=== PATIENT | male | born 1970 | race Caucasian/White ===

== ENCOUNTER 2017-07-22 17:13 | Emergency (ER) | payer MEDICAID ==
--- NOTE | 2017-07-22 17:55 | ER ---
Nurse's Notes [facility] Name: Austin Mtz Age: 47 yrs Sex: Male : 1970 Arrival Date: 07/22/2017 Time: 17:17 Bed Waiting Private MD: Diagnosis: ED Course: 07/22 17:17 Patient arrived in ED. sb2 17:30 Patient's name was called from ER lobby. No response. hb 17:38 Patient's name was called from ER lobby. No response. hb Administered Medications: No medications were administered Outcome: 17:55 Patient left the ED. hb Signatures: Katrin Bragg RN RN hb Francia Dai sb2
== END 2017-07-22 17:55 | disposition left against medical advice (07) ==
LOC: ER 17:13
DX: Z53.21 Procedure and treatment not carried out due to patient leaving prior to being seen by health care provider (principal)

== ENCOUNTER 2017-07-22 23:29 | Inpatient (IN) | payer MEDICAID ==
[2017-07-23] MEDS ORDERED: NA CHLORIDE 0.9% 2,000 ML ONE (00:39)
[2017-07-23] MEDS ORDERED: ACETAMINOPHEN 500 MG TAB ONE (00:39)
[2017-07-23 01:05] LABS: Absolute Lymphocytes (CBC) 0.6 K/uL (0.7-4.9); Absolute Monocytes 0.7 K/uL (0.1-1.3); Absolute Neutrophil 18.9 K/uL (1.8-8.0); Basophils % 0.2 % (0-1.3); Eosinophils % 0.1 % (0-4.4); Hematocrit 39.7 % (39.6-49.0); Lymphocytes % 2.9 % (15.3-44.8); MCH 29.3 pg (27.0-35.0); MCV 86.9 fL (80-100); MPV 8.8 fL (7.6-11.3); Monocytes % 3.7 % (3.3-12.3); RBC Red Blood Cell Count 4.57 M/uL (4.33-5.43)
[2017-07-23 01:37] LABS: BUN Blood Urea Nitrogen 12 mg/dL (6-20); Bicarbonate 26 mEq/L (21-31); Glucose Level 145 mg/dL (65-120); Sodium Level 138 mEq/L (135-145)
--- NOTE | 2017-07-23 01:49 | EDPHYS ---
Physician Documentation [facility] Name: Austin Mtz Age: 47 yrs Sex: Male : 1970 Arrival Date: 07/22/2017 Time: 23:29 Bed 19 Private MD: ED Physician Rian Johnson HPI: 07/23 00:01 This 47 yrs old Male presents to ER via Ambulatory with complaints of Leg pkl Pain. 00:01 The patient presents with pain, that is acute, swelling, erythema. The complaints pkl affect the medial aspect of right thigh. Onset: The symptoms/episode began/occurred yesterday. Associated signs and symptoms: Pertinent positives: fever, nausea, chills. The patient has experienced similar episodes in the past, several times. Historical: - Allergies: 07/22 23:54 Codeine; ak1 23:54 Haloperidol; ak1 - Home Meds: 23:54 None [Active]; ak1 - PMHx: 23:54 bells palsy; Bipolar disorder; Schizo-affective disorder; ak1 - PSHx: 23:54 Ear Tubes; ak1 - Immunization history:: Adult Immunizations unknown. - Social history:: Smoking status: Patient uses tobacco products, smokes one pack cigarettes per day. Patient uses street drugs, marijuana. - Ebola Screening: : No symptoms or risks identified at this time. ROS: 07/23 00:03 Eyes: Negative for injury, pain, redness, and discharge, ENT: Negative for injury, pkl pain, and discharge, Neck: Negative for injury, pain, and swelling, Cardiovascular: Negative for chest pain, palpitations, and edema, Respiratory: Negative for shortness of breath, cough, wheezing, and pleuritic chest pain, Abdomen/GI: Negative for abdominal pain, nausea, vomiting, diarrhea, and constipation, Back: Negative for injury and pain, : Negative for injury, bleeding, discharge, and swelling, Neuro: Negative for headache, weakness, numbness, tingling, and seizure. MS/extremity: Positive for erythema, pain, swelling, of the medial aspect of right thigh. Exam: 00:03 Head/Face: Normocephalic, atraumatic. Eyes: Pupils equal round and reactive to light, pkl extra-ocular motions intact. Lids and lashes normal. Conjunctiva and sclera are non-icteric and not injected. Cornea within normal limits. Periorbital areas with no swelling, redness, or edema. ENT: Nares patent. No nasal discharge, no septal abnormalities noted. Tympanic membranes are normal and external auditory canals are clear. Oropharynx with no redness, swelling, or masses, exudates, or evidence of obstruction, uvula midline. Mucous membranes moist. Neck: Trachea midline, no thyromegaly or masses palpated, and no cervical lymphadenopathy. Supple, full range of motion without nuchal rigidity, or vertebral point tenderness. No Meningismus. Chest/axilla: Normal chest wall appearance and motion. Nontender with no deformity. No lesions are appreciated. Cardiovascular: Regular rate and rhythm with a normal S1 and S2. No gallops, murmurs, or rubs. Normal PMI, no JVD. No pulse deficits. Respiratory: Lungs have equal breath sounds bilaterally, clear to auscultation and percussion. No rales, rhonchi or wheezes noted. No increased work of breathing, no retractions or nasal flaring. Abdomen/GI: Soft, non-tender, with normal bowel sounds. No distension or tympany. No guarding or rebound. No evidence of tenderness throughout. Back: No spinal tenderness. No costovertebral tenderness. Full range of motion. Neuro: Awake and alert, GCS 15, oriented to person, place, time, and situation. Cranial nerves II-XII grossly intact. Motor strength 5/5 in all extremities. Sensory grossly intact. Cerebellar exam normal. Normal gait. 00:03 Musculoskeletal/extremity: Extremities: grossly normal except: noted in the medial aspect of right thigh: erythema, pain, swelling. Vital Signs: 07/22 23:51 BP 132 / 82; Pulse 79; Resp 18; Temp 101.2(TE); Pulse Ox 98% on R/A; Weight 102.06 kg ak1 (R); Height 5 ft. 8 in. (172.72 cm) (R); Pain 09/20; 07/23 02:30 BP 129 / 75; Pulse 69; Resp 14; Temp 99.1; Pulse Ox 97% ; bp 07/22 23:51 Body Mass Index 34.21 (102.06 kg, 172.72 cm) ak1 MDM: 07/22 23:51 Patient medically screened. pkl 07/23 01:47 Data reviewed: vital signs, nurses notes, lab test result(s). pkl 07/23 00:01 Order name: CBC with Diff; Complete Time: 03:58 pkl 07/23 00:01 Order name: Chem 7; Complete Time: 01:44 pkl 07/23 00:01 Order name: Blood Culture Adult (2) pkl 06 00:01 Order name: Sed Rate; Complete Time: 03:58 pkl 07/23 00:01 Order name: D-Dimer; Complete Time: 01:24 pkl 07/23 00:03 Order name: UDS pkl 07/23 00:01 Order name: XRAY CXR (1 view) pkl 06 02:53 Order name: Manual Differential; Complete Time: 03:58 EDMS Administered Medications: 00:40 Drug: NS 0.9% 1000 ml Route: IV; Rate: 1000 ml; Site: right forearm; bp 02:57 Follow up: IV Status: Completed infusion; IV Intake: 1000ml bp 00:40 Drug: Tylenol 1000 mg Route: PO; bp 00:41 Follow up: Response: No adverse reaction bp 02:57 Follow up: Response: No adverse reaction; Temperature is decreased bp 00:41 Drug: NS 0.9% 1000 ml Route: IV; Rate: 125 ml/hr; Site: right forearm; bp 02:57 Follow up: IV Status: Infusion continued upon admission bp Disposition: 07/23/17 01:49 Hospitalization ordered by Amara Geiger for Inpatient Admission. Preliminary diagnosis is Fever. Cellulitis right leg. - Bed requested for Telemetry/MedSurg (Inpatient). - Status is Inpatient Admission. bp - Condition is Stable. - Problem is new. - Symptoms are unchanged. UTI on Admission? No Signatures: Dispatcher [employer] EDMS Laurie Garibay RN RN mw Rian Johnson MD MD pkl Muriel Mijares RN RN ak1 Jay Greenberg RN RN bp Corrections: (The following items were deleted from the chart) 01:53 01:49 Hospitalization Ordered by Amara Geiger MD for Inpatient Admission. Preliminary mw diagnosis is Fever. Cellulitis right leg. Bed requested for Telemetry/MedSurg (Inpatient). Status is Inpatient Admission. Condition is Stable. Problem is new. Symptoms are unchanged. UTI on Admission? No. pkl 02:57 01:53 07/23/2017 01:49 Hospitalization Ordered by Amara Geiger MD for Inpatient bp Admission. Preliminary diagnosis is Fever. Cellulitis right leg. Bed requested for Telemetry/MedSurg (Inpatient). Status is Inpatient Admission. Condition is Stable. Problem is new. Symptoms are unchanged. UTI on Admission? No. mw
--- NOTE | 2017-07-23 01:49 | ER ---
Nurse's Notes [facility] Name: Austin Mtz Age: 47 yrs Sex: Male : 1970 Arrival Date: 07/22/2017 Time: 23:29 Bed 19 Private MD: Diagnosis: Fever. Cellulitis right leg Presentation: 07/22 23:52 Presenting complaint: Patient states: right inner thigh pain X2 days. pt was asleep in ak1 the lobby and once woken up and told he needed to leave by registration pt chose to check in to be seen. pt was placed as eloped by day shift earlier today. Transition of care: patient was not received from another setting of care. Onset of symptoms was July 22, 2017. Risk Assessment: Do you want to hurt yourself or someone else? Patient reports no desire to harm self or others. Initial Sepsis Screen: Does the patient meet any 2 criteria? Temp <36.0*C (96.8*F)) or > 38.3*C (100.4*F). No. Patient's initial sepsis screen is negative. Does the patient have a suspected source of infection? No. Patient's initial sepsis screen is negative. Care prior to arrival: None. 23:52 Method Of Arrival: Ambulatory ak1 23:52 Acuity: FREDIS 3 bp Triage Assessment: 23:54 General: Appears in no apparent distress. Behavior is calm, cooperative. Pain: ak1 Complains of pain in medial aspect of right thigh. EENT: No signs and/or symptoms were reported regarding the EENT system. Neuro: No deficits noted. Cardiovascular: No deficits noted. Respiratory: No deficits noted. GI: No signs and/or symptoms were reported involving the gastrointestinal system. : No signs and/or symptoms were reported regarding the genitourinary system. Musculoskeletal: No signs and/or symptoms reported regarding the musculoskeletal system. Historical: - Allergies: 23:54 Codeine; ak1 23:54 Haloperidol; ak1 - Home Meds: 23:54 None [Active]; ak1 - PMHx: 23:54 bells palsy; Bipolar disorder; Schizo-affective disorder; ak1 - PSHx: 23:54 Ear Tubes; ak1 - Immunization history:: Adult Immunizations unknown. - Social history:: Smoking status: Patient uses tobacco products, smokes one pack cigarettes per day. Patient uses street drugs, marijuana. - Ebola Screening: : No symptoms or risks identified at this time. Screenin:57 Abuse screen: Denies threats or abuse. Denies injuries from another. Nutritional ak1 screening: No deficits noted. Tuberculosis screening: No symptoms or risk factors identified. Fall Risk None identified. Assessment: 07/23 00:08 General: Appears in no apparent distress. comfortable, Behavior is calm, cooperative, bp appropriate for age. Pain: Complains of pain in medial aspect of right thigh. Neuro: Level of Consciousness is awake, alert, obeys commands, Oriented to person, place, time, situation, Appropriate for age. Cardiovascular: No deficits noted. Respiratory: Airway is patent Respiratory effort is even, unlabored, Respiratory pattern is regular, symmetrical. GI: No signs and/or symptoms were reported involving the gastrointestinal system. : No signs and/or symptoms were reported regarding the genitourinary system. EENT: No deficits noted. Derm: ERYTHEMA R MEDIAL THIGH. Musculoskeletal: Circulation, motion, and sensation intact. Range of motion: intact in all extremities. 02:24 Reassessment: ADMIT MD AT B/S FOR EVAL. bp Vital Signs: 07/22 23:51 BP 132 / 82; Pulse 79; Resp 18; Temp 101.2(TE); Pulse Ox 98% on R/A; Weight 102.06 kg ak1 (R); Height 5 ft. 8 in. (172.72 cm) (R); Pain 8/10; 07/23 02:30 BP 129 / 75; Pulse 69; Resp 14; Temp 99.1; Pulse Ox 97% ; bp 07/22 23:51 Body Mass Index 34.21 (102.06 kg, 172.72 cm) ak1 ED Course: 07/22 23:29 Patient arrived in ED. es 23:51 Jay Greenberg, [place] is Primary Nurse. bp 23:51 Rian Johnson MD is Attending Physician. pkl 23:53 Triage completed. ak1 23:54 Arm band placed on Patient placed in an exam room, on a stretcher, Patient notified of ak1 wait time. 07/23 00:15 X-ray completed. Portable x-ray completed in exam room. Patient tolerated procedure kw well. 00:15 XRAY CXR (1 view) In Process Unspecified. EDMS 00:34 Patient has correct armband on for positive identification. Placed in gown. Bed in low bp position. Call light in reach. Side rails up X2. 00:34 Inserted saline lock: 20 gauge in right forearm, using aseptic technique. bp 01:26 Notified ED physician of a critical lab result(s). D-Dimer 785, WBC 20.3. ak1 01:48 Amara Geiger MD is Hospitalizing Provider. pkl 02:48 No provider procedures requiring assistance completed. Patient admitted, IV remains in bp place. Administered Medications: 00:40 Drug: NS 0.9% 1000 ml Route: IV; Rate: 1000 ml; Site: right forearm; bp 02:57 Follow up: IV Status: Completed infusion; IV Intake: 1000ml bp 00:40 Drug: Tylenol 1000 mg Route: PO; bp 00:41 Follow up: Response: No adverse reaction bp 02:57 Follow up: Response: No adverse reaction; Temperature is decreased bp 00:41 Drug: NS 0.9% 1000 ml Route: IV; Rate: 125 ml/hr; Site: right forearm; bp 02:57 Follow up: IV Status: Infusion continued upon admission bp Intake: 02:57 IV: 1000ml; Total: 1000ml. bp Outcome: 01:49 Decision to Hospitalize by Provider. pkl 02:48 Admitted to Med/surg accompanied by tech, via wheelchair, room 409, with chart. bp 02:48 Condition: stable 02:48 Instructed on the need for admit. 02:57 Patient left the ED. bp Signatures: Dispatcher [employer] Rian Jones MD MD pkKaycee Guzman Kimberlee kw Krenek, Amber RN RN ak1 Jay Greenberg, [place] RN bp Corrections: (The following items were deleted from the chart) 02:51 06/11 23:52 Acuity: FREDIS 5 ak1 bp
--- NOTE | 2017-07-23 02:38 | P.HP ---
Certification for Inpatient Patient admitted to: Inpatient With expected LOS: >2 Midnights Practitioner: I am a practitioner with admitting privileges, knowledge of patient current condition, hospital course, and medical plan of care. Services: Services provided to patient in accordance with Admission requirements found in Title 42 Section 412.3 of the Code of Federal Regulations Patient History Date of Service: 07/23/17 Reason for admission: cellulits History of Present Illness: Mr Mtz is a 47 years old male with history of schizo-affective disorder, who came to ED complaining of right leg pain. His symptoms started gradually about 2 days ago. He noticed swelling, and redness area in his inner para of his tight. Today the patient felt chills, and fatigue. At presentation, the patient was febrile, 101.2 F, Lab work remarkable for leukocytosis 20.3K, elevated D-dimer 785. He denied any nause, vomiting or diarrhea. Allergies haloperidol [From Haldol] Allergy (Verified 08/21/16 09:49) Unknown haloperidol lactate [From Haldol] Allergy (Verified 08/21/16 09:49) Unknown Codeine Allergy (Uncoded 03/04/15 11:06) Unknown Home Medications: NK [No Home Meds] 08/21/16 - Past Medical/Surgical History -: shizo-affective disorder -: ear tubes - Family History Family History: Reviewed- Non-Contributory - Social History Smoking Status: Current every day smoker Counseled patient to stop smoking for: less than 10 minutes Smoking therapy provided: Yes Patient receptive to therapy: Yes Alcohol use: Yes CD- Drugs: No Place of Residence: Home Review of Systems 10-point ROS is otherwise unremarkable Physical Examination - Physical Exam General: Alert, In no apparent distress HEENT: Atraumatic, PERRLA, Mucous membr. moist/pink, EOMI, Sclerae nonicteric Neck: Supple, 2+ carotid pulse no bruit, No LAD, Without JVD or thyroid abnormality Respiratory: Clear to auscultation bilaterally, Normal air movement Cardiovascular: Regular rate/rhythm, Normal S1 S2 Gastrointestinal: Normal bowel sounds, No tenderness Musculoskeletal: Swelling (right leg 2+), Erythema Integumentary: No rashes, Tenderness/swelling, Erythema (inner aspect of right tight.) Neurological: Normal speech, Normal strength at 5/5 x4 extr, Normal tone, Normal affect Lymphatics: No axilla or inguinal lymphadenopathy - Studies Laboratory Data (last 24 hrs) 07/23/17 00:45: Sodium 138, Potassium 4.0, BUN 12, Creatinine 0.85, Glucose 145 H 07/23/17 00:45: WBC 20.3 H*, Hgb 13.4 L, Hct 39.7, Plt Count 195 Assessment and Plan - Problems (Diagnosis) (1) Cellulitis Current Visit: Yes Status: Acute Qualifiers: Site of cellulitis: extremity Site of cellulitis of extremity: lower extremity Laterality: right Qualified Code(s): L03.115 - Cellulitis of right lower limb (2) Tobacco abuse Current Visit: Yes Status: Acute (3) Schizo affective schizophrenia Current Visit: Yes Status: Acute - Plan Mr Mtz will be admitted to the hospital due to right leg cellulitis. Right leg is significnatly more swollen than left, D-Dimer is elevated. Will start empiric anticoagulation, order venous doppler to R/O DVT. Will order IV Vancomycin and Zosyn. Blood cultures in process. - Advance Directives Does patient have a Living Will: No Does patient have a Durable POA for Healthcare: No - Code Status/Comfort Care Code Status Assessed: Yes Code Status: Full Code
[2017-07-23 02:52] LABS: Platelet Estimate ADEQ
[2017-07-23 02:53] LABS: Blood Morphology Comment NOT SEEN (NOT SEEN)
[2017-07-23] MEDS ORDERED: ONDANSETRON 4 MG/2 ML VIAL IV PRN (03:37)
[2017-07-23] MEDS ORDERED: ACETAMINOPHEN 500 MG TAB PO PRN (03:37)
[2017-07-23] MEDS: VANCOMYCIN 2 GM in NA CHLORIDE 0.9% 500 ML IVPB SCH ×2 (04:00→15:55)
[2017-07-23] MEDS ORDERED: VANCOMYCIN 1 GM/VIAL ONE (04:17)
[2017-07-23] MEDS ORDERED: NA CHLORIDE 0.9% 500 ML ONE (04:18)
[2017-07-23] MEDS: NA CHLORIDE 0.9% 1,000 ML IV SCH ×2 (04:31→13:37)
[2017-07-23] MEDS ORDERED: HYDROCODONE/APAP 7.5/325 MG TAB PO PRN (06:30)
[2017-07-23] MEDS ORDERED: TRAMADOL HCL 50 MG TAB PO PRN (06:30)
--- NOTE | 2017-07-23 08:00 | RAD REPORT ---
EXAM DESCRIPTION: Lucian Single View07/23/2017 12:16 am CLINICAL HISTORY: Fever COMPARISON: January 2017 FINDINGS: The lungs appear clear of acute infiltrate. The heart is normal size IMPRESSION: No acute abnormalities displayed
[2017-07-23 08:25] VITALS: BMI 38.3
[2017-07-23 08:40] LABS: Barbiturates NEGATIVE (NEGATIVE); Benzodiazepines NEGATIVE (NEGATIVE); Cocaine NEGATIVE (NEGATIVE); METHAMPHETAM NEGATIVE (NEGATIVE); Opiates NEGATIVE (NEGATIVE); Phencyclidine NEGATIVE (NEGATIVE); THC Cannibis POSITIVE (NEGATIVE)
[2017-07-23] MEDS ORDERED: ENOXAPARIN 100 MG/ML SYR SQ SCH (09:00)
[2017-07-23] MEDS: NICOTINE 21 MG/PAT TD SCH (09:00)
[2017-07-23] MEDS ORDERED: ENOXAPARIN 40 MG/0.4 ML SQ SCH (09:00)
[2017-07-23] MEDS: PIPER/TAZO/NS 3.375gm 3.375 GM/100 ML BAG IVPB SCH ×2 (09:39→20:09)
--- NOTE | 2017-07-23 09:51 | RAD REPORT ---
EXAM DESCRIPTION: MARYExtreyovani [facility]07/23/2017 8:41 am CLINICAL HISTORY: Right leg pain and swelling. COMPARISON: None. FINDINGS: Right common femoral, superficial femoral, popliteal and right posterior tibial veins are compressible and demonstrate augmentation. Doppler demonstrates good flow. Edema is present within the medial thigh. An abscess is not visualized. IMPRESSION: No evidence of deep venous thrombosis involving the right lower extremity.
[2017-07-23 10:39] LABS: Urine Appearance CLEAR; Urine Color YELLOW; Urine Specific Gravity 1.025 (1.005-1.030)
[2017-07-23 10:40] LABS: Urine Bilirubin NEGATIVE (NEG); Urine Blood 2+ (NEG); Urine Glucose NEGATIVE (NEG); Urine Microscopic Reflex ORDER UMIC; Urine Protein NEGATIVE (NEG); Urine Urobilinogen 0.2 mg/dL (0.2-1.0)
[2017-07-23 10:41] LABS: Urine Bacteria <20 /HPF (NONE SEEN); Urine RBC <5 /HPF (NONE SEEN)
[2017-07-23 10:42] LABS: Urine Culture Reflex Order NOT NEEDED; Urine Mucus SLIGHT /HPF (NONE SEEN)
--- NOTE | 2017-07-23 13:58 | P.PN ---
Subjective Date of Service: 07/23/17 Primary Care Provider: Unknown a Chief Complaint: cellulits Subjective: Doing well (Patient doing well this time. Pain to the right lower extremity improved.) Physical Examination - Vital Signs Temperature: 98.1 F Blood Pressure: 112/59 Pulse: 77 Respirations: 18 Pulse Ox (%): 95 - Physical Exam General: Alert, In no apparent distress, Oriented x3, Cooperative HEENT: Atraumatic, Mucous membr. moist/pink Neck: Supple, No Thyromegaly Respiratory: Clear to auscultation bilaterally, Normal air movement Cardiovascular: Normal pulses, Regular rate/rhythm Gastrointestinal: Normal bowel sounds, Soft and benign, Non-distended, No tenderness, No masses, No rebound, No guarding Musculoskeletal: No contractures Integumentary: Other (Erythematous area noted to the right thigh. Some induration noted. Pain noted with palpation. Mild swelling noted. Area marked.) Neurological: Normal speech, Normal strength at 5/5 x4 extr, Normal tone, Normal affect Lymphatics: No axilla or inguinal lymphadenopathy - Studies Laboratory Data (last 24 hrs) 07/23/17 00:45: Sodium 138, Potassium 4.0, BUN 12, Creatinine 0.85, Glucose 145 H 07/23/17 00:45: WBC 20.3 H*, Hgb 13.4 L, Hct 39.7, Plt Count 195 Medications List Reviewed: Yes Assessment & Plan - Problems (Diagnosis) (1) Cellulitis Onset Date: 07/23/17 Current Visit: Yes Status: Acute Plan: Cellulitis to the thigh region. Will continue with Zosyn and vancomycin. Blood cultures obtained. Pro calcitonin elevated. Venous Doppler of the lower extremity shows no DVT. Will continue with DVT prophylaxis. Will consult surgery for evaluation. Qualifiers: Site of cellulitis: extremity Site of cellulitis of extremity: lower extremity Laterality: right Qualified Code(s): L03.115 - Cellulitis of right lower limb (2) Tobacco abuse Onset Date: 07/23/17 Current Visit: Yes Status: Chronic Plan: Will provide nicotine patch as needed. Will address tobacco cessation. (3) Schizo affective schizophrenia Onset Date: 07/23/17 Current Visit: Yes Status: Chronic Plan: Will need to obtain and continue his home medication. (4) Tetrahydrocannabinol (THC) use disorder, mild, abuse Current Visit: Yes Status: Acute Plan: Will address THC cessation. Discharge Plan: Home Plan to discharge in: 48 Hours - Code Status/Comfort Care Code Status Assessed: Yes Time Spent Managing Pts Care (In Minutes): 55
[2017-07-24] MEDS: NA CHLORIDE 0.9% 1,000 ML IV SCH ×2 (00:15→10:55)
--- NOTE | 2017-07-24 01:30 | CON ---
Date of Consultation: 07/23/2017 Reason For Service: Right thigh cellulitis, possible abscess. Indications: This is the case of a 47-year-old who comes to us with right leg cellulitis and indurat ion for about 2 days. The patient was admitted to the hospital by the hospitalist, and a surgical co nsult was obtained. Initially, was consulted by Dr. Brown and he is out of town, so he asked me to cover the patient. The patient did agree. He does not remember any trauma. He is not sure if he h ad a spider bite or not. He denies any dysuria, hematuria, hematochezia, or melena. He denies any r ecent travel out of the country. Denies any family member sick at home. Review of Systems: Constitutional: Denies any chills, although he claimed a non-quantified fever. Respiratory: Denies any shortness of breath. Denies any discharge. Gastrointestinal: Denies any abdominal pain, nausea, vomiting, diarrhea, constipation, melena, or he matochezia. Genitourinary: Denies any dysuria or hematuria. Physical Examination: Integumentary: In the right thigh region, the patient has an area of about 20 x 20 cm area of cellul itis. There is an area of about 5 x 5 cm with induration. There is no fluctuance seen yet. No crep itus. Dorsalis pedis pulses bilaterally are present. Neurologic: Cranial nerves 2 through 12 are grossly within normal limits. Laboratory Data: Blood work shows WBC count of 20.3 with hemoglobin of 13.4, platelets of 195. Bica rb is 26. Chloride is 108. Glucose 145. Urine nitrites are negative. Venous Doppler shows no evid ence of deep vein thrombosis. Assessment: This is a 47-year-old patient with cellulitis of the right leg. This patient might not have abscess right now, but I believe it will mature into an abscess, and we explained to him the nee d for incision and drainage if this becomes an abscess. He wants to see if he can be without surgery if possible. So, the next few hours, we will be observing him. In the next few hours we noted this developed a , then he will allow me to do incision and drainage. So, in this case, I expl ained to him in advance the benefits, alternatives, and risks which include, but are not limited to i nfection, bleeding, damage to adjacent structures, anesthesia complication, nonhealing wound, MD, and even . He also understands this may not relieve his symptoms. He might need more than one kel gical range, and he may require wound care. He is going to be n.p.o. after midnight until we check o nce again on him before he can get any diet. He understands the plan and did agree. DEVENDRA/CAMRYN Voice ID: [id number] Report ID: [id number]
[2017-07-24] MEDS: VANCOMYCIN 2 GM in NA CHLORIDE 0.9% 500 ML IVPB SCH ×2 (04:04→16:10)
[2017-07-24 04:45] LABS: Absolute Lymphocytes (CBC) 1.4 K/uL (0.7-4.9); Absolute Monocytes 0.7 K/uL (0.1-1.3); Absolute Neutrophil 8.9 K/uL (1.8-8.0); Basophils % 0.2 % (0-1.3); Eosinophils % 1.1 % (0-4.4); Hematocrit 36.6 % (39.6-49.0); Lymphocytes % 12.3 % (15.3-44.8); MCH 29.2 pg (27.0-35.0); MCV 86.3 fL (80-100); MPV 9.1 fL (7.6-11.3); Monocytes % 6.5 % (3.3-12.3); RBC Red Blood Cell Count 4.24 M/uL (4.33-5.43)
[2017-07-24 04:59] LABS: BUN Blood Urea Nitrogen 7 mg/dL (6-20); Bicarbonate 26 mEq/L (21-31); Glucose Level 105 mg/dL (65-120); Magnesium 1.9 mg/dL (1.8-2.5); Potassium 3.4 mEq/L (3.6-5.0); Sodium Level 141 mEq/L (135-145)
[2017-07-24] MEDS ORDERED: KCL 20 MEQ/100 mL IVPB 20 MEQ/100 ML BAG IV SCH (06:00)
--- NOTE | 2017-07-24 07:46 | EKG ---
Test Date: 2017-07-23 Test Time: 21:32:51 Nanotechnology Engineering Technologist: RACQUEL MEASUREMENT RESULTS: Intervals: Rate: 63 MD: 160 QRSD: 120 QT: 418 QTc: 427 [place]: P: 56 MD: 160 QRS: -9 T: 47 INTERPRETIVE STATEMENTS: Normal sinus rhythm Normal ECG Compared to ECG 01/26/2017 04:17:22 Sinus bradycardia no longer present Electronically Signed On 07-24-17 07:46:00 CDT by Genaro Mena
[2017-07-24] MEDS: PIPER/TAZO/NS 3.375gm 3.375 GM/100 ML BAG IVPB SCH (08:00)
[2017-07-24] MEDS: KCL 20 MEQ/100 mL IVPB 20 MEQ/100 ML BAG IV SCH ×2 (08:00→10:55)
[2017-07-24] MEDS: NICOTINE 21 MG/PAT TD SCH (08:03)
[2017-07-24] MEDS ORDERED: ENOXAPARIN 40 MG/0.4 ML SQ SCH (09:00)
--- NOTE | 2017-07-24 09:27 | EKG ---
Test Date: 2017-07-24 Test Time: 08:30:57 Full Stack Web Developer: NELLY MEASUREMENT RESULTS: Intervals: Rate: 44 DC: 164 QRSD: 116 QT: 460 QTc: 393 [place]: P: 41 DC: 164 QRS: -1 T: 23 INTERPRETIVE STATEMENTS: Marked sinus bradycardia Abnormal ECG Compared to ECG 07/23/2017 21:32:51 Sinus rhythm no longer present Electronically Signed On 07-24-17 09:26:53 CDT by Genaro Mena
--- NOTE | 2017-07-24 10:43 | P.PN ---
Subjective Date of Service: 07/24/17 Primary Care Provider: Sarah nguyen Chief Complaint: cellulits Subjective: No new changes, Other (NPO post MN) Review of Systems General: Fever Eyes: Unremarkable ENT: Unremarkable Respiratory: Unremarkable Gastrointestinal: Unremarkable Genitourinary: Unremarkable Musculoskeletal: Unremarkable Integumentary: As per HPI Neurological: Unremarkable Lymphatics: Unremarkable Physical Examination - Vital Signs Temperature: 97.3 F Blood Pressure: 98/44 Pulse: 59 Respirations: 18 Pulse Ox (%): 97 - Physical Exam General: Alert, In no apparent distress, Oriented x3 HEENT: Atraumatic, Normocephalic Neck: Supple, 2+ carotid pulse no bruit Respiratory: Clear to auscultation bilaterally, Normal air movement Cardiovascular: No edema, Normal pulses Capillary refill: <2 Seconds Gastrointestinal: Normal bowel sounds Musculoskeletal: No clubbing Integumentary: Erythema (right inner thigh, pt states area is a birthmark that intermittently becomes infected), Other (areas of scarring from "homeless" environment, pt states he frequently gets skin infections) Neurological: Normal gait, Normal speech, Normal strength at 5/5 x4 extr Lymphatics: No axilla or inguinal lymphadenopathy External genitalia: Deferred Rectal: Deferred - Studies Microbiology Data (last 24 hrs): 07/23/17 00:45 Blood - Blood Anaerobic Blood Culture - Final 07/23/17 00:35 Blood - Blood Anaerobic Blood Culture - Final Medications List Reviewed: Yes Assessment & Plan - Problems (Diagnosis) (1) Cellulitis Onset Date: 07/23/17 Current Visit: Yes Status: Acute Qualifiers: Site of cellulitis: extremity Site of cellulitis of extremity: lower extremity Laterality: right Qualified Code(s): L03.115 - Cellulitis of right lower limb
[2017-07-24] MEDS ORDERED: Ringers Lactate 1,000 ML IV ONE (12:17)
[2017-07-24] MEDS ORDERED: PROPOFOL 200 MG/20 ML VIAL IV ONE (13:20)
[2017-07-24] MEDS ORDERED: MIDAZOLAM HCL 2 MG/2 ML INJ ONE ×2 (13:20→13:39)
[2017-07-24] MEDS ORDERED: LIDOCAINE 2% MPF 5 ML VIAL ONE (13:21)
[2017-07-24] MEDS ORDERED: FENTANYL CITR 100 MCG/2 ML ONE ×2 (13:21→13:39)
[2017-07-24] MEDS ORDERED: ONDANSETRON HCL 40 MG/20 ML VIAL ONE (13:21)
[2017-07-24] MEDS ORDERED: GLYCOPYRROLATE 0.2 MG/ML SYR ONE (13:31)
--- NOTE | 2017-07-24 13:42 | P.BOP ---
Preoperative diagnosis: right thigh abscess, cellulitis Postoperative diagnosis: same Primary procedure: Incision and drainage of complex right thigh abscess [id number] Estimated blood loss: <25cc Specimen: culture Findings: seropurulent material in an abscess Anesthesia: General Complications: None Drain(s): Other Transferred to: Recovery Room Condition: Good
[2017-07-24 14:27] VITALS: O2SAT 96
[2017-07-24 14:36] VITALS: TEMP 97.4
[2017-07-24 14:37] VITALS: BP 123/60
--- NOTE | 2017-07-24 19:18 | CON ---
Reason For Consult: Bradycardia. History Of Present Illness: Mr. Mtz came to our hospital. He came to the emergency room on the , about 2:00 in the morning, so we are about 36 hours into the hospitalization. About 2 hours ag o, he had operation in which an abscess in his right thigh was incised and drained. He has had some bradycardia. Most of it happened before that. He has had some pauses. The longest I saw was 2.0 sec onds. Somebody said there was a 4 second pause, but there is no recording in our memory and I have t o consider that hearsay. The lowest heart rate we have is 45 beats per minute. Mr. Mtz uses no medications. He has used illegal drugs in the past, Denies that now. He is a regular cigarette smok er. He has never had syncope except once when he had heat exhaustion. Physical Examination: Vital Signs: 5 feet 7 inches, 245 pounds, body mass index 38.4. HEENT: Normal. Lungs: Clear. Heart: within normal limits. The heart rate when I examined him was about 60 beats per minute. Impression: Mr. Mtz is probably relatively bradycardic with vagal reactions from abscess, pain, and sepsis. I do not think, he will need a pacemaker. Of course avoiding beta blockers would be wis e for the present time and will follow him with you, but I do not think we need to engage in an exten sive cardiac work up. CHERRY/CAMRYN Voice ID: [id number] Report ID: [id number]
--- NOTE | 2017-07-25 01:50 | OP ---
Date of Procedure: 07/24/2017 Surgeon: Raul Penaloza MD Preoperative Diagnosis: Right thigh complex abscess. Postoperative Diagnosis: Right thigh complex abscess. Procedure: Incision and drainage of complex right thigh abscess, 15 x 20 cm. Estimated Blood Loss: Less than 25 cc. Specimen: Culture. Findings: Seropurulent material in abscess area. Anesthesia: General plus local. Packin inches of Nu Gauze. Indication For Procedure: This is the case of a 47-year-old patient, comes to us with cellulitis and right thigh abscess that is increasing in size despite antibiotics. So, we explained to him the nee d for incision and drainage of that area with benefits and risks including, but not limited to infect ion, bleeding, damage to adjacent structures, anesthesia complications, nonhealing wound, SC, and fabi n . He also understands this may not relieve any symptoms. He might need more than one surgica l intervention. He understood, signed consent. Description Of Procedure: The patient was brought to the operating room, placed in supine position. Anesthesia was done without complication. The right thigh was prepped and draped in a sterile fashi on. Marcaine 0.5% injected for local anesthetic, followed by sharp incision of the skin. Incision w as carried down to deep subcutaneous tissue. We noticed this patient to have a cavity in that area w ith seropurulent material. Does not seem to be involving the muscle, but is near the fascia area. S o, the area was opened. Local lesion was explored opened. It was complex. We proceeded to pack the area with 2 inches iodoform almost entire bottle. The patient tolerated procedure well. The patien t was sent to recovery in stable condition. DEVENDRA/CAMRYN Voice ID: [id number] Report ID: [id number]
--- NOTE | 2017-07-26 02:54 | OP ---
Date of Procedure: 07/24/2017 Surgeon: Raul Penaloza MD Preoperative Diagnosis: Right thigh abscess and cellulitis. Postoperative Diagnosis: Right thigh abscess and cellulitis. Procedure: Incision and drainage of complex right thigh abscess, 15 x 28 cm. Estimated Blood Loss: Less than 25 cc. Specimen: Culture. Findings: Seropurulent discharge in an abscess. Anesthesia: General plus local. Indications: This is a case of a 47-year-old patient with multiple medical problems, who came to us with cellulitis of the right thigh, increasing in size. The patient explained the importance of inci chen and drainage. DICTATION ENDS HERE. DEVENDRA/CAMRYN Voice ID: [id number] Report ID: [id number]
== END 2017-07-24 17:05 | disposition left against medical advice (07) | DRG 603 ==
LOC: ER 23:29 → ERHOLD 07-23 01:51 → 4TH 07-23 02:42
PROVIDERS: ADMIT Internal Medicine; ATTEND Internal Medicine
PROC: 0J9L3ZX Drainage of Right Upper Leg Subcutaneous Tissue and Fascia, Percutaneous Approach, Diagnostic (ICD-10-PCS; principal; 2017-07-24 12:30)
DX: L03.115 Cellulitis of right lower limb (principal); F25.9 Schizoaffective disorder, unspecified; R00.1 Bradycardia, unspecified; F17.210 Nicotine dependence, cigarettes, uncomplicated; F12.10 Cannabis abuse, uncomplicated
CPT/HCPCS: 36415; 71045; 80048; 80202; 80307; 81003; 81015; 83735; 84145; 85025; 85379; 85652; 87040; 87070; 87075; 87205; 93005; 93971; 96360; 96361; 99285; J1650; J2250; J2405; J2543; J3010; J7030

== ENCOUNTER 2017-09-05 04:14 | Emergency (ER) | payer MEDICAID ==
--- NOTE | 2017-09-05 04:38 | ER ---
Nurse's Notes [facility] Name: Austin Mtz Age: 47 yrs Sex: Male : 1970 Arrival Date: 09/05/2017 Time: 04:16 Bed 5 Private MD: Diagnosis: Cellulitis and acute lymphangitis of other parts of limb-post surgical wound Presentation: 09/05 04:17 Presenting complaint: Patient states: DR MCDONOUGH DID A PROCEDURE ON MY LEG AND NOW bp IT'S INFECTED. Transition of care: patient was not received from another setting of care. Onset of symptoms is unknown. Risk Assessment: Do you want to hurt yourself or someone else? Patient reports no desire to harm self or others. Initial Sepsis Screen: Does the patient meet any 2 criteria? No. Patient's initial sepsis screen is negative. Does the patient have a suspected source of infection? Yes:. Care prior to arrival: None. 04:17 Method Of Arrival: EMS: [facility] bp 04:17 Acuity: FREDIS 4 bp Triage Assessment: 04:19 General: Appears in no apparent distress. comfortable, obese, Behavior is calm, bp cooperative, appropriate for age. Pain: Complains of pain in right hamstring. EENT: No deficits noted. Neuro: Level of Consciousness is awake, alert, obeys commands, Oriented to Appropriate for age. Cardiovascular: No deficits noted. Respiratory: Airway is patent Respiratory effort is even, unlabored, Respiratory pattern is regular, symmetrical. GI: No signs and/or symptoms were reported involving the gastrointestinal system. : No signs and/or symptoms were reported regarding the genitourinary system. Derm: Wound noted right hamstring Wound is 3CM POST SURGICAL WOUND. Musculoskeletal: Circulation, motion, and sensation intact. Range of motion: intact in all extremities. Historical: - Allergies: 04:19 Codeine; bp 04:19 Haloperidol; bp - Home Meds: 04:19 None [Active]; bp - PMHx: 04:19 Bipolar disorder; Schizo-affective disorder; bells palsy; bp - Immunization history:: Adult Immunizations up to date. - Social history:: Smoking status: Patient uses tobacco products, denies chronic smoking, but will smoke occasionally, Patient uses street drugs, marijuana. - Ebola Screening: : Patient negative for fever greater than or equal to 101.5 degrees Fahrenheit, and additional compatible Ebola Virus Disease symptoms Patient denies exposure to infectious person Patient denies travel to an Ebola-affected area in the 21 days before illness onset No symptoms or risks identified at this time. - Family history:: not pertinent. Screenin:23 Abuse screen: Denies threats or abuse. Denies injuries from another. Nutritional bp screening: No deficits noted. Tuberculosis screening: No symptoms or risk factors identified. Fall Risk None identified. Assessment: 04:22 General: SEE TRIAGE NOTE. 47YO WM P/W R POSTERIOR THIGH SURGICAL WOUND AFTER I\T\D BY DR bp MCDONOUGH. 05:03 Reassessment: PT D/C HOME AMBULATORY, DX WITH CELLULITIS. bp Vital Signs: 04:17 BP 152 / 82; Pulse 52; Resp 14; Temp 98.1; Pulse Ox 97% ; Weight 104.33 kg; Height 5 bp ft. 10 in. (177.80 cm); 04:17 Body Mass Index 33.00 (104.33 kg, 177.80 cm) bp ED Course: 04:16 Patient arrived in ED. bp 04:17 Arm band placed on. bp 04:18 Triage completed. bp 04:23 Allergy band placed. Bed in low position. Call light in reach. Side rails up X2. bp 04:25 Geraldo Almaraz MD is Attending Physician. elvira 04:32 Jay Greenberg, [place] is Primary Nurse. bp 04:36 Raul Mcdonough MD is Referral Physician. elvira 05:04 No provider procedures requiring assistance completed. Patient did not have IV access bp during this emergency room visit. Dressings: non-adherent dressing x 1 medial aspect of right thigh. Administered Medications: 05:02 Drug: Bactrim (160 mg-800 mg (DS) 1 tablet Route: PO; bp 05:03 Follow up: Response: Medication administered at discharge. bp 05:02 Drug: Bactroban Ointment 2 % 1 application Route: Topical; Site: affected area; bp Outcome: 04:37 Discharge ordered by . elvira 05:04 Discharged to home ambulatory. bp 05:04 Condition: stable 05:04 Discharge instructions given to patient, Instructed on discharge instructions, follow up and referral plans. medication usage, wound care, Demonstrated understanding of instructions, follow-up care, medications, wound care, Prescriptions given X 2. 05:05 Patient left the ED. bp Signatures: Geraldo Almaraz MD MD cha Peltier [place], [place] RN bp
--- NOTE | 2017-09-05 04:38 | EDPHYS ---
Physician Documentation [facility] Name: Austin Mtz Age: 47 yrs Sex: Male : 1970 Arrival Date: 09/05/2017 Time: 04:16 Bed 5 Private MD: ED Physician Geraldo Almaraz HPI: 09/05 04:33 This 47 yrs old Male presents to ER via EMS with complaints of Post Surgical elvira Pain. 04:33 The patient presents with pain, tenderness, sp procedure. The complaints affect the elvira right hamstring. Context: The problem was sustained at an unknown site. Onset: The symptoms/episode began/occurred 4 day(s) ago. Modifying factors: The symptoms are alleviated by elevating leg, the symptoms are aggravated by movement, bending knee. Associated signs and symptoms: The patient has no apparent associated signs or symptoms. Treatment prior to arrival includes: no previous treatment. Severity of symptoms: At their worst the symptoms were mild, in the emergency department the symptoms are unchanged. The patient has not experienced similar symptoms in the past. Historical: - Allergies: 04:19 Codeine; bp 04:19 Haloperidol; bp - Home Meds: 04:19 None [Active]; bp - PMHx: 04:19 Bipolar disorder; Schizo-affective disorder; bells palsy; bp - Immunization history:: Adult Immunizations up to date. - Social history:: Smoking status: Patient uses tobacco products, denies chronic smoking, but will smoke occasionally, Patient uses street drugs, marijuana. - Ebola Screening: : Patient negative for fever greater than or equal to 101.5 degrees Fahrenheit, and additional compatible Ebola Virus Disease symptoms Patient denies exposure to infectious person Patient denies travel to an Ebola-affected area in the 21 days before illness onset No symptoms or risks identified at this time. - Family history:: not pertinent. ROS: 04:33 Constitutional: Negative for fever, chills, and weight loss, Eyes: Negative for injury, elvira pain, redness, and discharge, ENT: Negative for injury, pain, and discharge, Neck: Negative for injury, pain, and swelling, Cardiovascular: Negative for chest pain, palpitations, and edema, Respiratory: Negative for shortness of breath, cough, wheezing, and pleuritic chest pain, Abdomen/GI: Negative for abdominal pain, nausea, vomiting, diarrhea, and constipation, Back: Negative for injury and pain, : Negative for injury, bleeding, discharge, and swelling, Skin: Negative for injury, rash, and discoloration, Neuro: Negative for headache, weakness, numbness, tingling, and seizure, Psych: Negative for depression, anxiety, suicide ideation, homicidal ideation, and hallucinations, Allergy/Immunology: Negative for hives, rash, and allergies, Endocrine: Negative for neck swelling, polydipsia, polyuria, polyphagia, and marked weight changes, Hematologic/Lymphatic: Negative for swollen nodes, abnormal bleeding, and unusual bruising. 04:33 MS/extremity: Positive for pain. Exam: 04:33 Constitutional: This is a well developed, well nourished patient who is awake, alert, elvira and in no acute distress. Head/Face: Normocephalic, atraumatic. Eyes: Pupils equal round and reactive to light, extra-ocular motions intact. Lids and lashes normal. Conjunctiva and sclera are non-icteric and not injected. Cornea within normal limits. Periorbital areas with no swelling, redness, or edema. ENT: Nares patent. No nasal discharge, no septal abnormalities noted. Tympanic membranes are normal and external auditory canals are clear. Oropharynx with no redness, swelling, or masses, exudates, or evidence of obstruction, uvula midline. Mucous membranes moist. Neck: Trachea midline, no thyromegaly or masses palpated, and no cervical lymphadenopathy. Supple, full range of motion without nuchal rigidity, or vertebral point tenderness. No Meningismus. Chest/axilla: Normal chest wall appearance and motion. Nontender with no deformity. No lesions are appreciated. Cardiovascular: Regular rate and rhythm with a normal S1 and S2. No gallops, murmurs, or rubs. Normal PMI, no JVD. No pulse deficits. Respiratory: Lungs have equal breath sounds bilaterally, clear to auscultation and percussion. No rales, rhonchi or wheezes noted. No increased work of breathing, no retractions or nasal flaring. Abdomen/GI: Soft, non-tender, with normal bowel sounds. No distension or tympany. No guarding or rebound. No evidence of tenderness throughout. Back: No spinal tenderness. No costovertebral tenderness. Full range of motion. Male : Normal genitalia with no discharge or lesions. MS/ Extremity: Pulses equal, no cyanosis. Neurovascular intact. Full, normal range of motion. Neuro: Awake and alert, GCS 15, oriented to person, place, time, and situation. Cranial nerves II-XII grossly intact. Motor strength 5/5 in all extremities. Sensory grossly intact. Cerebellar exam normal. Normal gait. Psych: Awake, alert, with orientation to person, place and time. Behavior, mood, and affect are within normal limits. 04:33 Skin: Appearance: Color: normal in color, Temperature: normal temperature, Moisture: dry, petechiae, not noted, ecchymosis, not noted, flushing, not noted, diaphoresis is not appreciated. Vital Signs: 04:17 BP 152 / 82; Pulse 52; Resp 14; Temp 98.1; Pulse Ox 97% ; Weight 104.33 kg; Height 5 bp ft. 10 in. (177.80 cm); 04:17 Body Mass Index 33.00 (104.33 kg, 177.80 cm) bp MDM: 04:26 Patient medically screened. [facility] 04:38 Data reviewed: vital signs, nurses notes. [facility] 09/05 04:32 Order name: Wound Care: wet to dry; Complete Time: 04:34 [facility] Administered Medications: 05:02 Drug: Bactrim (160 mg-800 mg (DS) 1 tablet Route: PO; bp 05:03 Follow up: Response: Medication administered at discharge. bp 05:02 Drug: Bactroban Ointment 2 % 1 application Route: Topical; Site: affected area; bp Disposition: 09/05/17 04:37 Discharged to Home. Impression: Cellulitis and acute lymphangitis of other parts of limb - post surgical wound. - Condition is Stable. - Discharge Instructions: Cellulitis, Adult, [id number]. - Prescriptions for Bactroban 2 % Topical Ointment - Apply to affected area 1 application by TOPICAL route every 12 hours; 30 gram. Bactrim DS 800- 160 mg Oral Tablet - take 1 tablet by ORAL route every 12 hours for 10 days; 20 tablet. - Medication Reconciliation Form, Thank You Letter, Antibiotic Education, Prescription Opioid Use form. - Follow up: Private Physician; When: 2 - 3 days; Reason: Recheck today's complaints, Continuance of care, Re-evaluation by your physician. Follow up: Raul Penaloza MD; When: 2 - 3 days; Reason: Recheck today's complaints, Re-evaluation by your physician. - Problem is new. - Symptoms have improved. Signatures: Geraldo Almaraz MD MD cha Peltier, Brian RN RN bp Corrections: (The following items were deleted from the chart) 05:05 04:37 09/05/2017 04:37 Discharged to Home. Impression: Cellulitis and acute bp lymphangitis of other parts of limb - post surgical wound. Condition is Stable. Forms are Medication Reconciliation Form, Thank You Letter, Antibiotic Education, Prescription Opioid Use. Follow up: Private Physician; When: 2 - 3 days; Reason: Recheck today's complaints, Continuance of care, Re-evaluation by your physician. Follow up: Raul Penaloza; When: 2 - 3 days; Reason: Recheck today's complaints, Re-evaluation by your physician. Problem is new. Symptoms have improved. elvira
[2017-09-05] MEDS ORDERED: SMZ./TMP. 800/160 MG TABLET ONE (04:51)
[2017-09-05 05:09] VITALS: BP 152/82; TEMP 98.1; O2SAT 97
== END 2017-09-05 05:05 | disposition home or self-care (01) ==
LOC: ER 04:14
DX: L03.115 Cellulitis of right lower limb (principal); L03.125 Acute lymphangitis of right lower limb; F17.200 Nicotine dependence, unspecified, uncomplicated; Z88.6 Allergy status to analgesic agent; Z88.8 Allergy status to other drugs, medicaments and biological substances
CPT/HCPCS: 99283

== ENCOUNTER 2018-04-07 01:44 | Emergency (ER) | payer MEDICAID ==
--- NOTE | 2018-04-07 02:04 | ER ---
Nurse's Notes [facility] Name: Austin Mtz Age: 48 yrs Sex: Male : 1970 Arrival Date: 04/07/2018 Time: 01:48 Bed 28 Private MD: Diagnosis: Folliculitis Presentation: 04/07 01:59 Presenting complaint: Patient states: he has a rash on his legs for an unknown amount bb of time which is itching. Transition of care: patient was not received from another setting of care. Onset of symptoms is unknown. Risk Assessment: Do you want to hurt yourself or someone else? Patient reports no desire to harm self or others. Initial Sepsis Screen: Does the patient meet any 2 criteria? No. Patient's initial sepsis screen is negative. Does the patient have a suspected source of infection? No. Patient's initial sepsis screen is negative. Care prior to arrival: None. 01:59 Method Of Arrival: Ambulatory bb 01:59 Acuity: FREDIS 5 bb Historical: - Allergies: 02:00 Codeine; bb 02:00 Haloperidol; bb - Home Meds: 02:00 None [Active]; bb - PMHx: 02:00 bells palsy; Bipolar disorder; Schizo-affective disorder; bb - PSHx: 02:00 Ear Tubes; surgery to leg; bb - Immunization history:: Adult Immunizations unknown. - Social history:: Smoking status: Patient uses tobacco products, smokes 1.5 packs per day, Patient uses alcohol, but reports only rare drinking. street drugs, marijuana. - Ebola Screening: : No symptoms or risks identified at this time. - Family history:: not pertinent. - Hospitalizations: : No recent hospitalization is reported. Screenin:01 Abuse screen: Denies threats or abuse. Denies injuries from another. Nutritional rv screening: No deficits noted. Tuberculosis screening: No symptoms or risk factors identified. Fall Risk None identified. Assessment: 02:01 General: Appears in no apparent distress. comfortable, Behavior is calm, cooperative. rv Pain: Denies pain. Neuro: Level of Consciousness is awake, alert, obeys commands, Oriented to person, place, time, situation. Cardiovascular: Capillary refill < 3 seconds. Respiratory: Airway is patent. GI: No signs and/or symptoms were reported involving the gastrointestinal system. : No signs and/or symptoms were reported regarding the genitourinary system. EENT: No signs and/or symptoms were reported regarding the EENT system. Derm: Rash noted that is itchy. Musculoskeletal: No signs and/or symptoms reported regarding the musculoskeletal system. Vital Signs: 02:00 BP 111 / 73; Pulse 80; Resp 16 S; Temp 97.9(O); Pulse Ox 93% on R/A; Weight 106.59 kg bb (R); Height 5 ft. 10 in. (177.80 cm) (R); Pain 0/10; 02:00 Body Mass Index 33.72 (106.59 kg, 177.80 cm) ED Course: 01:48 Patient arrived in ED. es 01:52 Parker Farmer MD is Attending Physician. rn 01:59 Triage completed. bb 02:00 Arm band placed on Patient placed in an exam room, on a stretcher, on pulse oximetry. bb 02:02 Patient has correct armband on for positive identification. Bed in low position. Call rv light in reach. Pulse ox on. NIBP on. 02:02 No provider procedures requiring assistance completed. Patient did not have IV access rv during this emergency room visit. Administered Medications: No medications were administered Outcome: 02:02 Discharged to home ambulatory. rv 02:02 Condition: good 02:02 Discharge instructions given to patient, Instructed on discharge instructions, follow up and referral plans. medication usage, Demonstrated understanding of instructions, follow-up care, medications, Prescriptions given X 1. 02:04 Discharge ordered by . rn 02:11 Patient left the ED. rv Signatures: Kaycee Todd Brenda RN RN bb Parker Farmer MD MD rn Vicente, Ronaldo, RN RN rv
--- NOTE | 2018-04-07 02:04 | EDPHYS ---
Physician Documentation [facility] Name: Austin Mtz Age: 48 yrs Sex: Male : 1970 Arrival Date: 04/07/2018 Time: 01:48 Bed 28 Private MD: ED Physician Parker Farmer HPI: 04/07 02:01 This 48 yrs old Male presents to ER via Ambulatory with complaints of Rash, rn Itching. 02:01 The patient's rash thought to be caused by an unknown cause. The rash is located on the rn right leg and left leg. The rash can be described as erythematous, pustular. Onset: The symptoms/episode began/occurred 3 week(s) ago. Severity of symptoms: At their worst the symptoms were mild in the emergency department the symptoms are unchanged. The patient has experienced a previous episode. Reports rash to both thighs, pustular, no fever, no trauma, states keeping clean but homeless. Denies drug use. Has had skin infections in past. . Historical: - Allergies: 02:00 Codeine; bb 02:00 Haloperidol; bb - Home Meds: 02:00 None [Active]; bb - PMHx: 02:00 bells palsy; Bipolar disorder; Schizo-affective disorder; bb - PSHx: 02:00 Ear Tubes; surgery to leg; bb - Immunization history:: Adult Immunizations unknown. - Social history:: Smoking status: Patient uses tobacco products, smokes 1.5 packs per day, Patient uses alcohol, but reports only rare drinking. street drugs, marijuana. - Ebola Screening: : No symptoms or risks identified at this time. - Family history:: not pertinent. - Hospitalizations: : No recent hospitalization is reported. ROS: 02:01 Constitutional: Negative for fever, chills, and weight loss, Skin: + rash rn Exam: 02:01 Constitutional: This is a well developed, well nourished patient who is awake, alert, rn and in no acute distress. Skin: Warm, dry, + mild pustular lesions anterior bilateral thighs, no abscess or fluctuance. Vital Signs: 02:00 BP 111 / 73; Pulse 80; Resp 16 S; Temp 97.9(O); Pulse Ox 93% on R/A; Weight 106.59 kg bb (R); Height 5 ft. 10 in. (177.80 cm) (R); Pain 0/10; 02:00 Body Mass Index 33.72 (106.59 kg, 177.80 cm) livier MDM: 01:52 Patient medically screened. rn 02:01 Differential diagnosis: folliculitis. Data reviewed: vital signs, nurses notes, and as rn a result, I will discharge patient. Counseling: I had a detailed discussion with the patient and/or guardian regarding: the historical points, exam findings, and any diagnostic results supporting the discharge/admit diagnosis, the need for outpatient follow up, to return to the emergency department if symptoms worsen or persist or if there are any questions or concerns that arise at home. Special discussion: I discussed with the patient/guardian in detail that at this point there is no indication for admission to the hospital. It is understood, however, that if the symptoms persist or worsen the patient needs to return immediately for re-evaluation. Administered Medications: No medications were administered Disposition: 04/07/18 02:04 Discharged to Home. Impression: Folliculitis. - Condition is Stable. - Discharge Instructions: Folliculitis. - Prescriptions for Clindamycin HCl 300 mg Oral Capsule - take 1 capsule by ORAL route every 6 hours for 10 days; 40 capsule. - Medication Reconciliation Form, Thank You Letter, Antibiotic Education, Prescription Opioid Use form. - Follow up: Private Physician; When: As needed; Reason: Recheck today's complaints, Re-evaluation by your physician. - Problem is an ongoing problem. - Symptoms have improved. Signatures: Vianca Romero RN RN bb Nieto, Roman, MD MD rn Vicente, Ronaldo, RN RN rv Corrections: (The following items were deleted from the chart) 02:11 02:04 04/07/2018 02:04 Discharged to Home. Impression: Folliculitis. Condition is rv Stable. Forms are Medication Reconciliation Form, Thank You Letter, Antibiotic Education, Prescription Opioid Use. Follow up: Private Physician; When: As needed; Reason: Recheck today's complaints, Re-evaluation by your physician. Problem is an ongoing problem. Symptoms have improved. rn
[2018-04-07 02:18] VITALS: BP 111/73; TEMP 97.9; O2SAT 93
== END 2018-04-07 02:11 | disposition home or self-care (01) ==
LOC: ER 01:44
DX: L73.9 Follicular disorder, unspecified (principal); F17.210 Nicotine dependence, cigarettes, uncomplicated; Z88.5 Allergy status to narcotic agent; Z88.8 Allergy status to other drugs, medicaments and biological substances
CPT/HCPCS: 99283

== ENCOUNTER 2018-04-27 18:46 | Emergency (ER) | payer MEDICAID ==
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
--- NOTE | 2018-04-27 20:23 | EDPHYS ---
Physician Documentation [facility] Name: Austin Mtz Age: 48 yrs Sex: Male : 1970 Arrival Date: 04/27/2018 Time: 18:48 Bed 12 Private MD: ED Physician Amadeo Ortega HPI: 04/27 20:17 This 48 yrs old Male presents to ER via Ambulatory with complaints of Skin pm1 Problem. 20:17 The patient's rash thought to be caused by an unknown cause. The rash is located on the pm1 left and right quadriceps and dorsum of right hand. Onset: The symptoms/episode began/occurred 6 week(s) ago. Associated signs and symptoms: Pertinent positives: itching, Pertinent negatives: fever, swelling of lips, swelling of throat, swelling of tongue, vomiting, wheezing, discharge. Severity of symptoms: in the emergency department the symptoms are unchanged. Treatment given at home: none. The patient has not recently seen a physician. Patient is seeking antibiotics for a rash to his thighs and to the back of his right hand. Historical: - Allergies: 19:12 Codeine; bb 19:12 Haloperidol; bb - Home Meds: 19:12 None [Active]; bb - PMHx: 19:12 bells palsy; Bipolar disorder; Schizo-affective disorder; bb - PSHx: 19:12 Ear Tubes; bb - Immunization history:: Adult Immunizations unknown. - Social history:: Smoking status: Patient uses tobacco products, smokes one pack cigarettes per day. Patient/guardian denies using alcohol, street drugs. - Ebola Screening: : No symptoms or risks identified at this time. ROS: 19:12 Constitutional: Negative for fever, chills, and weight loss, Eyes: Negative for injury, pm1 pain, redness, and discharge, ENT: Negative for injury, pain, and discharge, Neck: Negative for injury, pain, and swelling, Cardiovascular: Negative for chest pain, palpitations, and edema, Respiratory: Negative for shortness of breath, cough, wheezing, and pleuritic chest pain, Abdomen/GI: Negative for abdominal pain, nausea, vomiting, diarrhea, and constipation, Back: Negative for injury and pain, : Negative for injury, bleeding, discharge, and swelling, MS/Extremity: Negative for injury and deformity. 19:12 Neuro: Negative for headache, weakness, numbness, tingling, and seizure. 19:12 Skin: Positive for rash, Negative for abscesses, cellulitis. Exam: 19:12 Constitutional: This is a well developed, well nourished patient who is awake, alert, pm1 and in no acute distress. Head/Face: Normocephalic, atraumatic. Chest/axilla: Normal chest wall appearance and motion. Nontender with no deformity. No lesions are appreciated. Cardiovascular: Regular rate and rhythm with a normal S1 and S2. No gallops, murmurs, or rubs. Normal PMI, no JVD. No pulse deficits. Respiratory: Lungs have equal breath sounds bilaterally, clear to auscultation and percussion. No rales, rhonchi or wheezes noted. No increased work of breathing, no retractions or nasal flaring. Back: No spinal tenderness. No costovertebral tenderness. Full range of motion. 19:12 MS/ Extremity: Pulses equal, no cyanosis. Neurovascular intact. Full, normal range of motion. 19:12 Skin: Appearance: normal except for affected area, consistent with contact dermatitis. 19:12 Neuro: Orientation: is normal, Motor: is normal, moves all fours. Vital Signs: 19:12 BP 131 / 80; Pulse 57; Resp 16 S; Temp 98.1(O); Pulse Ox 98% on R/A; Weight 106.14 kg bb (M); Height 5 ft. 11 in. (180.34 cm) (R); Pain 0/10; 19:12 Body Mass Index 32.64 (106.14 kg, 180.34 cm) bb MDM: 20:17 Patient medically screened. pm1 20:21 Data reviewed: vital signs. Data interpreted: Pulse oximetry: on room air is 98 %. pm1 Interpretation: normal. Counseling: I had a detailed discussion with the patient and/or guardian regarding: the historical points, exam findings, and any diagnostic results supporting the discharge/admit diagnosis. Administered Medications: No medications were administered Disposition: 04/28 00:12 Co-signature as Attending Physician, Amadeo Ortega MD. Disposition: 04/27/18 20:22 Discharged to Home. Impression: Rash and other nonspecific skin eruption. - Condition is Stable. - Discharge Instructions: Rash. - Prescriptions for Bactroban 2 % Topical Ointment - Apply to affected area 1 application by TOPICAL route every 12 hours; 30 gram. Doxycycline Hyclate 100 mg Oral Tablet - take 1 tablet by ORAL route every 12 hours; 20 tablet. - Medication Reconciliation Form, Thank You Letter, Antibiotic Education form. - Follow up: Emergency Department; When: As needed; Reason: Worsening of condition. Follow up: Private Physician; When: 2 - 3 days; Reason: Recheck today's complaints, Continuance of care, Re-evaluation by your physician. - Problem is new. - Symptoms have improved. Signatures: Lizette Gallagher RN RN fc Vianca Romero RN RN bb Jonathan Freed, SCRAP DROP CRANE OPERATOR SCRAP DROP CRANE OPERATOR pm1 Amadeo Ortega MD MD gs Corrections: (The following items were deleted from the chart) 04/27 20:35 20:22 04/27/2018 20:22 Discharged to Home. Impression: Rash and other nonspecific skin fc eruption. Condition is Stable. Forms are Medication Reconciliation Form, Thank You Letter, Antibiotic Education, Prescription Opioid Use. Follow up: Emergency Department; When: As needed; Reason: Worsening of condition. Follow up: Private Physician; When: 2 - 3 days; Reason: Recheck today's complaints, Continuance of care, Re-evaluation by your physician. Problem is new. Symptoms have improved. pm1
[2018-04-27 20:41] VITALS: BP 131/80; TEMP 98.1; O2SAT 98
== END 2018-04-27 20:35 | disposition home or self-care (01) ==
LOC: ER 18:46
DX: R21 Rash and other nonspecific skin eruption (principal); F17.210 Nicotine dependence, cigarettes, uncomplicated; Z88.5 Allergy status to narcotic agent
CPT/HCPCS: 99282

== ENCOUNTER 2018-07-19 00:22 | Emergency (ER) | payer MEDICAID ==
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
[2018-07-19] MEDS ORDERED: CLINDAMYCIN HCL 150 MG CAP ONE (01:37)
[2018-07-19 01:49] VITALS: BP 116/81; TEMP 98.2; O2SAT 98
--- NOTE | 2018-07-20 01:36 | EDPHYS ---
Physician Documentation [facility] Name: Austin Mtz Age: 48 yrs Sex: Male : 1970 Arrival Date: 07/19/2018 Time: 00:26 Bed 17 Private MD: Sha Matos E ED Physician Polo Rothman HPI: 07/19 06:09 This 48 yrs old Male presents to ER via Ambulatory with complaints of tw4 Redness/pain to scar on right leg. 06:09 The patient presents with cellulitis of the medial aspect of right thigh. Description: tw4 The affected area is moderate sized. Onset: The symptoms/episode began/occurred today. Possible cause(s): unknown. Associated signs and symptoms: The patient has no apparent associated signs or symptoms. Modifying factors: the symptoms are alleviated by nothing, the symptoms are aggravated by nothing. The patient has not experienced similar symptoms in the past. Historical: - Allergies: 00:59 Codeine; jd3 00:59 Haloperidol; jd3 - Home Meds: 00:59 None [Active]; jd3 - PMHx: 00:59 bells palsy; Bipolar disorder; Schizo-affective disorder; jd3 - PSHx: 00:59 Ear Tubes; right leg mass sx; jd3 - Immunization history:: Adult Immunizations unknown. - Social history:: Smoking status: Patient uses tobacco products, smokes one pack cigarettes per day. Patient uses street drugs, marijuana. - Ebola Screening: : Patient negative for fever greater than or equal to 101.5 degrees Fahrenheit, and additional compatible Ebola Virus Disease symptoms. ROS: 06:09 Constitutional: Negative for fever, chills, and weight loss, Eyes: Negative for injury, tw4 pain, redness, and discharge, Cardiovascular: Negative for chest pain, palpitations, and edema, Respiratory: Negative for shortness of breath, cough, wheezing, and pleuritic chest pain, Abdomen/GI: Negative for abdominal pain, nausea, vomiting, diarrhea, and constipation, Back: Negative for injury and pain. 06:09 Skin: Positive for cellulitis, Negative for abrasions, abscesses, avulsion, burn. Exam: 06:09 Constitutional: This is a well developed, well nourished patient who is awake, alert, tw4 and in no acute distress. Head/Face: Normocephalic, atraumatic. Chest/axilla: Normal chest wall appearance and motion. Nontender with no deformity. No lesions are appreciated. Cardiovascular: Regular rate and rhythm with a normal S1 and S2. No gallops, murmurs, or rubs. Normal PMI, no JVD. No pulse deficits. Respiratory: Lungs have equal breath sounds bilaterally, clear to auscultation and percussion. No rales, rhonchi or wheezes noted. No increased work of breathing, no retractions or nasal flaring. Abdomen/GI: Soft, non-tender, with normal bowel sounds. No distension or tympany. No guarding or rebound. No evidence of tenderness throughout. Back: No spinal tenderness. No costovertebral tenderness. Full range of motion. 06:09 Musculoskeletal/extremity: Extremities: noted in the medial aspect of right thigh: erythema. Vital Signs: 01:01 BP 116 / 81; Pulse 81; Resp 18 S; Temp 98.2(O); Pulse Ox 98% on R/A; Weight 99.79 kg jd3 (R); Height 5 ft. 9 in. (175.26 cm) (R); Pain 2/10; 01:01 Body Mass Index 32.49 (99.79 kg, 175.26 cm) jd3 MDM: 00:36 Patient medically screened. tw4 Administered Medications: 01:32 Drug: Cleocin 300 mg Route: PO; jd3 01:34 Follow up: Response: Medication administered at discharge. jd3 Disposition: 07/19/18 01:14 Discharged to Home. Impression: Cellulitis of right lower limb. - Condition is Stable. - Discharge Instructions: Cellulitis, Adult. - Prescriptions for Cleocin 300 mg Oral Capsule - take 1 capsule by ORAL route every 6 hours for 10 days; 40 capsule. - Medication Reconciliation Form, Thank You Letter, Antibiotic Education, Prescription Opioid Use form. - Follow up: Sha Matos MD; When: Upon discharge from the Emergency Department; Reason: If symptoms return, Recheck today's complaints, Continuance of care. - Problem is new. - Symptoms have improved. Signatures: Kevin Phipps RN RN jd3 Polo Rothman MD MD tw4 Corrections: (The following items were deleted from the chart) 01:34 01:14 07/19/2018 01:14 Discharged to Home. Impression: Cellulitis of right lower limb. jd3 Condition is Stable. Forms are Medication Reconciliation Form, Thank You Letter, Antibiotic Education, Prescription Opioid Use. Follow up: Sha Matos; When: Upon discharge from the Emergency Department; Reason: If symptoms return, Recheck today's complaints, Continuance of care. Problem is new. Symptoms have improved. tw4
== END 2018-07-19 01:34 | disposition home or self-care (01) ==
LOC: ER 00:22
DX: L03.115 Cellulitis of right lower limb (principal); F17.210 Nicotine dependence, cigarettes, uncomplicated; F12.90 Cannabis use, unspecified, uncomplicated; Z88.6 Allergy status to analgesic agent
CPT/HCPCS: 99283

== ENCOUNTER 2018-07-23 23:14 | Emergency (ER) | payer MEDICAID ==
--- NOTE | 2018-07-23 23:30 | ER ---
Nurse's Notes [facility] Name: Austin Mtz Age: 48 yrs Sex: Male : 1970 Arrival Date: 07/23/2018 Time: 23:15 Bed 27 Private MD: Diagnosis: Insect bite (nonvenomous) of lower leg Presentation: 07/23 23:25 Presenting complaint: Patient states: I have rashes. probably from mosquitoes. rv Transition of care: patient was not received from another setting of care. Onset of symptoms was July 23, 2018 at 23:00. Risk Assessment: Do you want to hurt yourself or someone else? Patient reports no desire to harm self or others. Initial Sepsis Screen: Does the patient meet any 2 criteria? No. Patient's initial sepsis screen is negative. Does the patient have a suspected source of infection? No. Patient's initial sepsis screen is negative. 23:25 Method Of Arrival: Ambulatory rv 23:25 Acuity: FREDIS 4 rv 23:37 Care prior to arrival: None. rv Historical: - Allergies: 23:28 Codeine; rv 23:28 Haloperidol; rv - Home Meds: 23:28 None [Active]; rv - PMHx: 23:28 bells palsy; Bipolar disorder; Schizo-affective disorder; rv - PSHx: 23:28 None; rv - Immunization history:: Adult Immunizations up to date. - Social history:: Smoking status: Patient uses tobacco products, smokes one-half pack cigarettes per day. - Ebola Screening: : No symptoms or risks identified at this time. Screenin:31 Abuse screen: Denies threats or abuse. Denies injuries from another. Nutritional rv screening: No deficits noted. Tuberculosis screening: No symptoms or risk factors identified. Fall Risk None identified. Assessment: 23:29 General: Appears in no apparent distress. comfortable, Behavior is cooperative. Pain: rv Denies pain. Neuro: Level of Consciousness is awake, alert, obeys commands, Oriented to person, place, time, situation. Cardiovascular: Patient's skin is warm and dry. Respiratory: Airway is patent. GI: No signs and/or symptoms were reported involving the gastrointestinal system. : No signs and/or symptoms were reported regarding the genitourinary system. EENT: No signs and/or symptoms were reported regarding the EENT system. Derm: Rash noted that is itchy, on right quadriceps and left quadriceps. Musculoskeletal: No signs and/or symptoms reported regarding the musculoskeletal system. Vital Signs: 23:28 BP 108 / 63; Pulse 53; Resp 16; Temp 98.1; Pulse Ox 96% ; Weight 81.65 kg; rv ED Course: 23:15 Patient arrived in ED. am2 23:19 [facility] snw 23:19 Parker Farmer MD is Attending Physician. snw 23:25 Jason Sotelo, OM is Primary Nurse. rv 23:26 Triage completed. rv 23:31 Patient has correct armband on for positive identification. Bed in low position. Call rv light in reach. Side rails up X 1. Pulse ox on. NIBP on. 23:31 Patient placed in an exam room, on a stretcher, on pulse oximetry, Patient notified of rv wait time. 23:37 No provider procedures requiring assistance completed. Patient did not have IV access rv during this emergency room visit. Administered Medications: No medications were administered Outcome: 23:30 Discharge ordered by . snw 23:37 Discharged to home ambulatory. rv 23:37 Condition: good 23:37 Discharge instructions given to patient, Instructed on discharge instructions, follow up and referral plans. Demonstrated understanding of instructions, follow-up care. 23:51 Patient left the ED. rv Signatures: Beata Ramirez FNP-C WELDING SETTER-Csnw Keri Cohn am2 Jason Sotelo, RN RN rv
--- NOTE | 2018-07-23 23:30 | EDPHYS ---
Physician Documentation [facility] Name: Austin Mtz Age: 48 yrs Sex: Male : 1970 Arrival Date: 07/23/2018 Time: 23:15 Bed 27 Private MD: ED Physician Parker Farmer HPI: 07/23 23:53 This 48 yrs old Male presents to ER via Ambulatory with complaints of Rash. snw 23:53 The patient's rash thought to be caused by no new rashes, pt states there are lots of snw mosquitos out and they were biting him. The rash is located on the body diffusely. Onset: The symptoms/episode began/occurred suddenly. Severity of symptoms: At their worst the symptoms were very mild. Treatment given at home: getting out of the weather. It is unknown whether or not the patient has had similar symptoms in the past. The patient has been recently seen by a physician: Taking clindamycin, last dose for today taken in ED. Historical: - Allergies: 23:28 Codeine; rv 23:28 Haloperidol; rv - Home Meds: 23:28 None [Active]; rv - PMHx: 23:28 bells palsy; Bipolar disorder; Schizo-affective disorder; rv - PSHx: 23:28 None; rv - Immunization history:: Adult Immunizations up to date. - Social history:: Smoking status: Patient uses tobacco products, smokes one-half pack cigarettes per day. - Ebola Screening: : No symptoms or risks identified at this time. ROS: 23:53 Constitutional: Negative for fever, chills, and weight loss, Eyes: Negative for injury, snw pain, redness, and discharge, ENT: Negative for injury, pain, and discharge, Neck: Negative for injury, pain, and swelling, Cardiovascular: Negative for chest pain, palpitations, and edema, Respiratory: Negative for shortness of breath, cough, wheezing, and pleuritic chest pain, Abdomen/GI: Negative for abdominal pain, nausea, vomiting, diarrhea, and constipation, Back: Negative for injury and pain, : Negative for injury, bleeding, discharge, and swelling, MS/Extremity: Negative for injury and deformity, Neuro: Negative for headache, weakness, numbness, tingling, and seizure. 23:53 Skin: Positive for mosquito bites. Exam: 23:50 Constitutional: This is a well developed, well nourished patient who is awake, alert, snw and in no acute distress. Head/Face: Normocephalic, atraumatic. Eyes: Pupils equal round and reactive to light, extra-ocular motions intact. Lids and lashes normal. Conjunctiva and sclera are non-icteric and not injected. Cornea within normal limits. Periorbital areas with no swelling, redness, or edema. ENT: Nares patent. No nasal discharge, no septal abnormalities noted. Tympanic membranes are normal and external auditory canals are clear. Oropharynx with no redness, swelling, or masses, exudates, or evidence of obstruction, uvula midline. Mucous membranes moist. Neck: Trachea midline, no thyromegaly or masses palpated, and no cervical lymphadenopathy. Supple, full range of motion without nuchal rigidity, or vertebral point tenderness. No Meningismus. Chest/axilla: Normal chest wall appearance and motion. Nontender with no deformity. No lesions are appreciated. Cardiovascular: Regular rate and rhythm with a normal S1 and S2. No gallops, murmurs, or rubs. Normal PMI, no JVD. No pulse deficits. Respiratory: Lungs have equal breath sounds bilaterally, clear to auscultation and percussion. No rales, rhonchi or wheezes noted. No increased work of breathing, no retractions or nasal flaring. Abdomen/GI: Soft, non-tender, with normal bowel sounds. No distension or tympany. No guarding or rebound. No evidence of tenderness throughout. Back: No spinal tenderness. No costovertebral tenderness. Full range of motion. MS/ Extremity: Pulses equal, no cyanosis. Neurovascular intact. Full, normal range of motion. Neuro: Awake and alert, GCS 15, oriented to person, place, time, and situation. Cranial nerves II-XII grossly intact. Motor strength 5/5 in all extremities. Sensory grossly intact. Cerebellar exam normal. Normal gait. Psych: Awake, alert, with orientation to person, place and time. Behavior, mood, and affect are within normal limits. 23:50 Skin: Appearance: normal except for affected area, pt taking clindamycin for cellulitic area to right inner leg just above knee, area without edema or erythema, + small amount of ecchymosis around area, no new concerns. Vital Signs: 23:28 BP 108 / 63; Pulse 53; Resp 16; Temp 98.1; Pulse Ox 96% ; Weight 81.65 kg; rv MDM: 23:19 Patient medically screened. snw Administered Medications: No medications were administered Disposition: 07/24 00:43 Co-signature as Attending Physician, Parker Farmer MD. rn Disposition: 07/23/18 23:30 Discharged to Home. Impression: Insect bite (nonvenomous) of lower leg. - Condition is Stable. - Discharge Instructions: Insect Bite. - Medication Reconciliation Form, Thank You Letter, Antibiotic Education, Prescription Opioid Use form. - Follow up: Private Physician; When: As needed; Reason: Continuance of care. Signatures: Beata Ramirez, MODELING MANAGER-C MODELING MANAGER-Csnw Parker Farmer MD MD rn Vicente, Ronaldo, RN RN rv Corrections: (The following items were deleted from the chart) 07/23 23:51 23:30 07/23/2018 23:30 Discharged to Home. Impression: Insect bite (nonvenomous) of rv lower leg. Condition is Stable. Forms are Medication Reconciliation Form, Thank You Letter, Antibiotic Education, Prescription Opioid Use. Follow up: Private Physician; When: As needed; Reason: Continuance of care. snw
[2018-07-24 01:52] VITALS: BP 108/63; TEMP 98.1; O2SAT 96
== END 2018-07-23 23:51 | disposition home or self-care (01) ==
LOC: ER 23:14
DX: S80.861A Insect bite (nonvenomous), right lower leg, initial encounter (principal); F17.210 Nicotine dependence, cigarettes, uncomplicated; Z88.5 Allergy status to narcotic agent
CPT/HCPCS: 99283

== ENCOUNTER 2018-12-30 19:08 | Emergency (ER) | payer MEDICAID ==
--- NOTE | 2018-12-30 20:05 | EDPHYS ---
Physician Documentation [facility] Name: Austin Mtz Age: 48 yrs Sex: Male : 1970 Arrival Date: 12/30/2018 Time: 19:14 Bed 13 Private MD: ED Physician Polo Rothman HPI: 12/31 02:03 This 48 yrs old Male presents to ER via Ambulatory with complaints of Cough. tw4 02:03 The patient or guardian reports cough. Onset: The symptoms/episode began/occurred 4 tw4 month(s) ago. Severity of symptoms: At their worst the symptoms were mild, in the emergency department the symptoms are unchanged. Modifying factors: The symptoms are alleviated by nothing, the symptoms are aggravated by nothing. Associated signs and symptoms: The patient has no apparent associated signs or symptoms. The patient has not experienced similar symptoms in the past. Historical: - Allergies: 12/30 19:35 Codeine; lp1 19:35 Haloperidol; lp1 - Home Meds: 19:35 None [Active]; lp1 - PMHx: 19:35 bells palsy; Bipolar disorder; Schizo-affective disorder; lp1 - PSHx: 19:35 None; lp1 - Immunization history:: Adult Immunizations unknown. - Social history:: Smoking status: Patient uses tobacco products, smokes one pack cigarettes per day. - Ebola Screening: : No symptoms or risks identified at this time. ROS: 12/31 02:03 Constitutional: Negative for fever, chills, and weight loss, Eyes: Negative for injury, tw4 pain, redness, and discharge, Cardiovascular: Negative for chest pain, palpitations, and edema, Abdomen/GI: Negative for abdominal pain, nausea, vomiting, diarrhea, and constipation, Back: Negative for injury and pain, MS/Extremity: Negative for injury and deformity, Skin: Negative for injury, rash, and discoloration, Neuro: Negative for headache, weakness, numbness, tingling, and seizure. Respiratory: Positive for cough, Negative for dyspnea on exertion, hemoptysis, orthopnea, pleurisy, shortness of breath, sputum production, wheezing. Exam: 02:03 Constitutional: This is a well developed, well nourished patient who is awake, alert, tw4 and in no acute distress. Head/Face: Normocephalic, atraumatic. Chest/axilla: Normal chest wall appearance and motion. Nontender with no deformity. No lesions are appreciated. Cardiovascular: Regular rate and rhythm with a normal S1 and S2. No gallops, murmurs, or rubs. Normal PMI, no JVD. No pulse deficits. Respiratory: Lungs have equal breath sounds bilaterally, clear to auscultation and percussion. No rales, rhonchi or wheezes noted. No increased work of breathing, no retractions or nasal flaring. Abdomen/GI: Soft, non-tender, with normal bowel sounds. No distension or tympany. No guarding or rebound. No evidence of tenderness throughout. Back: No spinal tenderness. No costovertebral tenderness. Full range of motion. MS/ Extremity: Pulses equal, no cyanosis. Neurovascular intact. Full, normal range of motion. Neuro: Awake and alert, GCS 15, oriented to person, place, time, and situation. Cranial nerves II-XII grossly intact. Motor strength 5/5 in all extremities. Sensory grossly intact. Cerebellar exam normal. Normal gait. Vital Signs: 12/30 19:35 BP 133 / 83; Pulse 81; Resp 18; Temp 98.6(O); Pulse Ox 98% on R/A; Pain 0/10; lp1 MDM: 19:54 Patient medically screened. tw4 20:04 Data reviewed: vital signs, nurses notes. Medical screen evaluation completed. EMTALA tw4 emergency medical condition absent. Special discussion: I discussed with the patient/guardian in detail that at this point there is no indication for admission to the hospital. It is understood, however, that if the symptoms persist or worsen the patient needs to return immediately for re-evaluation. 12/31 02:03 Differential Diagnosis: Bronchitis Influenza Upper Respiratory Infection Sinusitis tw4 Pharyngitis Allergic Rhinitis Asthma Exacerbation Viral Syndrome Pneumonia. Counseling: I had a detailed discussion with the patient and/or guardian regarding: the historical points, exam findings, and any diagnostic results supporting the discharge/admit diagnosis. Administered Medications: No medications were administered Disposition: 12/30/18 20:05 Discharged to Home. Impression: Encounter for general adult medical examination without abnormal findings. - Condition is Stable. - Discharge Instructions: Medical Screening Exam. - Medication Reconciliation Form, Thank You Letter, Antibiotic Education, Prescription Opioid Use form. - Follow up: Private Physician; When: Upon discharge from the Emergency Department; Reason: Recheck today's complaints, Continuance of care. - Problem is new. - Symptoms have improved. Signatures: Chel Reinoso RN RN lp1 Virgilio Verdin RN RN jb4 Polo Rothman MD MD tw4 Corrections: (The following items were deleted from the chart) 12/30 20:12 20:05 12/30/2018 20:05 Discharged to Home. Impression: Encounter for general adult jb4 medical examination without abnormal findings. Condition is Stable. Forms are Medication Reconciliation Form, Thank You Letter, Antibiotic Education, Prescription Opioid Use. Follow up: Private Physician; When: Upon discharge from the Emergency Department; Reason: Recheck today's complaints, Continuance of care. Problem is new. Symptoms have improved. tw4
--- NOTE | 2018-12-30 20:05 | ER ---
Nurse's Notes [facility] Name: Austin Mtz Age: 48 yrs Sex: Male : 1970 Arrival Date: 12/30/2018 Time: 19:14 Bed 13 Private MD: Diagnosis: Encounter for general adult medical examination without abnormal findings Presentation: 12/30 19:34 Presenting complaint: Patient states: Sinus drainage on and off since about 4-5 months, lp1 dry cough. Transition of care: patient was not received from another setting of care. Onset of symptoms was December 30, 2018. Risk Assessment: Do you want to hurt yourself or someone else? Patient reports no desire to harm self or others. Initial Sepsis Screen: Does the patient meet any 2 criteria? No. Patient's initial sepsis screen is negative. Does the patient have a suspected source of infection? No. Patient's initial sepsis screen is negative. Care prior to arrival: None. 19:34 Method Of Arrival: Ambulatory lp1 19:34 Acuity: FREDIS 5 lp1 Historical: - Allergies: 19:35 Codeine; lp1 19:35 Haloperidol; lp1 - Home Meds: 19:35 None [Active]; lp1 - PMHx: 19:35 bells palsy; Bipolar disorder; Schizo-affective disorder; lp1 - PSHx: 19:35 None; lp1 - Immunization history:: Adult Immunizations unknown. - Social history:: Smoking status: Patient uses tobacco products, smokes one pack cigarettes per day. - Ebola Screening: : No symptoms or risks identified at this time. Screenin:36 Abuse screen: Denies threats or abuse. Denies injuries from another. Nutritional lp1 screening: No deficits noted. Tuberculosis screening: No symptoms or risk factors identified. Fall Risk None identified. Assessment: 19:45 General: Appears in no apparent distress. comfortable, Behavior is calm, cooperative, jb4 appropriate for age. Pain: Denies pain. Neuro: Level of Consciousness is awake, alert, obeys commands, Oriented to person, place, time, situation. Cardiovascular: Patient's skin is warm and dry. Respiratory: Reports cough that is productive, Airway is patent Respiratory effort is even, unlabored, Respiratory pattern is regular, symmetrical, Breath sounds are clear bilaterally. GI: No signs and/or symptoms were reported involving the gastrointestinal system. : No signs and/or symptoms were reported regarding the genitourinary system. EENT: No signs and/or symptoms were reported regarding the EENT system. Derm: Skin is intact, Skin is pink, warm \T\ dry. Musculoskeletal: Circulation, motion, and sensation intact. Range of motion: intact in all extremities. Vital Signs: 19:35 BP 133 / 83; Pulse 81; Resp 18; Temp 98.6(O); Pulse Ox 98% on R/A; Pain 0/10; lp1 ED Course: 19:14 Patient arrived in ED. cl3 19:35 Triage completed. lp1 19:35 Arm band placed on right wrist. lp1 19:45 Patient has correct armband on for positive identification. Bed in low position. Call jb4 light in reach. Side rails up X 1. 19:53 Virgilio Verdin, RN is Primary Nurse. jb4 19:54 Polo Rothman MD is Attending Physician. tw4 20:11 No provider procedures requiring assistance completed. Patient did not have IV access jb4 during this emergency room visit. Administered Medications: No medications were administered Outcome: 20:05 Discharge ordered by . tw4 20:11 Discharged to home ambulatory. jb4 20:11 Condition: stable 20:11 Following a medical screening exam, the patient was provided information regarding alternative care sites and resources available per registration personnel. 20:12 Patient left the ED. jb4 Signatures: Chel Reinoso RN RN lp1 Virgilio Verdin RN RN jb4 Polo Rothman MD MD tw4 Leti Bishop cl3
[2018-12-30 20:21] VITALS: BP 133/83; TEMP 98.6; O2SAT 98
== END 2018-12-30 20:12 | disposition home or self-care (01) ==
LOC: ER 19:08
DX: R05 Cough (principal); Z00.00 Encounter for general adult medical examination without abnormal findings; Z88.6 Allergy status to analgesic agent; Z88.8 Allergy status to other drugs, medicaments and biological substances
CPT/HCPCS: 99281

== ENCOUNTER 2019-01-18 19:47 | Emergency (ER) | payer MEDICAID ==
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
--- NOTE | 2019-01-18 20:50 | EDPHYS ---
Physician Documentation [facility] Name: Austin Mtz Age: 48 yrs Sex: Male : 1970 Arrival Date: 01/18/2019 Time: 19:48 Bed 5 Private MD: ED Physician Polo Rothman HPI: 01/19 00:11 This 48 yrs old Male presents to ER via Ambulatory with complaints of tw4 Constipation. 00:11 The patient presents to the emergency department with pain in the rectal area, that is tw4 mild. Onset: The symptoms/episode began/occurred today. Context: the patient has no known special context relating to the rectal area complaint(s). Modifying factors: The symptoms are alleviated by nothing, The symptoms are aggravated by nothing. The patient has not experienced similar symptoms in the past. Historical: - Allergies: 01/18 19:59 Codeine; ca1 19:59 Haloperidol; ca1 - PMHx: 19:59 bells palsy; Bipolar disorder; Schizo-affective disorder; ca1 - PSHx: 19:59 None; ca1 - Immunization history:: Adult Immunizations not up to date, Flu vaccine is not up to date. - Social history:: Smoking status: Patient uses tobacco products, smokes one-half pack cigarettes per day, Patient uses street drugs, marijuana. - Ebola Screening: : Patient negative for fever greater than or equal to 101.5 degrees Fahrenheit, and additional compatible Ebola Virus Disease symptoms Patient denies exposure to infectious person Patient denies travel to an Ebola-affected area in the 21 days before illness onset No symptoms or risks identified at this time. ROS: 01/19 00:11 Constitutional: Negative for fever, chills, and weight loss, Eyes: Negative for injury, tw4 pain, redness, and discharge, Cardiovascular: Negative for chest pain, palpitations, and edema, Respiratory: Negative for shortness of breath, cough, wheezing, and pleuritic chest pain, MS/Extremity: Negative for injury and deformity, Skin: Negative for injury, rash, and discoloration, Neuro: Negative for headache, weakness, numbness, tingling, and seizure. Abdomen/GI: Positive for constipation, Negative for abdominal pain, nausea and vomiting, vomiting, abdominal distension, anorexia, dysphagia, hematemesis, black/tarry stool, rectal pain, rectal bleeding. Exam: 00:11 Constitutional: This is a well developed, well nourished patient who is awake, alert, tw4 and in no acute distress. Head/Face: Normocephalic, atraumatic. Chest/axilla: Normal chest wall appearance and motion. Nontender with no deformity. No lesions are appreciated. Cardiovascular: Regular rate and rhythm with a normal S1 and S2. No gallops, murmurs, or rubs. Normal PMI, no JVD. No pulse deficits. Respiratory: Lungs have equal breath sounds bilaterally, clear to auscultation and percussion. No rales, rhonchi or wheezes noted. No increased work of breathing, no retractions or nasal flaring. Abdomen/GI: Soft, non-tender, with normal bowel sounds. No distension or tympany. No guarding or rebound. No evidence of tenderness throughout. Back: No spinal tenderness. No costovertebral tenderness. Full range of motion. MS/ Extremity: Pulses equal, no cyanosis. Neurovascular intact. Full, normal range of motion. Neuro: Awake and alert, GCS 15, oriented to person, place, time, and situation. Cranial nerves II-XII grossly intact. Motor strength 5/5 in all extremities. Sensory grossly intact. Cerebellar exam normal. Normal gait. Vital Signs: 01/18 19:59 BP 110 / 73; Pulse 63; Resp 17 S; Temp 97.8(O); Pulse Ox 97% on R/A; Weight 99.79 kg ca1 (R); Height 5 ft. 11 in. (180.34 cm) (R); Pain 2/10; 19:59 Body Mass Index 30.68 (99.79 kg, 180.34 cm) ca1 MDM: 20:25 Patient medically screened. tw4 01/19 00:16 Differential diagnosis: CONSITPATION, HEMORRHOIDS. Data reviewed: vital signs, nurses tw4 notes. Test interpretation: by ED physician or midlevel provider: not applicable. Counseling: I had a detailed discussion with the patient and/or guardian regarding: the historical points, exam findings, and any diagnostic results supporting the discharge/admit diagnosis. Administered Medications: 01/18 21:13 Drug: Lactulose 30 grams Volume: 45 ml; Route: PO; jb4 21:13 Follow up: Response: Medication administered at discharge. jb4 Disposition: 01/18/19 20:49 Discharged to Home. Impression: Constipation, unspecified. - Condition is Stable. - Discharge Instructions: Constipation, Adult, Salj-np-Yelk. - Prescriptions for Colace 100 mg Oral Tablet - take 1 tablet by ORAL route every 12 hours; 14 tablet. Miralax 17 gram/dose Oral - take 1 packet by ORAL route once daily dilute powder in 8 ounces of water or juice; 1 packet. - Medication Reconciliation Form, Thank You Letter, Antibiotic Education, Prescription Opioid Use form. - Follow up: Private Physician; When: Upon discharge from the Emergency Department; Reason: Recheck today's complaints, Continuance of care. - Problem is new. - Symptoms have improved. Signatures: Virgilio Verdin RN RN jb4 Polo Rothman MD MD tw4 Miguelina Marques RN RN ca1 Corrections: (The following items were deleted from the chart) 21:15 20:49 01/18/2019 20:49 Discharged to Home. Impression: Constipation, unspecified. jb4 Condition is Stable. Forms are Medication Reconciliation Form, Thank You Letter, Antibiotic Education, Prescription Opioid Use. Follow up: Private Physician; When: Upon discharge from the Emergency Department; Reason: Recheck today's complaints, Continuance of care. Problem is new. Symptoms have improved. tw4
[2019-01-18] MEDS ORDERED: LACTULOSE 20 GM/30 ML UCUP ONE (21:08)
[2019-01-18 23:58] VITALS: BP 110/73; TEMP 97.8; O2SAT 97
== END 2019-01-18 21:15 | disposition home or self-care (01) ==
LOC: ER 19:47
DX: K59.00 Constipation, unspecified (principal); F17.210 Nicotine dependence, cigarettes, uncomplicated; F25.0 Schizoaffective disorder, bipolar type; Z88.5 Allergy status to narcotic agent
CPT/HCPCS: 99282

== ENCOUNTER 2019-01-19 16:32 | Emergency (ER) | payer MEDICAID ==
--- NOTE | 2019-01-19 17:53 | EDPHYS ---
Physician Documentation [facility] Name: Austin Mtz Age: 48 yrs Sex: Male : 1970 Arrival Date: 01/19/2019 Time: 16:34 Bed 14 Private MD: HAL Physician Geraldo Almaraz HPI: 01/19 17:49 This 48 yrs old Male presents to ER via Ambulatory with complaints of Back elvira Pain. 17:49 The patient presents with pain that is chronic, with no known mechanism of injury. The elvira symptoms are located in the low back. Onset: The symptoms/episode began/occurred 3 day(s) ago. Historical: - Allergies: 16:42 Codeine; aj1 16:42 Haloperidol; aj1 - Home Meds: 16:42 None [Active]; aj1 - PMHx: 16:42 bells palsy; Bipolar disorder; Schizo-affective disorder; chronic back pain; aj1 - Immunization history:: Flu vaccine is up to date. - Social history:: Smoking status: Patient uses tobacco products, smokes one-half pack cigarettes per day. - Ebola Screening: : Patient denies travel to an Ebola-affected area in the 21 days before illness onset. ROS: 17:49 Constitutional: Negative for fever, chills, and weight loss, Eyes: Negative for injury, elvira pain, redness, and discharge, ENT: Negative for injury, pain, and discharge, Neck: Negative for injury, pain, and swelling, Cardiovascular: Negative for chest pain, palpitations, and edema, Respiratory: Negative for shortness of breath, cough, wheezing, and pleuritic chest pain, Abdomen/GI: Negative for abdominal pain, nausea, vomiting, diarrhea, and constipation, : Negative for injury, bleeding, discharge, and swelling, MS/Extremity: Negative for injury and deformity, Skin: Negative for injury, rash, and discoloration, Neuro: Negative for headache, weakness, numbness, tingling, and seizure, Psych: Negative for depression, anxiety, suicide ideation, homicidal ideation, and hallucinations, Allergy/Immunology: Negative for hives, rash, and allergies, Endocrine: Negative for neck swelling, polydipsia, polyuria, polyphagia, and marked weight changes, Hematologic/Lymphatic: Negative for swollen nodes, abnormal bleeding, and unusual bruising. 17:49 Back: Positive for pain with movement. Exam: 17:49 Constitutional: This is a well developed, well nourished patient who is awake, alert, elvira and in no acute distress. Head/Face: Normocephalic, atraumatic. Eyes: Pupils equal round and reactive to light, extra-ocular motions intact. Lids and lashes normal. Conjunctiva and sclera are non-icteric and not injected. Cornea within normal limits. Periorbital areas with no swelling, redness, or edema. ENT: Nares patent. No nasal discharge, no septal abnormalities noted. Tympanic membranes are normal and external auditory canals are clear. Oropharynx with no redness, swelling, or masses, exudates, or evidence of obstruction, uvula midline. Mucous membranes moist. Neck: Trachea midline, no thyromegaly or masses palpated, and no cervical lymphadenopathy. Supple, full range of motion without nuchal rigidity, or vertebral point tenderness. No Meningismus. Chest/axilla: Normal chest wall appearance and motion. Nontender with no deformity. No lesions are appreciated. Cardiovascular: Regular rate and rhythm with a normal S1 and S2. No gallops, murmurs, or rubs. Normal PMI, no JVD. No pulse deficits. Respiratory: Lungs have equal breath sounds bilaterally, clear to auscultation and percussion. No rales, rhonchi or wheezes noted. No increased work of breathing, no retractions or nasal flaring. Abdomen/GI: Soft, non-tender, with normal bowel sounds. No distension or tympany. No guarding or rebound. No evidence of tenderness throughout. Back: No spinal tenderness. No costovertebral tenderness. Full range of motion. Male : Normal genitalia with no discharge or lesions. Skin: Warm, dry with normal turgor. Normal color with no rashes, no lesions, and no evidence of cellulitis. MS/ Extremity: Pulses equal, no cyanosis. Neurovascular intact. Full, normal range of motion. Neuro: Awake and alert, GCS 15, oriented to person, place, time, and situation. Cranial nerves II-XII grossly intact. Motor strength 5/5 in all extremities. Sensory grossly intact. Cerebellar exam normal. Normal gait. Psych: Awake, alert, with orientation to person, place and time. Behavior, mood, and affect are within normal limits. Vital Signs: 16:42 BP 132 / 88; Pulse 81; Resp 18; Temp 97.0; Pulse Ox 97% on R/A; aj1 17:30 BP 118 / 73; Pulse 71; Resp 16 S; Pulse Ox 97% on R/A; aa5 MDM: 16:45 Patient medically screened. elvira Administered Medications: No medications were administered Disposition: 01/19/19 17:53 Discharged to Home. Impression: Constipation, Low back pain, Bipolar disorder. - Condition is Stable. - Discharge Instructions: Back Pain, Adult, Chronic Back Pain, Constipation, Adult, Musculoskeletal Pain, Constipation, Adult, [id number], Back Pain, Adult, [id number]. - Prescriptions for Colace 100 mg Oral Tablet - take 1 tablet by ORAL route every 12 hours; 14 tablet. Miralax 17 gram/dose Oral - take 1 packet by ORAL route once daily dilute powder in 8 ounces of water or juice; 20 packet. - Medication Reconciliation Form, Thank You Letter, Antibiotic Education, Prescription Opioid Use form. - Follow up: Private Physician; When: 2 - 3 days; Reason: Recheck today's complaints, Continuance of care, Re-evaluation by your physician. - Problem is new. - Symptoms have improved. Signatures: Nerissa Page RN RN aj1 Geraldo Almaraz MD MD cha Calderon, Audri RN RN aa5 Corrections: (The following items were deleted from the chart) 18:37 17:53 01/19/2019 17:53 Discharged to Home. Impression: Constipation; Low back pain; aa5 Bipolar disorder. Condition is Stable. Forms are Medication Reconciliation Form, Thank You Letter, Antibiotic Education, Prescription Opioid Use. Follow up: Private Physician; When: 2 - 3 days; Reason: Recheck today's complaints, Continuance of care, Re-evaluation by your physician. Problem is new. Symptoms have improved. elvira
--- NOTE | 2019-01-19 17:53 | ER ---
Nurse's Notes [facility] Name: Austin Mtz Age: 48 yrs Sex: Male : 1970 Arrival Date: 01/19/2019 Time: 16:34 Bed 14 Private MD: Diagnosis: Constipation;Low back pain;Bipolar disorder Presentation: 01/19 16:40 Presenting complaint: Patient states: Right lower back pain that started less than an aj1 hour ago. Denies urinary symptoms. Denies any recent injury. Transition of care: patient was not received from another setting of care. Onset of symptoms was January 19, 2019. Risk Assessment: Do you want to hurt yourself or someone else? Patient reports no desire to harm self or others. Initial Sepsis Screen: Does the patient meet any 2 criteria? No. Patient's initial sepsis screen is negative. Does the patient have a suspected source of infection? No. Patient's initial sepsis screen is negative. Care prior to arrival: None. 16:40 Method Of Arrival: Ambulatory aj 16:40 Acuity: FREDIS 4 aj1 Triage Assessment: 16:42 General: Appears in no apparent distress. comfortable, Behavior is calm, cooperative, aj1 appropriate for age. Pain: Complains of pain in back Pain currently is 2 out of 10 on a pain scale. Neuro: Level of Consciousness is awake, alert, obeys commands. Cardiovascular: Patient's skin is warm and dry. Respiratory: Airway is patent Respiratory effort is even, unlabored, Respiratory pattern is regular, symmetrical. Musculoskeletal: Range of motion: intact in all extremities. Historical: - Allergies: 16:42 Codeine; aj1 16:42 Haloperidol; aj1 - Home Meds: 16:42 None [Active]; aj1 - PMHx: 16:42 bells palsy; Bipolar disorder; Schizo-affective disorder; chronic back pain; aj1 - Immunization history:: Flu vaccine is up to date. - Social history:: Smoking status: Patient uses tobacco products, smokes one-half pack cigarettes per day. - Ebola Screening: : Patient denies travel to an Ebola-affected area in the 21 days before illness onset. Screenin:00 Abuse screen: Denies threats or abuse. Nutritional screening: No deficits noted. aa5 Tuberculosis screening: No symptoms or risk factors identified. Fall Risk None identified. Assessment: 17:00 General: Appears comfortable, Behavior is calm, cooperative. Pain: Complains of pain in aa5 right low back Pain does not radiate. Pain currently is 5 out of 10 on a pain scale. Quality of pain is described as sharp, Pain began Pt states "it's been going on since I started being stressed out". Pt states "people just stress me out sometimes". Pt denies anxiety. Is continuous. Neuro: Level of Consciousness is awake, alert, obeys commands, Oriented to person, place, time, situation. Cardiovascular: Patient's skin is warm and dry. Respiratory: Airway is patent Respiratory effort is even, unlabored, Respiratory pattern is regular, symmetrical. GI: Abdomen is round non-distended, Bowel sounds present X 4 quads. Abd is soft and non tender X 4 quads. Reports constipation, Patient currently denies nausea, vomiting. : Denies burning with urination, inability to void, incontinence, urinary frequency, urgency. EENT: No signs and/or symptoms were reported regarding the EENT system. Derm: Skin is pink, warm \\T\\ dry. Musculoskeletal: Range of motion: intact in all extremities. 18:36 Reassessment: Patient is alert, oriented x 3, equal unlabored respirations, skin aa5 warm/dry/pink. Vital Signs: 16:42 BP 132 / 88; Pulse 81; Resp 18; Temp 97.0; Pulse Ox 97% on R/A; aj1 17:30 BP 118 / 73; Pulse 71; Resp 16 S; Pulse Ox 97% on R/A; aa5 ED Course: 16:34 Patient arrived in ED. as 16:41 Triage completed. aj1 16:42 Arm band placed on Patient placed in an exam room. aj1 16:45 Geraldo Almaraz MD is Attending Physician. elvira 17:00 Patient has correct armband on for positive identification. Bed in low position. Call aa5 light in reach. Side rails up X 1. 17:30 Rylee Jackman, [place] is Primary Nurse. aa5 18:30 No provider procedures requiring assistance completed. Patient did not have IV access aa5 during this emergency room visit. Administered Medications: No medications were administered Outcome: 17:53 Discharge ordered by . elvira 18:36 Discharged to home ambulatory. aa5 18:36 Condition: good 18:36 Discharge instructions given to patient, Instructed on discharge instructions, follow up and referral plans. medication usage, Demonstrated understanding of instructions, follow-up care, medications, Prescriptions given X 2. 18:37 Patient left the ED. aa5 Signatures: Nerissa Page, RN RN aj1 Geraldo Almaraz MD MD cha Martinez, Amelia as Calderon, Audri, [place] RN aa5
[2019-01-19 18:48] VITALS: BP 132/88; TEMP 97; O2SAT 97
== END 2019-01-19 18:37 | disposition home or self-care (01) ==
LOC: ER 16:32
DX: M54.5 Low back pain (principal); K59.00 Constipation, unspecified; F31.9 Bipolar disorder, unspecified; Z88.6 Allergy status to analgesic agent; Z88.8 Allergy status to other drugs, medicaments and biological substances; F17.210 Nicotine dependence, cigarettes, uncomplicated
CPT/HCPCS: 99282

== ENCOUNTER 2019-06-04 03:32 | Emergency (ER) | payer MEDICAID ==
--- NOTE | 2019-06-04 04:02 | ER ---
Nurse's Notes [facility] Name: Austin Mtz Age: 49 yrs Sex: Male : 1970 Arrival Date: 06/04/2019 Time: 03:37 Bed 14 Private MD: Diagnosis: Encounter for general adult medical examination Presentation: 06/03 03:53 Chief complaint: Patient states: i am homeless and purnima been stress out lately, i wanted mg2 to be admitted in a mental facility so i can get proper care and medications. i don't have any suicidal ideation. Coronavirus screen: Proceed with normal triage. Patient denies a cough. Patient denies shortness of breath or difficulty breathing. Patient denies measured and/or subjective temperature greater than 100.4F prior to today's visit. Patient denies travel on a cruise ship or to a country the [facility] currently lists as an affected area. Patient denies contact with known and/or suspected case of COVID-19. Ebola Screen: No symptoms or risks identified at this time. Initial Sepsis Screen: Does the patient meet any 2 criteria? No. Patient's initial sepsis screen is negative. Does the patient have a suspected source of infection? No. Patient's initial sepsis screen is negative. Risk Assessment: Do you want to hurt yourself or someone else? Patient reports no desire to harm self or others. Onset of symptoms was May 2019. 03:53 Method Of Arrival: Ambulatory mg2 03:53 Acuity: FREDIS 4 mg2 Historical: - Allergies: 03:57 Codeine; mg2 03:57 Haloperidol; mg2 - PMHx: 03:57 bells palsy; Bipolar disorder; chronic back pain; Schizo-affective disorder; mg2 - PSHx: 03:57 Ear Tubes; mg2 - Immunization history:: Flu vaccine is not up to date. - Social history:: Smoking status: Patient/guardian denies using tobacco, Patient uses street drugs, marijuana, Patient/guardian denies using alcohol. Screenin:02 Abuse screen: Denies threats or abuse. Denies injuries from another. Nutritional mg2 screening: No deficits noted. Tuberculosis screening: No symptoms or risk factors identified. Fall Risk None identified. Assessment: 04:01 General: Appears in no apparent distress. comfortable, Behavior is calm. Pain: Denies mg2 pain. Neuro: Level of Consciousness is awake, alert, obeys commands, Oriented to person, place, time, situation. Cardiovascular: Capillary refill < 3 seconds Patient's skin is warm and dry. Respiratory: Airway is patent Respiratory effort is even, unlabored, Respiratory pattern is regular, symmetrical. GI: No signs and/or symptoms were reported involving the gastrointestinal system. : No signs and/or symptoms were reported regarding the genitourinary system. EENT: No signs and/or symptoms were reported regarding the EENT system. Derm: Skin is intact, is healthy with good turgor, Skin is pink, warm \T\ dry. normal. Musculoskeletal: Circulation, motion, and sensation intact. Capillary refill < 3 seconds. Vital Signs: 03:53 BP 106 / 80; Pulse 81; Resp 18; Temp 98; Pulse Ox 100% on R/A; mg2 ED Course: 03:37 Patient arrived in ED. ag3 03:43 Polo Rothman MD is Attending Physician. tw4 03:56 Triage completed. mg2 03:56 Arm band placed on. mg2 04:01 Antony Fiore, RN is Primary Nurse. mg2 04:02 Patient has correct armband on for positive identification. mg2 04:02 No provider procedures requiring assistance completed. Patient did not have IV access mg2 during this emergency room visit. Administered Medications: No medications were administered Outcome: 04:01 Discharge ordered by . tw4 04:02 Medical screen evaluation completed per provider. mg2 04:02 Condition: stable 04:02 Discharge instructions given to patient, Instructed on discharge instructions, Demonstrated understanding of instructions. 04:08 Patient left the ED. mg2 Signatures: Polo Rothman MD MD tw4 Antony Fiore, RN RN mg2 Kellie Cuellar ag3
--- NOTE | 2019-06-04 04:02 | EDPHYS ---
Physician Documentation [facility] Name: Austin Mtz Age: 49 yrs Sex: Male : 1970 Arrival Date: 06/04/2019 Time: 03:37 Bed 14 Private MD: ED Physician Polo Rothman HPI: 06/03 04:48 This 49 yrs old Male presents to ER via Ambulatory with complaints of Back tw4 Pain. 04:48 The patient presents to the emergency department with anxiety, over a relationship. tw4 Onset: The symptoms/episode began/occurred today. Associated signs and symptoms: The patient has no apparent associated signs or symptoms, Pertinent positives; anxiety, Pertinent negatives: hallucinations, homicidal ideation, paranoia, suicide ideation. Severity of symptoms: At their worst the symptoms were mild in the emergency department the symptoms are unchanged. The patient has not experienced similar symptoms in the past. Historical: - Allergies: 03:57 Codeine; mg2 03:57 Haloperidol; mg2 - PMHx: 03:57 bells palsy; Bipolar disorder; chronic back pain; Schizo-affective disorder; mg2 - PSHx: 03:57 Ear Tubes; mg2 - Immunization history:: Flu vaccine is not up to date. - Social history:: Smoking status: Patient/guardian denies using tobacco, Patient uses street drugs, marijuana, Patient/guardian denies using alcohol. ROS: 04:48 Constitutional: Negative for fever, chills, and weight loss, Eyes: Negative for injury, tw4 pain, redness, and discharge, Cardiovascular: Negative for chest pain, palpitations, and edema, Respiratory: Negative for shortness of breath, cough, wheezing, and pleuritic chest pain, Abdomen/GI: Negative for abdominal pain, nausea, vomiting, diarrhea, and constipation, Back: Negative for injury and pain, MS/Extremity: Negative for injury and deformity, Skin: Negative for injury, rash, and discoloration, Neuro: Negative for headache, weakness, numbness, tingling, and seizure. 04:48 Neuro: 04:48 Psych: Positive for anxiety, Negative for homicidal ideation, suicide gesture, suicidal ideation. Exam: 04:48 Constitutional: This is a well developed, well nourished patient who is awake, alert, tw4 and in no acute distress. Head/Face: Normocephalic, atraumatic. Chest/axilla: Normal chest wall appearance and motion. Nontender with no deformity. No lesions are appreciated. Cardiovascular: Regular rate and rhythm with a normal S1 and S2. No gallops, murmurs, or rubs. Normal PMI, no JVD. No pulse deficits. Respiratory: Lungs have equal breath sounds bilaterally, clear to auscultation and percussion. No rales, rhonchi or wheezes noted. No increased work of breathing, no retractions or nasal flaring. Abdomen/GI: Soft, non-tender, with normal bowel sounds. No distension or tympany. No guarding or rebound. No evidence of tenderness throughout. MS/ Extremity: Pulses equal, no cyanosis. Neurovascular intact. Full, normal range of motion. Neuro: Awake and alert, GCS 15, oriented to person, place, time, and situation. Cranial nerves II-XII grossly intact. Motor strength 5/5 in all extremities. Sensory grossly intact. Cerebellar exam normal. Normal gait. 04:48 Psych: Behavior/mood is cooperative, anxious, Affect is animated, Oriented to person, place, time, Patient has no thoughts/intents to harm self or others. Judgement / Insight is normal. Vital Signs: 03:53 BP 106 / 80; Pulse 81; Resp 18; Temp 98; Pulse Ox 100% on R/A; mg2 MDM: 03:43 Patient medically screened. tw4 03:59 Data reviewed: vital signs, nurses notes. Medical screen evaluation completed. EMTALA tw4 emergency medical condition absent. Special discussion: I discussed with the patient/guardian in detail that at this point there is no indication for admission to the hospital. It is understood, however, that if the symptoms persist or worsen the patient needs to return immediately for re-evaluation. 04:48 Differential diagnosis: drug withdrawal. acute psychotic break. Data interpreted: Pulse tw4 oximetry:. Counseling: I had a detailed discussion with the patient and/or guardian regarding: the historical points, exam findings, and any diagnostic results supporting the discharge/admit diagnosis. Administered Medications: No medications were administered Disposition: 04:01 [facility]. tw4 Disposition: 06/04/19 04:01 Discharged to Home. Impression: Encounter for general adult medical examination. - Condition is Stable. - Medication Reconciliation Form, Thank You Letter, Antibiotic Education, Prescription Opioid Use form. - Follow up: Private Physician; When: Upon discharge from the Emergency Department; Reason: Recheck today's complaints, Continuance of care, Re-evaluation by your physician. - Problem is an ongoing problem. - Symptoms are unchanged. Signatures: Polo Rothman MD MD tw4 Antony Fiore RN RN mg2 Corrections: (The following items were deleted from the chart) 04:08 04:01 06/04/2019 04:01 Discharged to Home. Impression: Encounter for general adult mg2 medical examination. Condition is Stable. Forms are Medication Reconciliation Form, Thank You Letter, Antibiotic Education, Prescription Opioid Use. Follow up: Private Physician; When: Upon discharge from the Emergency Department; Reason: Recheck today's complaints, Continuance of care, Re-evaluation by your physician. Problem is an ongoing problem. Symptoms are unchanged. tw4
[2019-06-04 04:15] VITALS: BP 106/80; TEMP 98; O2SAT 100
== END 2019-06-04 04:08 | disposition home or self-care (01) ==
LOC: ER 03:32
DX: F41.9 Anxiety disorder, unspecified (principal); Z88.5 Allergy status to narcotic agent
CPT/HCPCS: 99281

== ENCOUNTER 2020-01-11 00:38 | Emergency (ER) | payer MEDICAID ==
--- NOTE | 2020-01-11 01:07 | EDPHYS ---
Physician Documentation [facility] Name: Austin Mtz Age: 49 yrs Sex: Male : 1970 Arrival Date: 01/11/2020 Time: 00:40 Bed 5 Private MD: ED Physician Marylin Posada HPI: 01/10 01:04 This 49 yrs old Male presents to ER via Ambulatory with complaints of Feet ma2 abrasions. 01:04 The patient presents with an abrasion. Onset: The symptoms/episode began/occurred ma2 gradually, 1 week(s) ago. Associated signs and symptoms: Pertinent negatives: nausea, swelling, tingling. Severity of symptoms: At their worst the symptoms were moderate, in the emergency department the symptoms are unchanged. The patient has not experienced similar symptoms in the past. Historical: - Allergies: 00:42 Codeine; sg 00:42 Haloperidol; sg - PMHx: 00:42 bells palsy; Bipolar disorder; chronic back pain; Schizo-affective disorder; sg - PSHx: 00:42 Ear Tubes; sg - Immunization history:: Adult Immunizations not up to date. - Social history:: Smoking status: Patient reports the use of cigarette tobacco products, Patient uses alcohol. - Family history:: not pertinent. ROS: 01:04 MS/extremity: Positive for abrasion, pain, Negative for decreased range of motion, ma2 laceration, swelling. 01:04 Constitutional: Negative for fever, chills, and weight loss. 01:04 All other systems are negative. Exam: 01:04 Constitutional: This is a well developed, well nourished patient who is awake, alert, ma2 and in no acute distress. Respiratory: Lungs have equal breath sounds bilaterally, clear to auscultation and percussion. No rales, rhonchi or wheezes noted. No increased work of breathing, no retractions or nasal flaring. Abdomen/GI: Soft, non-tender, with normal bowel sounds. No distension or tympany. No guarding or rebound. No evidence of tenderness throughout. Back: No spinal tenderness. No costovertebral tenderness. Full range of motion. Skin: Warm, dry with normal turgor. Normal color with no rashes, no lesions, and no evidence of cellulitis. MS/ Extremity: area of redness 1x1 cm left sole, no swelling or fluctuence no crepts Pulses equal, no cyanosis. Neurovascular intact. Full, normal range of motion. Neuro: Awake and alert, GCS 15, oriented to person, place, time, and situation. Cranial nerves II-XII grossly intact. Motor strength 5/5 in all extremities. Sensory grossly intact. Cerebellar exam normal. Normal gait. Vital Signs: 00:56 BP 127 / 91; Pulse 69; Resp 16; Temp 98.3; Pulse Ox 96% ; ll2 01:09 BP 127 / 91; Pulse 69; Resp 16; Temp 98.3; Pulse Ox 96% on R/A; ll2 MDM: 00:49 Patient medically screened. ma2 01:04 Differential diagnosis: sprain, gout, cellulitis. Data reviewed: vital signs, nurses ma2 notes. Counseling: I had a detailed discussion with the patient and/or guardian regarding: the historical points, exam findings, and any diagnostic results supporting the discharge/admit diagnosis, the presence of at least one elevated blood pressure reading (>120/80) during this emergency department visit, the need for outpatient follow up. Response to treatment: the patient's symptoms have mildly improved after treatment. Administered Medications: No medications were administered Disposition: 01/11/20 01:06 Discharged to Home. Impression: Cellulitis and acute lymphangitis of other parts of limb - left foot . - Condition is Stable. - Discharge Instructions: Cellulitis, Adult. - Prescriptions for Bactrim DS 800- 160 mg Oral Tablet - take 1 tablet by ORAL route every 12 hours for 3 days; 6 tablet. - Medication Reconciliation Form, Thank You Letter, Antibiotic Education, Prescription Opioid Use form. - Follow up: Private Physician; When: Tomorrow; Reason: Continuance of care. Signatures: Justus Glass RN RN Marylin Posada MD MD ma2 Deborah Ramos RN RN ll2 Corrections: (The following items were deleted from the chart) 01:18 01:06 01/11/2020 01:06 Discharged to Home. Impression: Cellulitis and acute ll2 lymphangitis of other parts of limb - left foot . Condition is Stable. Forms are Medication Reconciliation Form, Thank You Letter, Antibiotic Education, Prescription Opioid Use. Follow up: Private Physician; When: Tomorrow; Reason: Continuance of care. ma2
--- NOTE | 2020-01-11 01:07 | ER ---
Nurse's Notes [facility] Name: Austin tMz Age: 49 yrs Sex: Male : 1970 Arrival Date: 01/11/2020 Time: 00:40 Bed 5 Private MD: Diagnosis: Cellulitis and acute lymphangitis of other parts of limb-left foot Presentation: 01/10 00:56 Chief complaint: Patient states: he is homeless and stepped on a staple with his lt ll2 foot, and has an old wound on the right foot that is having more pain. states he has a PMHX of bipolar/schizophrenia, unsure about last tetanus vaccine, only allergies are codeine, takes no meds on a daily basis. smokes marajuana for his anxiety. Coronavirus screen: Client denies travel out of the [place] in the last 14 days. At this time, the client does not indicate any symptoms associated with coronavirus-19. Ebola Screen: Patient negative for fever greater than or equal to 101.5 degrees Fahrenheit, and additional compatible Ebola Virus Disease symptoms. Initial Sepsis Screen: Does the patient meet any 2 criteria? No. Patient's initial sepsis screen is negative. Does the patient have a suspected source of infection? No. Patient's initial sepsis screen is negative. Risk Assessment: Do you want to hurt yourself or someone else? Patient reports no desire to harm self or others. Onset of symptoms is unknown. 00:56 Method Of Arrival: Ambulatory ll2 00:56 Acuity: FREDIS 4 ll2 Historical: - Allergies: 00:42 Codeine; sg 00:42 Haloperidol; sg - PMHx: 00:42 bells palsy; Bipolar disorder; chronic back pain; Schizo-affective disorder; sg - PSHx: 00:42 Ear Tubes; sg - Immunization history:: Adult Immunizations not up to date. - Social history:: Smoking status: Patient reports the use of cigarette tobacco products, Patient uses alcohol. - Family history:: not pertinent. Screenin:10 Abuse screen: Denies threats or abuse. Nutritional screening: No deficits noted. ll2 Tuberculosis screening: No symptoms or risk factors identified. Fall Risk None identified. Assessment: 01:03 General: Appears in no apparent distress. Behavior is calm, cooperative, appropriate ll2 for age. Pain: Complains of pain in right foot and left foot. Neuro: Level of Consciousness is awake, alert, obeys commands, Oriented to person, place, time, situation. Cardiovascular: Patient's skin is warm and dry. Respiratory: Airway is patent Respiratory effort is even, unlabored, Respiratory pattern is regular, symmetrical. Derm: Skin is intact, eraser sized wound healing to rt sole of foot. Skin is dry, Skin is pink, warm \T\ dry. Musculoskeletal: Circulation, motion, and sensation intact. Range of motion: intact in all extremities. Vital Signs: 00:56 BP 127 / 91; Pulse 69; Resp 16; Temp 98.3; Pulse Ox 96% ; ll2 01:09 BP 127 / 91; Pulse 69; Resp 16; Temp 98.3; Pulse Ox 96% on R/A; ll2 ED Course: 00:40 Patient arrived in ED. am2 00:42 Arm band placed on. sg 00:49 Marylin Posada MD is Attending Physician. ma2 00:56 Deborah Ramos, [place] is Primary Nurse. ll2 01:03 Triage completed. ll2 01:10 Patient has correct armband on for positive identification. Bed in low position. Call ll2 light in reach. Side rails up X 1. Pulse ox on. NIBP on. 01:17 No provider procedures requiring assistance completed. Patient did not have IV access ll2 during this emergency room visit. Administered Medications: No medications were administered Outcome: 01:06 Discharge ordered by . ma2 01:16 Discharged to home ambulatory. ll2 01:16 Condition: stable 01:16 Discharge instructions given to patient, Instructed on discharge instructions, follow up and referral plans. medication usage, Demonstrated understanding of instructions, follow-up care, medications, Prescriptions given X 1. 01:18 Patient left the ED. ll2 Signatures: Justus Glass, RN RN Keri Cohn 2 Marylin Posada MD MD [facility] Deborah Ramos RN RN 2
[2020-01-11 05:50] VITALS: BP 127/91; TEMP 98.3; O2SAT 96
== END 2020-01-11 01:18 | disposition home or self-care (01) ==
LOC: ER 00:38
DX: L03.116 Cellulitis of left lower limb (principal); L03.126 Acute lymphangitis of left lower limb; Z72.0 Tobacco use; Z88.5 Allergy status to narcotic agent
CPT/HCPCS: 99283

== ENCOUNTER 2020-04-02 02:45 | Emergency (ER) | payer MEDICAID ==
--- NOTE | 2020-04-02 03:46 | ER ---
Nurse's Notes [facility] Name: Austin Mtz Age: 50 yrs Sex: Male : 1970 Arrival Date: 04/02/2020 Time: 02:55 Bed 4 Private MD: Diagnosis: Rhinorrhea Presentation: 04/02 03:05 Chief complaint: Patient states: he has been having a runny nose lately denies fever, bb cough. Coronavirus screen: At this time, the client does not indicate any symptoms associated with coronavirus-19. Ebola Screen: No symptoms or risks identified at this time. Initial Sepsis Screen: Does the patient meet any 2 criteria? No. Patient's initial sepsis screen is negative. Does the patient have a suspected source of infection? No. Patient's initial sepsis screen is negative. Risk Assessment: Do you want to hurt yourself or someone else? Patient reports no desire to harm self or others. Onset of symptoms was March 2020. 03:05 Method Of Arrival: Ambulatory bb 03:05 Acuity: FREDIS 4 bb Triage Assessment: 03:09 General: Appears in no apparent distress. Behavior is calm, cooperative. Pain: Denies bb pain. Historical: - Allergies: 03:09 Codeine; bb 03:09 Haloperidol; bb - Home Meds: 03:09 None [Active]; bb - PMHx: 03:09 bells palsy; Bipolar disorder; chronic back pain; Schizo-affective disorder; bb - PSHx: 03:09 Ear Tubes; bb - Immunization history:: Adult Immunizations unknown. - Social history:: Smoking status: Patient reports the use of cigarette tobacco products, smokes one pack cigarettes per day. Screenin:20 Abuse screen: Denies threats or abuse. Denies injuries from another. Nutritional rr5 screening: No deficits noted. Tuberculosis screening: No symptoms or risk factors identified. Fall Risk None identified. Total Loera Fall Scale indicates No Risk (0-24 pts). Assessment: 03:19 General: Appears in no apparent distress. comfortable, Behavior is calm, cooperative, rr5 appropriate for age. Pain: Denies pain. Neuro: Level of Consciousness is awake, alert, obeys commands, Oriented to person, place, time. Cardiovascular: Capillary refill < 3 seconds Patient's skin is warm and dry. Respiratory: Reports runny nose Airway is patent Respiratory effort is even, unlabored, Respiratory pattern is regular, symmetrical. GI: No signs and/or symptoms were reported involving the gastrointestinal system. : No signs and/or symptoms were reported regarding the genitourinary system. EENT: No signs and/or symptoms were reported regarding the EENT system. Derm: Skin is intact, is healthy with good turgor, Skin temperature is warm. Musculoskeletal: Circulation, motion, and sensation intact. Capillary refill < 3 seconds. Vital Signs: 03:05 BP 136 / 70; Pulse 72; Resp 16 S; Temp 98(O); Pulse Ox 97% on R/A; Weight 107.5 kg (M); bb Height 5 ft. 10 in. (177.80 cm) (R); Pain 0/10; 04:05 BP 125 / 70; Pulse 70; Resp 19; Pulse Ox 99% ; rr5 03:05 Body Mass Index 34.01 (107.50 kg, 177.80 cm) ED Course: 02:55 Patient arrived in ED. 2 03:07 Triage completed. 03:09 Arm band placed on Patient placed in an exam room, on a stretcher, on pulse oximetry. 03:14 Brayan Byrnes, RN is Primary Nurse. rr5 03:17 Sergey Kowalski MD is Attending Physician. [facility] 03:20 Patient has correct armband on for positive identification. Bed in low position. Call rr5 light in reach. 04:11 No provider procedures requiring assistance completed. Patient did not have IV access rr5 during this emergency room visit. Administered Medications: No medications were administered Outcome: 03:46 Discharge ordered by . 7 04:10 Patient left the ED. rr5 04:11 Discharged to home ambulatory. rr5 04:11 Condition: stable 04:11 Discharge instructions given to patient, Instructed on discharge instructions, follow up and referral plans. Demonstrated understanding of instructions, follow-up care. Signatures: Vianca Romero RN RN Brayan Byrnes RN RN 5 Rocky Merritt 2 Sergey Kowalski MD MD [facility]
--- NOTE | 2020-04-02 03:47 | EDPHYS ---
Physician Documentation [facility] Name: Austin Mtz Age: 50 yrs Sex: Male : 1970 Arrival Date: 04/02/2020 Time: 02:55 Bed 4 Private MD: ED Physician Sergey Kowalski HPI: 04/02 03:35 This 50 yrs old Male presents to ER via Ambulatory with complaints of Runny mh7 Nose. 03:36 The patient or guardian reports Runny Nose. mh7 03:36 Onset: The symptoms/episode began/occurred 4 day(s) ago. Severity of symptoms: At their mh7 worst the symptoms were very mild, yesterday, in the emergency department the symptoms are unchanged. Modifying factors: The symptoms are alleviated by nothing, the symptoms are aggravated by nothing. Associated signs and symptoms: Pertinent positives: rhinorrhea, Pertinent negatives: chest pain, diarrhea, ear ache, fever, nausea, sore throat, vomiting. Historical: - Allergies: 03:09 Codeine; bb 03:09 Haloperidol; bb - Home Meds: 03:09 None [Active]; bb - PMHx: 03:09 bells palsy; Bipolar disorder; chronic back pain; Schizo-affective disorder; bb - PSHx: 03:09 Ear Tubes; bb - Immunization history:: Adult Immunizations unknown. - Social history:: Smoking status: Patient reports the use of cigarette tobacco products, smokes one pack cigarettes per day. ROS: 03:36 Constitutional: Negative for fever, chills, and weight loss, Eyes: Negative for injury, mh7 pain, redness, and discharge. 03:36 Neck: Negative for injury, pain, and swelling, Cardiovascular: Negative for chest pain, palpitations, and edema, Respiratory: Negative for shortness of breath, cough, wheezing, and pleuritic chest pain, Abdomen/GI: Negative for abdominal pain, nausea, vomiting, diarrhea, and constipation, Back: Negative for injury and pain, : Negative for injury, bleeding, discharge, and swelling, MS/Extremity: Negative for injury and deformity, Skin: Negative for injury, rash, and discoloration, Neuro: Negative for headache, weakness, numbness, tingling, and seizure, Psych: Negative for depression, anxiety, suicide ideation, homicidal ideation, and hallucinations, Allergy/Immunology: Negative for hives, rash, and allergies, Endocrine: Negative for neck swelling, polydipsia, polyuria, polyphagia, and marked weight changes, Hematologic/Lymphatic: Negative for swollen nodes, abnormal bleeding, and unusual bruising. 03:36 ENT: Negative for injury or acute deformity, drainage from ear(s), ear pain, foreign body sensation, Gum pain hearing loss, pulling at ears, Teeth pain tinnitus, nasal discharge, sinus congestion, sinus pain, sore throat, dental pain, difficulty swallowing, difficulty handling secretions, hoarseness. Exam: 03:36 Constitutional: This is a well developed, well nourished patient who is awake, alert, mh7 and in no acute distress. Head/Face: Normocephalic, atraumatic. Eyes: Pupils equal round and reactive to light, extra-ocular motions intact. Lids and lashes normal. Conjunctiva and sclera are non-icteric and not injected. Cornea within normal limits. Periorbital areas with no swelling, redness, or edema. ENT: Nares patent. No nasal discharge, no septal abnormalities noted. Tympanic membranes are normal and external auditory canals are clear. Oropharynx with no redness, swelling, or masses, exudates, or evidence of obstruction, uvula midline. Mucous membranes moist. Neck: Trachea midline, no thyromegaly or masses palpated, and no cervical lymphadenopathy. Supple, full range of motion without nuchal rigidity, or vertebral point tenderness. No Meningismus. Chest/axilla: Normal chest wall appearance and motion. Nontender with no deformity. No lesions are appreciated. Cardiovascular: Regular rate and rhythm with a normal S1 and S2. No gallops, murmurs, or rubs. Normal PMI, no JVD. No pulse deficits. Respiratory: Lungs have equal breath sounds bilaterally, clear to auscultation and percussion. No rales, rhonchi or wheezes noted. No increased work of breathing, no retractions or nasal flaring. Abdomen/GI: Soft, non-tender, with normal bowel sounds. No distension or tympany. No guarding or rebound. No evidence of tenderness throughout. Back: No spinal tenderness. No costovertebral tenderness. Full range of motion. Skin: Warm, dry with normal turgor. Normal color with no rashes, no lesions, and no evidence of cellulitis. MS/ Extremity: Pulses equal, no cyanosis. Neurovascular intact. Full, normal range of motion. Neuro: Awake and alert, GCS 15, oriented to person, place, time, and situation. Cranial nerves II-XII grossly intact. Motor strength 5/5 in all extremities. Sensory grossly intact. Cerebellar exam normal. Normal gait. Psych: Awake, alert, with orientation to person, place and time. Behavior, mood, and affect are within normal limits. Vital Signs: 03:05 BP 136 / 70; Pulse 72; Resp 16 S; Temp 98(O); Pulse Ox 97% on R/A; Weight 107.5 kg (M); bb Height 5 ft. 10 in. (177.80 cm) (R); Pain 0/10; 04:05 BP 125 / 70; Pulse 70; Resp 19; Pulse Ox 99% ; rr5 03:05 Body Mass Index 34.01 (107.50 kg, 177.80 cm) bb MDM: 03:43 Differential Diagnosis: Upper Respiratory Infection Sinusitis Allergic Rhinitis Viral mh7 Syndrome. Data reviewed: vital signs, nurses notes. Data interpreted: Pulse oximetry: on room air is 97 %. Interpretation: normal. Counseling: I had a detailed discussion with the patient and/or guardian regarding: the historical points, exam findings, and any diagnostic results supporting the discharge/admit diagnosis, the presence of at least one elevated blood pressure reading (>120/80) during this emergency department visit, the need for outpatient follow up, to return to the emergency department if symptoms worsen or persist or if there are any questions or concerns that arise at home. Response to treatment: the patient's symptoms have markedly improved after treatment. 03:46 Patient medically screened. mh7 Administered Medications: No medications were administered Disposition: 04/02/20 03:46 Discharged to Home. Impression: Rhinorrhea. - Condition is Stable. - Discharge Instructions: Nonallergic Rhinitis. - Medication Reconciliation Form, Thank You Letter, Antibiotic Education, Prescription Opioid Use form. - Follow up: Private Physician; When: 1 - 2 days; Reason: Worsening of condition, Recheck today's complaints, Continuance of care, Re-evaluation by your physician. - Problem is an ongoing problem. - Symptoms have improved. Signatures: Vianca Romero RN RN bb Brayan Byrnes RN RN rr5 Sergey Kowalski MD MD mh7 Corrections: (The following items were deleted from the chart) 04:10 03:46 04/02/2020 03:46 Discharged to Home. Impression: Rhinorrhea. Condition is Stable. rr5 Forms are Medication Reconciliation Form, Thank You Letter, Antibiotic Education, Prescription Opioid Use. Follow up: Private Physician; When: 1 - 2 days; Reason: Worsening of condition, Recheck today's complaints, Continuance of care, Re-evaluation by your physician. Problem is an ongoing problem. Symptoms have improved. mh7
[2020-04-02 04:41] VITALS: TEMP 98
[2020-04-02 04:42] VITALS: BP 125/70; O2SAT 99
== END 2020-04-02 04:10 | disposition home or self-care (01) ==
LOC: ER 02:45
DX: J34.89 Other specified disorders of nose and nasal sinuses (principal); F17.210 Nicotine dependence, cigarettes, uncomplicated; Z88.5 Allergy status to narcotic agent
CPT/HCPCS: 99283

== ENCOUNTER 2020-08-26 20:35 | Emergency (ER) | payer MEDICAID ==
--- NOTE | 2020-08-26 22:07 | ER ---
Nurse's Notes [facility] Name: Austin Mtz Age: 50 yrs Sex: Male : 1970 Arrival Date: 08/26/2020 Time: 20:38 Bed 25 Private MD: Diagnosis: Local infection of the skin and subcutaneous tissue, unspecified Presentation: 08/26 20:49 Chief complaint: Patient states: swelling, redness on eliud foot. More swollen on the R ca1 foot. 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 Coronavirus screen: Client denies travel out of the [place] in the last 14 days. At this time, the client does not indicate any symptoms associated with coronavirus-19. Ebola Screen: Patient negative for fever greater than or equal to 101.5 degrees Fahrenheit, and additional compatible Ebola Virus Disease symptoms Patient denies exposure to infectious person. Patient denies travel to an Ebola-affected area in the 21 days before illness onset. No symptoms or risks identified at this time. Initial Sepsis Screen: Does the patient meet any 2 criteria? No. Patient's initial sepsis screen is negative. Does the patient have a suspected source of infection? No. Patient's initial sepsis screen is negative. Risk Assessment: Do you want to hurt yourself or someone else? Patient reports no desire to harm self or others. Onset of symptoms was August 26, 2020. 20:49 Method Of Arrival: Ambulatory ca1 20:49 Acuity: FREDIS 3 ca1 Historical: - Allergies: 20:52 Codeine; ca1 20:52 Haloperidol; ca1 - PMHx: 20:52 bells palsy; Bipolar disorder; chronic back pain; Schizo-affective disorder; ca1 - Immunization history:: Client reports having NOT received the Covid vaccine. Flu vaccine is not up to date. - Social history:: Smoking status: Patient reports the use of cigarette tobacco products, smokes one-half pack cigarettes per day. Screenin:40 Abuse screen: Denies threats or abuse. Nutritional screening: No deficits noted. jb4 Tuberculosis screening: No symptoms or risk factors identified. Fall Risk None identified. Assessment: 21:40 General: Appears in no apparent distress. comfortable, Behavior is calm, cooperative, jb4 appropriate for age. Pain: Denies pain. Neuro: Level of Consciousness is awake, alert, obeys commands, Oriented to person, place, time, situation. Cardiovascular: Patient's skin is warm and dry. Respiratory: Airway is patent Respiratory effort is even, unlabored, Respiratory pattern is regular, symmetrical. GI: No signs and/or symptoms were reported involving the gastrointestinal system. : No signs and/or symptoms were reported regarding the genitourinary system. EENT: No signs and/or symptoms were reported regarding the EENT system. Derm: Skin is intact, Skin is pink, warm \T\ dry. Musculoskeletal: Circulation, motion, and sensation intact. Range of motion: intact in all extremities. 22:23 Reassessment: Patient appears in no apparent distress at this time. Patient and/or jb4 family updated on plan of care and expected duration. Pain level reassessed. Patient is alert, oriented x 3, equal unlabored respirations, skin warm/dry/pink. Vital Signs: 20:49 BP 123 / 92; Pulse 94; Resp 18 S; Temp 97.5(TE); Pulse Ox 99% on R/A; ca1 ED Course: 20:38 Patient arrived in ED. wm 20:52 Triage completed. ca1 20:52 Arm band placed on right wrist. ca1 21:38 [facility]C [facility] kb 21:38 Sergey Kowalski MD is Attending Physician. kb 21:40 Patient has correct armband on for positive identification. Bed in low position. Call jb4 light in reach. Side rails up X 1. 22:22 Virgilio Verdin, RN is Primary Nurse. jb4 22:24 No provider procedures requiring assistance completed. Patient did not have IV access jb4 during this emergency room visit. Administered Medications: 22:22 Drug: Ibuprofen 800 mg Route: PO; jb4 22:22 Follow up: Response: Medication administered at discharge. jb4 22:22 Drug: KeFLEX (cephalexin) 500 mg Route: PO; jb4 22:22 Follow up: Response: Medication administered at discharge. jb4 Outcome: 22:06 Discharge ordered by . kb 22:24 Discharged to home ambulatory. jb4 22:24 Condition: stable 22:24 Discharge instructions given to patient, Instructed on discharge instructions, follow up and referral plans. medication usage, Demonstrated understanding of instructions, follow-up care, medications, Prescriptions given X 1. 22:25 Patient left the ED. jb4 Signatures: Rosi Garcia FNP-Lydia DIEGO-Virgilio Alvarez, RN RN jb4 Miguelina Marques RN RN ca1 Edna Molina Corrections: (The following items were deleted from the chart) 20:53 20:49 Immunization history: Client reports receiving the 2nd dose of the Covid vaccine, ca1 Client reports receiving the 1st dose of the Covid vaccine, Flu vaccine is not up to date. ca1
--- NOTE | 2020-08-26 22:07 | EDPHYS ---
Physician Documentation [facility] Name: Austin Mtz Age: 50 yrs Sex: Male : 1970 Arrival Date: 08/26/2020 Time: 20:38 Bed 25 Private MD: ED Physician Sergey Kowalski HPI: 08/26 22:44 This 50 yrs old Male presents to ER via Ambulatory with complaints of "MESSED kb UP FOOT". 22:44 The patient presents with an abrasion, tenderness. The complaints affect the right kb foot. Context: The problem was sustained outdoors, the patient can fully bear weight, the patient is able to ambulate. Onset: The symptoms/episode began/occurred last week. Modifying factors: The symptoms are alleviated by nothing, the symptoms are aggravated by nothing. Associated signs and symptoms: Pertinent positives: swelling. Severity of symptoms: At their worst the symptoms were moderate, in the emergency department the symptoms are unchanged. The patient has not experienced similar symptoms in the past. The patient has not recently seen a physician. Pt reports an insect bit his foot, then he scratched it and broke the skin. c/o redness to top of foot now. Also reports bilateral ear pain and loose wisdom tooth. Historical: - Allergies: 20:52 Codeine; ca1 20:52 Haloperidol; ca1 - PMHx: 20:52 bells palsy; Bipolar disorder; chronic back pain; Schizo-affective disorder; ca1 - Immunization history:: Client reports having NOT received the Covid vaccine. Flu vaccine is not up to date. - Social history:: Smoking status: Patient reports the use of cigarette tobacco products, smokes one-half pack cigarettes per day. ROS: 22:39 Constitutional: Negative for fever, chills, and weight loss. kb 22:39 ENT: Positive for ear pain. 22:39 Skin: Positive for abrasion(s), erythema, of the dorsum of right foot. 22:40 All other systems are negative. kb Exam: 22:40 Constitutional: This is a well developed, well nourished patient who is awake, alert, kb and in no acute distress. Head/Face: Normocephalic, atraumatic. ENT: Moist Mucous membranes Respiratory: Respirations even and unlabored. No increased work of breathing, no retractions or nasal flaring. MS/ Extremity: Pulses equal, no cyanosis. Neurovascular intact. Full, normal range of motion. Neuro: Awake and alert, GCS 15, oriented to person, place, time, and situation. Moves all extremities. Normal gait. Psych: Awake, alert, with orientation to person, place and time. Behavior, mood, and affect are within normal limits. 22:40 Skin: cellulitis, that is minimal, on the dorsum of right foot, injury, abrasion(s), small abrasion noted, of the dorsum of right foot. 22:44 ENT: External ear(s): are unremarkable, Ear canal(s): are normal, TM's: are normal. kb Vital Signs: 20:49 BP 123 / 92; Pulse 94; Resp 18 S; Temp 97.5(TE); Pulse Ox 99% on R/A; ca1 MDM: 21:40 Patient medically screened. kb 22:39 Data reviewed: vital signs, nurses notes. Data interpreted: Pulse oximetry: on room air kb is 99 %. Interpretation: normal. Counseling: I had a detailed discussion with the patient and/or guardian regarding: the historical points, exam findings, and any diagnostic results supporting the discharge/admit diagnosis, the need for outpatient follow up, a family practitioner, to return to the emergency department if symptoms worsen or persist or if there are any questions or concerns that arise at home. Administered Medications: 22:22 Drug: Ibuprofen 800 mg Route: PO; jb4 22:22 Follow up: Response: Medication administered at discharge. jb4 22:22 Drug: KeFLEX (cephalexin) 500 mg Route: PO; jb4 22:22 Follow up: Response: Medication administered at discharge. jb4 Disposition: 08/27 04:20 Co-signature as Attending Physician, Sergey Kowalski MD. mh7 Disposition Summary: 08/26/20 22:06 Discharge Ordered Location: Home kb Condition: Stable kb Diagnosis - Local infection of the skin and subcutaneous tissue, unspecified kb Followup: kb - With: Emergency Department - When: As needed - Reason: Worsening of condition Followup: kb - With: Private Physician - When: 2 - 3 days - Reason: Recheck today's complaints, Continuance of care, Re-evaluation by your physician Discharge Instructions: - Discharge Summary Sheet kb - Insect Bite, Adult, [id number] kb - Wound Infection, [id number] kb Forms: - Medication Reconciliation Form kb - Thank You Letter kb - Antibiotic Education kb - Prescription Opioid Use kb Prescriptions: - Cephalexin 500 mg Oral Capsule - take 1 capsule by ORAL route every 8 hours for 10 days; 30 capsule; Refills: 0, kb Product Selection Permitted Signatures: Rosi Garcia FNP-C FNP-Ckb Bryson, James RN RN jb4 Miguelina Marques RN RN ca1 Sergey Kowalski MD MD mh7 Corrections: (The following items were deleted from the chart) 08/26 20:53 20:49 Immunization history: Client reports receiving the 2nd dose of the Covid vaccine, ca1 Client reports receiving the 1st dose of the Covid vaccine, Flu vaccine is not up to date. ca1
[2020-08-26 22:31] VITALS: BP 123/92; TEMP 97.5; O2SAT 99
[2020-08-26] MEDS ORDERED: IBUPROFEN 400 MG TAB ONE (22:37)
[2020-08-26] MEDS ORDERED: CEPHALEXIN 250 MG CAP ONE (22:37)
== END 2020-08-26 22:25 | disposition home or self-care (01) ==
LOC: ER 20:35
DX: S90.811A Abrasion, right foot, initial encounter (principal); L08.9 Local infection of the skin and subcutaneous tissue, unspecified; F17.210 Nicotine dependence, cigarettes, uncomplicated; H92.03 Otalgia, bilateral; X58.XXXA Exposure to other specified factors, initial encounter; F31.9 Bipolar disorder, unspecified; F25.9 Schizoaffective disorder, unspecified; M54.9 Dorsalgia, unspecified; G89.29 Other chronic pain
CPT/HCPCS: 99283

== ENCOUNTER 2020-08-28 02:02 | Emergency (ER) | payer MEDICAID ==
--- NOTE | 2020-08-28 04:27 | ER ---
Nurse's Notes [facility] Name: Austin Mtz Age: 50 yrs Sex: Male : 1970 Arrival Date: 08/28/2020 Time: 02:08 Bed 12 Private MD: Diagnosis: Cellulitis, Right Foot Presentation: 08/28 02:25 Chief complaint: Patient states: he was seen yesterday for a foot infection and is bb homeless so he wants a dressing change and something for the pain. Coronavirus screen: At this time, the client does not indicate any symptoms associated with coronavirus-19. Ebola Screen: No symptoms or risks identified at this time. Initial Sepsis Screen: Does the patient meet any 2 criteria? No. Patient's initial sepsis screen is negative. Does the patient have a suspected source of infection? No. Patient's initial sepsis screen is negative. Risk Assessment: Do you want to hurt yourself or someone else? Patient reports no desire to harm self or others. Onset of symptoms is unknown. 02:25 Method Of Arrival: Ambulatory bb 02:25 Acuity: FREDIS 5 bb Triage Assessment: 02:30 General: Appears in no apparent distress. Behavior is calm, cooperative. Pain: bb Complains of pain in right foot. Neuro: Level of Consciousness is awake, alert, obeys commands, Oriented to person, place, time, situation. Cardiovascular: Capillary refill < 3 seconds Patient's skin is warm and dry. Respiratory: Airway is patent Respiratory effort is even, unlabored. GI: No signs and/or symptoms were reported involving the gastrointestinal system. Derm: Skin is pink, warm \T\ dry. Musculoskeletal: Circulation, motion, and sensation intact. Reports pain in right foot. Historical: - Allergies: 02:30 Codeine; bb 02:30 Haloperidol; bb - PMHx: 02:30 bells palsy; Bipolar disorder; chronic back pain; Schizo-affective disorder; bb - Immunization history:: Adult Immunizations unknown. - Social history:: Smoking status: unknown. Screenin:55 Abuse screen: Denies threats or abuse. Nutritional screening: No deficits noted. bb Tuberculosis screening: No symptoms or risk factors identified. Fall Risk None identified. Assessment: 03:55 Reassessment: No changes from previously documented assessment. see triage assessment. bb 04:39 Reassessment: Patient is alert, oriented x 3, equal unlabored respirations, skin bb warm/dry/pink. pt verbalized understanding of and agrees to plan of care discharge instructions given pt ambulated with steady gait to exit. Vital Signs: 02:25 BP 117 / 86; Pulse 71; Resp 16 S; Temp 97.5(TE); Pulse Ox 96% on R/A; Weight 112.49 kg bb (M); ED Course: 02:08 Patient arrived in ED. 2 02:30 Triage completed. bb 02:30 Arm band placed on Patient placed in waiting room, Patient notified of wait time. bb 03:55 Patient has correct armband on for positive identification. bb 03:57 Sergey Kowalski MD is Attending Physician. [facility] 04:06 Vianca Romero RN is Primary Nurse. bb Administered Medications: 04:13 Drug: Ibuprofen 800 mg Route: PO; bb Outcome: 04:27 Discharge ordered by . [facility] 05:14 Patient left the ED. bb Signatures: Vianca Romero RN RN bb Rocky Merritt cf2 Sergey Kowalski MD MD [facility]
--- NOTE | 2020-08-28 04:28 | EDPHYS ---
Physician Documentation [facility] Name: Austin Mtz Age: 50 yrs Sex: Male : 1970 Arrival Date: 08/28/2020 Time: 02:08 Bed 12 Private MD: ED Physician Sergey Kowalski HPI: 08/28 04:06 This 50 yrs old Male presents to ER via Ambulatory with complaints of Foot mh7 Pain. 04:06 The patient presents with pain, that is chronic. The complaints affect the right foot. mh7 Context: The problem was sustained at an unknown location, resulted from possible insect bite, Mechanism of Injury: none the patient can fully bear weight, the patient is able to ambulate, without difficulty. Onset: The symptoms/episode began/occurred 4 week(s) ago. Modifying factors: The symptoms are alleviated by OTC meds, the symptoms are aggravated by weight bearing. Associated signs and symptoms: Pertinent negatives: calf tenderness, fever, nausea, numbness, rash, swelling, tingling, vomiting, warmth, weakness. Severity of symptoms: At their worst the symptoms were moderate, 2 day(s) ago, in the emergency department the symptoms have improved, moderately. The patient has been recently seen at the [facility] Emergency Department, yesterday. States that he was seen here yesterday and treated but states they forgot to give him a dressing and pain medication for his foot.. Historical: - Allergies: 02:30 Codeine; bb 02:30 Haloperidol; bb - PMHx: 02:30 bells palsy; Bipolar disorder; chronic back pain; Schizo-affective disorder; bb - Immunization history:: Adult Immunizations unknown. - Social history:: Smoking status: unknown. ROS: 04:06 Constitutional: Negative for fever, chills, and weight loss, Eyes: Negative for injury, mh7 pain, redness, and discharge, ENT: Negative for injury, pain, and discharge, Neck: Negative for injury, pain, and swelling, Cardiovascular: Negative for chest pain, palpitations, and edema, Respiratory: Negative for shortness of breath, cough, wheezing, and pleuritic chest pain, Abdomen/GI: Negative for abdominal pain, nausea, vomiting, diarrhea, and constipation, Back: Negative for injury and pain, : Negative for injury, bleeding, discharge, and swelling, Neuro: Negative for headache, weakness, numbness, tingling, and seizure, Psych: Negative for depression, anxiety, suicide ideation, homicidal ideation, and hallucinations, Allergy/Immunology: Negative for hives, rash, and allergies, Endocrine: Negative for neck swelling, polydipsia, polyuria, polyphagia, and marked weight changes, Hematologic/Lymphatic: Negative for swollen nodes, abnormal bleeding, and unusual bruising. Exam: 04:06 Constitutional: This is a well developed, well nourished patient who is awake, alert, mh7 and in no acute distress. Head/Face: Normocephalic, atraumatic. Eyes: Pupils equal round and reactive to light, extra-ocular motions intact. Lids and lashes normal. Conjunctiva and sclera are non-icteric and not injected. Cornea within normal limits. Periorbital areas with no swelling, redness, or edema. Neck: Trachea midline, no thyromegaly or masses palpated, and no cervical lymphadenopathy. Supple, full range of motion without nuchal rigidity, or vertebral point tenderness. No Meningismus. Chest/axilla: Normal chest wall appearance and motion. Nontender with no deformity. No lesions are appreciated. Cardiovascular: Regular rate and rhythm with a normal S1 and S2. No gallops, murmurs, or rubs. Normal PMI, no JVD. No pulse deficits. Respiratory: Lungs have equal breath sounds bilaterally, clear to auscultation and percussion. No rales, rhonchi or wheezes noted. No increased work of breathing, no retractions or nasal flaring. Abdomen/GI: Soft, non-tender, with normal bowel sounds. No distension or tympany. No guarding or rebound. No evidence of tenderness throughout. Back: No spinal tenderness. No costovertebral tenderness. Full range of motion. 04:06 Musculoskeletal/extremity: Extremities: noted in the right foot: erythema, excoriated skin, ROM: intact in all extremities, Circulation is intact in all extremities. Sensation intact. Weight bearing: able to fully bear weight, without difficulty. 04:25 Skin: cellulitis, that is mild, confluent, on the dorsal right foot. [facility] Vital Signs: 02:25 BP 117 / 86; Pulse 71; Resp 16 S; Temp 97.5(TE); Pulse Ox 96% on R/A; Weight 112.49 kg bb (M); MDM: 04:06 Differential diagnosis: cellulitis, soft tissue infection, foot pain. Data reviewed: [facility] vital signs, nurses notes, old medical records. 04:25 Counseling: I had a detailed discussion with the patient and/or guardian regarding: the [facility] historical points, exam findings, and any diagnostic results supporting the discharge/admit diagnosis, the need for outpatient follow up, to return to the emergency department if symptoms worsen or persist or if there are any questions or concerns that arise at home. Response to treatment: the patient's symptoms have markedly improved after treatment. 04:27 Patient medically screened. [facility] 08/28 04:05 Order name: Juvenal Wrap; Complete Time: 04:13 [facility] Administered Medications: 04:13 Drug: Ibuprofen 800 mg Route: PO; bb Disposition Summary: 08/28/20 04:27 Discharge Ordered Location: Home [facility] Problem: an ongoing problem [facility] Symptoms: have improved [facility] Condition: Stable [facility] Diagnosis - Cellulitis, Right Foot [facility] Followup: [facility] - With: Private Physician - When: 1 - 2 days - Reason: Worsening of condition, Recheck today's complaints, Continuance of care, Re-evaluation by your physician Discharge Instructions: - Discharge Summary Sheet [facility] - Cellulitis, Adult, [id number] [facility] Forms: - Medication Reconciliation Form [facility] - Thank You Letter [facility] - Antibiotic Education [facility] - Prescription Opioid Use [facility] Prescriptions: - Ibuprofen 800 mg Oral Tablet - take 1 tablet by ORAL route every 8 hours As needed take with food; 15 tablet; [facility] Refills: 0, Product Selection Permitted - Bactrim DS 800-160 mg Oral Tablet - take 1 tablet by ORAL route every 12 hours for 10 days; 20 tablet; Refills: 0, [facility] Product Selection Permitted Signatures: Vianca Romero RN RN bb Sergey Kowalski MD MD [facility] Corrections: (The following items were deleted from the chart) 04:25 04:06 Skin: Warm, dry with normal turgor. Normal color with no rashes, no lesions, and 7 no evidence of cellulitis. Neuro: Awake and alert, GCS 15, oriented to person, place, time, and situation. Cranial nerves II-XII grossly intact. Motor strength 5/5 in all extremities. Sensory grossly intact. Cerebellar exam normal. Normal gait. Psych: Awake, alert, with orientation to person, place and time. Behavior, mood, and affect are within normal limits. mh7
[2020-08-28] MEDS ORDERED: IBUPROFEN 400 MG TAB ONE (04:30)
[2020-08-28 05:19] VITALS: BP 117/86; TEMP 97.5; O2SAT 96
== END 2020-08-28 05:14 | disposition home or self-care (01) ==
LOC: ER 02:02
DX: L03.115 Cellulitis of right lower limb (principal); Z88.5 Allergy status to narcotic agent
CPT/HCPCS: 99282

== ENCOUNTER 2020-08-29 22:11 | Emergency (ER) | payer MEDICAID ==
--- NOTE | 2020-08-29 23:16 | EDPHYS ---
Physician Documentation [facility] Name: Austin Mtz Age: 50 yrs Sex: Male : 1970 Arrival Date: 08/29/2020 Time: 22:15 Bed 18 Private MD: ED Physician Geraldo Almaraz HPI: 08/29 23:00 This 50 yrs old Male presents to ER via Ambulatory with complaints of TOE cp INFECTED. 23:00 Patient presents to ED for recheck of: chronic wound to right great toe. cp 23:00 Previous treatment: Treatment type: The patient's original treatment included dressing, cp oral antibiotics. Progress: The patient reports excellent improvement in the affected area. There has been resolution, improvement, or non-development of any drainage, fever, pain, redness or swelling. Patient requesting dressing change for wound to right great toe. Historical: - Allergies: 22:41 Codeine; ld1 22:41 Haloperidol; ld1 - Home Meds: 22:41 None [Active]; ld1 - PMHx: 22:41 bells palsy; Bipolar disorder; Schizo-affective disorder; chronic back pain; ld1 - PSHx: 22:41 None; ld1 - Immunization history:: Adult Immunizations up to date. - Social history:: Smoking status: Patient/guardian denies using tobacco. ROS: 23:05 Skin: Positive for of the dorsum right great toe, chronic wound. cp 23:05 Eyes: Negative for injury, pain, redness, and discharge. cp 23:05 Constitutional: Negative for body aches, chills, fever, poor PO intake. 23:05 Cardiovascular: Negative for chest pain. 23:05 Respiratory: Negative for cough, shortness of breath, wheezing. 23:05 Abdomen/GI: Negative for abdominal pain, nausea, vomiting, and diarrhea. 23:05 All other systems are negative. Exam: 23:08 Constitutional: The patient appears in no acute distress, alert, awake, non-toxic, well cp developed, well nourished. 23:08 Head/Face: Normocephalic, atraumatic. cp 23:08 Chest/axilla: Inspection: normal. 23:08 Cardiovascular: Rate: normal. 23:08 Respiratory: the patient does not display signs of respiratory distress, Respirations: normal. 23:08 Skin: Wound recheck: superficial wound noted to proximal phalanx dorsal side right great toe without erythema, swelling, and/or discharge. Vital Signs: 22:40 BP 137 / 57; Pulse 80; Resp 18; Temp 97.9(O); Pulse Ox 98% on R/A; Weight 90.72 kg; ld1 Height 6 ft. 0 in. (182.88 cm); Pain 0/10; 22:40 Body Mass Index 27.12 (90.72 kg, 182.88 cm) ld1 MDM: 22:45 Patient medically screened. [facility] 23:14 Differential diagnosis: cellulitis, abscess, osteomyelitis, sepsis. Data reviewed: cp vital signs, nurses notes. Counseling: I had a detailed discussion with the patient and/or guardian regarding: the historical points, exam findings, and any diagnostic results supporting the discharge/admit diagnosis, the need for outpatient follow up, a family practitioner, to return to the emergency department if symptoms worsen or persist or if there are any questions or concerns that arise at home. 08/29 22:52 Order name: Dressing - Wound: right great toe; Complete Time: 23:06 cp Administered Medications: No medications were administered Disposition: 08/30 07:03 Co-signature as Attending Physician, Geraldo Almaraz MD I agree with the assessment and [facility] plan of care. Disposition Summary: 08/29/20 23:15 Discharge Ordered Location: Home cp Problem: an ongoing problem cp Symptoms: have improved cp Condition: Stable cp Diagnosis - Encounter for change or removal of nonsurgical wound dressing cp Followup: cp - With: Private Physician - When: 2 - 3 days - Reason: Wound Recheck Discharge Instructions: - Discharge Summary Sheet cp - How to Change Your Wound Dressing cp - Wound Care, Adult cp Forms: - Medication Reconciliation Form cp - Thank You Letter cp - Antibiotic Education cp - Prescription Opioid Use cp Signatures: Geraldo Almaraz MD MD cha Page, Corey, PA PA cp Dibbern, Lauren RN RN ld1
--- NOTE | 2020-08-29 23:16 | ER ---
Nurse's Notes [facility] Name: Austin Mtz Age: 50 yrs Sex: Male : 1970 Arrival Date: 08/29/2020 Time: 22:15 Bed 18 Private MD: Diagnosis: Encounter for change or removal of nonsurgical wound dressing Presentation: 08/29 22:40 Chief complaint: Patient states: Right toe wound- requesting for wound dressing to be ld1 changed. Coronavirus screen: At this time, the client does not indicate any symptoms associated with coronavirus-19. Ebola Screen: No symptoms or risks identified at this time. Initial Sepsis Screen: Does the patient meet any 2 criteria? No. Patient's initial sepsis screen is negative. Does the patient have a suspected source of infection? No. Patient's initial sepsis screen is negative. Risk Assessment: Do you want to hurt yourself or someone else? Patient reports no desire to harm self or others. Onset of symptoms was August 29, 2020. 22:40 Method Of Arrival: Ambulatory ld1 22:40 Acuity: FREDIS 4 ld1 Triage Assessment: 22:41 General: Appears in no apparent distress. comfortable, Behavior is calm, cooperative, ld1 appropriate for age. Pain: Denies pain. EENT: No signs and/or symptoms were reported regarding the EENT system. Neuro: Level of Consciousness is awake, alert, obeys commands, Oriented to person, place, time, situation. Cardiovascular: Capillary refill < 3 seconds Patient's skin is warm and dry. Respiratory: Airway is patent Respiratory effort is even, unlabored, Respiratory pattern is regular, symmetrical. GI: No signs and/or symptoms were reported involving the gastrointestinal system. : No signs and/or symptoms were reported regarding the genitourinary system. Derm: Wound noted right first toe. Musculoskeletal: No signs and/or symptoms reported regarding the musculoskeletal system. Historical: - Allergies: 22:41 Codeine; ld1 22:41 Haloperidol; ld1 - Home Meds: 22:41 None [Active]; ld1 - PMHx: 22:41 bells palsy; Bipolar disorder; Schizo-affective disorder; chronic back pain; ld1 - PSHx: 22:41 None; ld1 - Immunization history:: Adult Immunizations up to date. - Social history:: Smoking status: Patient/guardian denies using tobacco. Screenin:42 Abuse screen: Denies threats or abuse. Denies injuries from another. Nutritional ld1 screening: No deficits noted. Tuberculosis screening: No symptoms or risk factors identified. Fall Risk None identified. Assessment: 22:42 Reassessment: See triage assessment. ld1 Vital Signs: 22:40 BP 137 / 57; Pulse 80; Resp 18; Temp 97.9(O); Pulse Ox 98% on R/A; Weight 90.72 kg; ld1 Height 6 ft. 0 in. (182.88 cm); Pain 0/10; 22:40 Body Mass Index 27.12 (90.72 kg, 182.88 cm) ld1 ED Course: 22:15 Patient arrived in ED. es 22:39 Yany Freitas, RN is Primary Nurse. ld1 22:41 Triage completed. ld1 22:41 Arm band placed on left wrist. ld1 22:42 Patient has correct armband on for positive identification. Placed in gown. Bed in low ld1 position. Call light in reach. Side rails up X2. assistant production manager on. Pulse ox on. NIBP on. 22:42 No provider procedures requiring assistance completed. ld1 22:43 Geraldo Patiño PA is PHCP. cp 22:43 Geraldo Almaraz MD is Attending Physician. cp 23:27 Patient did not have IV access during this emergency room visit. ld1 Administered Medications: No medications were administered Outcome: 23:15 Discharge ordered by . cp 23:27 Discharged to home ambulatory. ld1 23:27 Condition: stable 23:27 Discharge instructions given to patient, Instructed on discharge instructions, follow up and referral plans. Demonstrated understanding of instructions, follow-up care. 23:27 Patient left the ED. ld1 Signatures: Kaycee Todd Corey, PA PA cp Yany Freitas, RN RN ld1
[2020-08-29 23:32] VITALS: BP 137/57; TEMP 97.9; O2SAT 98
== END 2020-08-29 23:27 | disposition home or self-care (01) ==
LOC: ER 22:11
DX: Z48.00 Encounter for change or removal of nonsurgical wound dressing (principal); Z88.5 Allergy status to narcotic agent
CPT/HCPCS: 99284

== ENCOUNTER 2021-01-30 10:10 | Emergency (ER) | payer OTHER ==
[2021-01-30] MEDS ORDERED: CLINDAMYCIN 900MG/D5W 900 MG/50 ML IVPB IV ONE (12:06)
[2021-01-30 12:30] LABS: Absolute Lymphocytes (CBC) 1.5 K/uL (0.7-4.9); Basophils % 0.5 % (0-1.3); Hematocrit 45.5 % (39.6-49.0); Lymphocytes % 12.3 % (15.3-44.8); MPV 7.9 fL (7.6-11.3); RBC Red Blood Cell Count 5.18 M/uL (4.33-5.43)
[2021-01-30 12:37] LABS: Protime INR 1.12
[2021-01-30 12:41] LABS: Urine Blood 2+ (Negative); Urine Glucose Negative (Negative); Urine Protein 1+ (Negative); Urine Specific Gravity >=1.030 (1.005-1.030); Urine pH 5.5 (5.0-7.0)
[2021-01-30 12:49] LABS: ALT/SGPT 30 U/L (12-78); AST/SGOT 7 U/L (15-37); Albumin 3.6 g/dL (3.4-5.0); Alkaline Phosphatase 113 U/L (45-117); BUN Blood Urea Nitrogen 10 mg/dL (7-18); Bicarbonate 25 mmol/L (21-32); Bilirubin Direct 0.3 mg/dL (0-0.2); Bilirubin Total 1.5 mg/dL (0.2-1.0); Glucose Level 117 mg/dL (74-106); Potassium 3.7 mmol/L (3.5-5.1); Protein, Total 7.7 g/dL (6.4-8.2); Sodium Level 139 mmol/L (136-145)
--- NOTE | 2021-01-30 13:59 | RAD REPORT ---
EXAM DESCRIPTION: CT - Facial Bones W Con Mpr - 01/30/2021 1:16 pm CLINICAL HISTORY: Right-sided facial swelling x3 days COMPARISON: CT head May 2016 TECHNIQUE: Axial 2 millimeter thick images of the facial bones were obtained following dynamic enhan cement using nonionic IV contrast along with sagittal and coronal reconstruction imaging. All CT scans are performed using dose optimization technique as appropriate and may include automated exposure control or mA/KV adjustment according to patient size. FINDINGS: Along the right anterolateral margin of the maxilla a 14 millimeter low-density collection is present buccal side of the gum line most likely periodontal abscess. There are no erosive or dest ructive bony changes. Congestion and edema seen in the surrounding tissues of the gum and cheek. No a dditional abscess site seen. There are few small reactive lymph nodes in the right-sided tissues. Mild mucosal thickening changes present in the right maxillary sinus and in the anterior ethmoid air cells. No air-fluid level in the paranasal sinuses. No globe or orbital content abnormality. The parotid, submandibular and thyroid gland tissue show no suspicious findings. Patient has numerous small right-sided reactive type lymph nodes. No pathologic lymphadenopathy. No pharyngeal mucosal mass or asymmetry. No tonsil, tongue base or epiglottis abnormality. IMPRESSION: Approximately 14 millimeter sized abscess along the right anterolateral maxilla buccal s urface most likely periodontal abscess. Congestion and edema in the right-sided facial tissues without additional abscess or drainable collec tion. Numerous reactive lymph nodes are present.
--- NOTE | 2021-01-30 15:01 | ER ---
Nurse's Notes [facility] Name: Austin Mtz Age: 50 yrs Sex: Male : 1970 Arrival Date: 01/30/2021 Time: 10:18 Bed 9 Private MD: Sha Matos E Diagnosis: Cellulitis of face;Other specified disorders of teeth and supporting structures-Peridontal Abscess Presentation: 01/30 10:45 Chief complaint: Patient states: Right facial swelling that started 2-3 days ago and ww getting worse. Has a loose right upper tooth that is causing pain with throbbing. Coronavirus screen: Vaccine status: Client denies travel out of the [place] in the last 14 days. Ebola Screen: Patient negative for fever greater than or equal to 101.5 degrees Fahrenheit, and additional compatible Ebola Virus Disease symptoms Patient denies exposure to infectious person. Patient denies travel to an Ebola-affected area in the 21 days before illness onset. Initial Sepsis Screen: Does the patient meet any 2 criteria? No. Patient's initial sepsis screen is negative. Does the patient have a suspected source of infection? No. Patient's initial sepsis screen is negative. Risk Assessment: Do you want to hurt yourself or someone else? Patient reports no desire to harm self or others. Onset of symptoms was January 27, 2021. 10:45 Method Of Arrival: Ambulatory ww 10:45 Acuity: FREDIS 3 ww Triage Assessment: 10:48 General: Appears in no apparent distress. well developed, well nourished, Behavior is ww calm, cooperative, appropriate for age. Pain: Complains of pain in right cheek, mouth and right jaw. EENT: Eyes swelling. Neuro: Level of Consciousness is awake, alert, obeys commands, Oriented to person, place, time, situation, Appropriate for age Gait is steady, Speech is normal. Cardiovascular: No deficits noted. Denies chest pain, shortness of breath, Capillary refill < 3 seconds. Respiratory: No deficits noted. Airway is patent Respiratory effort is even, unlabored, Respiratory pattern is regular, symmetrical. GI: No deficits noted. No signs and/or symptoms were reported involving the gastrointestinal system. : No deficits noted. No signs and/or symptoms were reported regarding the genitourinary system. Derm: Skin is intact, Skin is pink, warm \T\ dry. periorbital edema. Musculoskeletal: No deficits noted. No signs and/or symptoms reported regarding the musculoskeletal system. Historical: - Allergies: 10:48 Codeine; ww 10:48 Haloperidol; ww - Home Meds: 10:48 None [Active]; ww - PMHx: 10:48 bells palsy; Schizo-affective disorder; chronic back pain; Bipolar disorder; ww - PSHx: 10:48 None; ww - Immunization history:: Flu vaccine is not up to date. - Social history:: Smoking status: Patient reports the use of cigarette tobacco products, smokes one-half pack cigarettes per day. Screenin:29 Abuse screen: Denies threats or abuse. Nutritional screening: No deficits noted. ap3 Tuberculosis screening: No symptoms or risk factors identified. Fall Risk None identified. Assessment: 12:28 General: Appears in no apparent distress. uncomfortable. Pain: Complains of pain in ap3 right jaw and mouth and right cheek. Neuro: Level of Consciousness is awake, alert, obeys commands, Oriented to person, place, time, situation, Appropriate for age Moves all extremities. Gait is steady, Speech is normal, Facial symmetry appears normal. Cardiovascular: Patient's skin is warm and dry. Respiratory: Airway is patent Respiratory effort is even, unlabored, Respiratory pattern is regular, symmetrical. Derm:. Musculoskeletal: Swelling present in right side of face. Vital Signs: 10:45 BP 136 / 94; Pulse 63; Resp 18; Temp 98.1; Pulse Ox 99% on R/A; Weight 113.4 kg; Height ww 5 ft. 10 in. (177.80 cm); Pain 0/10; 10:45 Body Mass Index 35.87 (113.40 kg, 177.80 cm) ww ED Course: 10:18 Patient arrived in ED. am2 10:18 Sha Matos MD is Private Physician. am2 10:48 Triage completed. ww 10:48 Arm band placed on left wrist. ww 11:17 Geraldo Patiño PA is PHCP. cp 11:17 Geraldo Almaraz MD is Attending Physician. cp 11:22 Keri Mejia, [place] is Primary Nurse. ap3 12:25 Second set of blood cultures drawn. gd 12:26 First set of blood cultures drawn. Inserted. Inserted saline lock: 20 gauge in left gd forearm, using aseptic technique. 12:28 Inserted 1st set completed at 1210. Inserted. gd 12:29 Patient has correct armband on for positive identification. Placed in gown. Bed in low ap3 position. Call light in reach. Side rails up X 1. Pulse ox on. NIBP on. Door closed. Noise minimized. 13:15 CT Facial Bones W/ Con \T\ Mpr In Process Unspecified. EDMS 14:56 Duke Loomis DDS is Referral Physician. cp 15:51 No provider procedures requiring assistance completed. IV discontinued, intact, jl7 bleeding controlled, No redness/swelling at site. Pressure dressing applied. Administered Medications: 12:11 Drug: Clindamycin 900 mg Route: IVPB; Infused Over: 30 mins; Site: left antecubital; jl7 12:45 Follow up: Response: No adverse reaction; IV Status: Completed infusion jl7 Outcome: 15:00 Discharge ordered by MD. cp 15:51 Discharged to home ambulatory. jl7 15:51 Condition: stable 15:51 Discharge instructions given to patient, Instructed on discharge instructions, follow up and referral plans. medication usage, Demonstrated understanding of instructions, follow-up care, medications, Prescriptions given X 2. 15:52 Patient left the ED. jl7 Signatures: Dispatcher [employer] EDIA Geraldo Patiño PA PA cp Laquita Gorman RN RN jl7 Keri Cohn am2 Keri Mejia RN RN ap3 Dwight Crawford Whitney, RN RN ww Corrections: (The following items were deleted from the chart) 12:30 12:26 Inserted saline lock: 20 gauge in left forearm, using aseptic technique. gd gd
--- NOTE | 2021-01-30 15:01 | EDPHYS ---
Physician Documentation [facility] Name: Austin Mtz Age: 50 yrs Sex: Male : 1970 Arrival Date: 01/30/2021 Time: 10:18 Bed 9 Private MD: Sha Matos E ED Physician Geraldo Almaraz HPI: 01/30 11:30 This 50 yrs old Male presents to ER via Ambulatory with complaints of Facial Swelling - cp right side. 11:30 The patient presents with pain, loose tooth right upper jaw. cp 11:30 Associated signs and symptoms: Pertinent positives: right facial cheek swelling for cp past 2-3 days, Pertinent negatives: chills, fever, inability to eat. Severity of symptoms: in the emergency department the symptoms are unchanged, despite home interventions. Historical: - Allergies: 10:48 Codeine; ww 10:48 Haloperidol; ww - Home Meds: 10:48 None [Active]; ww - PMHx: 10:48 bells palsy; Schizo-affective disorder; chronic back pain; Bipolar disorder; ww - PSHx: 10:48 None; ww - Immunization history:: Flu vaccine is not up to date. - Social history:: Smoking status: Patient reports the use of cigarette tobacco products, smokes one-half pack cigarettes per day. ROS: 11:35 Skin: Positive for swelling, of the right side facial cheek. cp 11:35 Constitutional: Negative for body aches, chills, fever, poor PO intake. cp 11:35 Neuro: Negative for altered mental status, dizziness, headache, weakness. 11:35 ENT: Positive for dental pain, right facial cheek swelling, Negative for ear pain, cp difficulty swallowing, difficulty handling secretions. 11:35 Neck: Negative for pain with movement, pain at rest, stiffness. cp 11:35 Respiratory: Negative for cough, shortness of breath, wheezing. 11:35 Abdomen/GI: Negative for abdominal pain, nausea, vomiting, and diarrhea. 11:35 All other systems are negative. Exam: 11:40 Constitutional: The patient appears in no acute distress, alert, awake, non-toxic, well cp developed, well nourished. 11:40 Head/face: Noted is swelling, that is mild, of the right cheek, tenderness, that is cp mild, of the right cheek. 11:40 Eyes: Periorbital structures: swelling, on the below right eye, very mild, Pupils: equal, round, and reactive to light and accomodation, Extraocular movements: intact throughout, Conjunctiva: normal, no exudate, no injection, Sclera: no appreciated abnormality, Lids and lashes: appear normal, bilaterally. 11:40 ENT: External ear(s): are unremarkable, Ear canal(s): are normal, clear, TM's: bulging, is not appreciated, bilaterally, dullness, bilaterally, erythema, is not appreciated, bilaterally, Nose: is normal, Mouth: Lips: moist, Oral mucosa: pink and intact, moist, Posterior pharynx: Airway: no evidence of obstruction, patent, swelling, is not appreciated, erythema, is not appreciated, exudate, is not appreciated, Dental exam: abscess, is not appreciated, pain, that is mild, specifically in the upper right cuspid (#6), Voice: is normal. 11:40 Neck: ROM/movement: is normal, is supple, without pain, no range of motions limitations, no meningismus, Lymph nodes: no appreciated lymphadenopathy. 11:40 Chest/axilla: Inspection: normal. 11:40 Cardiovascular: Rate: normal, Rhythm: regular. 11:40 Respiratory: the patient does not display signs of respiratory distress, Respirations: normal, no use of accessory muscles, no retractions, labored breathing, is not present, Breath sounds: are clear throughout, no decreased breath sounds, no stridor, no wheezing. 11:40 Abdomen/GI: Inspection: abdomen appears normal, Palpation: abdomen is soft and non-tender, in all quadrants. 11:40 Skin: no rash present. Vital Signs: 10:45 BP 136 / 94; Pulse 63; Resp 18; Temp 98.1; Pulse Ox 99% on R/A; Weight 113.4 kg; Height ww 5 ft. 10 in. (177.80 cm); Pain 0/10; 10:45 Body Mass Index 35.87 (113.40 kg, 177.80 cm) ww MDM: 11:19 Patient medically screened. cp 14:45 Physician consultation: Duke Loomis DDS was contacted at 14:45, regarding patient's cp condition, and will see patient in office, tomorrow. 14:55 Data reviewed: vital signs, nurses notes, lab test result(s), radiologic studies, CT cp scan. Counseling: I had a detailed discussion with the patient and/or guardian regarding: the historical points, exam findings, and any diagnostic results supporting the discharge/admit diagnosis, lab results, radiology results, the need for outpatient follow up, for definitive care, maxillary/facial surgeon. 01/30 11:32 Order name: Basic Metabolic Panel 01/30 11:32 Order name: Blood Culture Adult (2) 01/30 11:32 Order name: CBC with Diff; Complete Time: 12:39 01/30 12:39 Interpretation: Normal except: WBC 11.90; BE% 79.2; LYM% 12.3; NEUT A 9.4. 01/30 11:32 Order name: LFT's; Complete Time: 14:37 01/30 14:38 Interpretation: Normal except: AST 7; BILIT 1.5; BILID 0.3; GLOB 4.1; A/G 0.9. 01/30 11:32 Order name: Lactate; Complete Time: 14:37 01/30 11:32 Order name: Procalcitonin; Complete Time: 14:37 01/30 14:38 Interpretation: Abnormal: Procalcitonin 0.08. 01/30 11:30 Order name: CT Facial Bones W/ Con \T\ Mpr; Complete Time: 14:37 01/30 14:41 Interpretation: Report reviewed. 01/30 11:32 Order name: Protime (+inr); Complete Time: 14:37 01/30 11:32 Order name: IV Saline Lock - Large Bore; Complete Time: 12:11 01/30 11:33 Order name: Basic Metabolic Panel; Complete Time: 14:37 EDNC 01/30 11:33 Order name: Blood Culture EDNC 01/30 12:41 Order name: Urine Dipstick-Ancillary; Complete Time: 14:37 EDNC 01/30 14:38 Interpretation: Normal except: UKET 1+; UBLD 2+; UPROT 1+. 01/30 11:32 Order name: Labs collected and sent; Complete Time: 12:11 01/30 11:32 Order name: O2 Per Protocol; Complete Time: 11:39 01/30 11:32 Order name: O2 Sat Monitoring; Complete Time: 11:39 cp 01/30 11:32 Order name: Urine Dipstick-Ancillary (obtain specimen); Complete Time: 15:52 cp Administered Medications: 12:11 Drug: Clindamycin 900 mg Route: IVPB; Infused Over: 30 mins; Site: left antecubital; jl7 12:45 Follow up: Response: No adverse reaction; IV Status: Completed infusion jl7 Disposition: 15:15 Chart complete. cp Disposition Summary: 01/30/21 15:00 Discharge Ordered Location: Home cp Problem: new cp Symptoms: have improved cp Condition: Stable cp Diagnosis - Cellulitis of face cp - Other specified disorders of teeth and supporting structures - Peridontal Abscess cp Followup: cp - With: Duke Loomis DDS - When: Tomorrow - Reason: Peridontal abscess Discharge Instructions: - Discharge Summary Sheet cp - Cellulitis, Adult cp Forms: - Medication Reconciliation Form cp - Thank You Letter cp - Antibiotic Education cp - Prescription Opioid Use cp Prescriptions: - Clindamycin HCl 300 mg Oral Capsule - take 1 capsule by ORAL route every 6 hours for 10 days; 40 capsule; Refills: 0, cp Product Selection Permitted - Diclofenac Sodium 75 mg Oral Tablet Sustained Release - take 1 tablet by ORAL route 2 times per day; 30 tablet; Refills: 0, Product cp Selection Permitted Addendum: 01/31/2021 18:48 Co-signature as Attending Physician, Geraldo Almaraz MD I agree with the assessment and c hu plan of care. Signatures: Dispatcher [employer] Geraldo Cruz MD MD cha Page, Corey, PA PA cp Laquita Gorman RN RN jl7 Manasa Riddle RN RN ww Corrections: (The following items were deleted from the chart) 01/30 11:39 11:32 Cardiac monitoring ordered. cp ap3
[2021-01-30 16:03] VITALS: BP 136/94; TEMP 98.1; O2SAT 99
== END 2021-01-30 15:52 | disposition home or self-care (01) ==
LOC: ER 10:10
DX: K04.7 Periapical abscess without sinus (principal); F17.210 Nicotine dependence, cigarettes, uncomplicated; Z88.5 Allergy status to narcotic agent
CPT/HCPCS: 36415; 70487; 76377; 80048; 80076; 81003; 83605; 84145; 85025; 85610; 87040; 96365; 99284

== ENCOUNTER 2021-02-28 17:41 | Emergency (ER) | payer OTHER ==
[2021-02-28] MEDS ORDERED: TETANUS & DIPHTHERIA TOX,ADULT 0.5 ML VIAL ONE (19:17)
[2021-02-28] MEDS ORDERED: LIDOCAINE 1% MPF 5 ML VIAL ONE (19:17)
--- NOTE | 2021-02-28 20:01 | ER ---
Nurse's Notes [facility] Name: Austin Mtz Age: 50 yrs Sex: Male : 1970 Arrival Date: 02/28/2021 Time: 17:44 Bed 9 Private MD: Diagnosis: Laceration without foreign body of foot Presentation: 02/28 18:01 Chief complaint: Patient states: Stepped on something at [employer] that went ww through his shoe and having right heel pain. Coronavirus screen: Vaccine status: Patient reports being unvaccinated. Client denies travel out of the [place] in the last 14 days. Ebola Screen: Patient negative for fever greater than or equal to 101.5 degrees Fahrenheit, and additional compatible Ebola Virus Disease symptoms Patient denies exposure to infectious person. Patient denies travel to an Ebola-affected area in the 21 days before illness onset. Initial Sepsis Screen: Does the patient meet any 2 criteria? No. Patient's initial sepsis screen is negative. Does the patient have a suspected source of infection? No. Patient's initial sepsis screen is negative. Risk Assessment: Do you want to hurt yourself or someone else? Patient reports no desire to harm self or others. Onset of symptoms was February 28, 2021. 18:01 Method Of Arrival: Ambulatory ww 18:01 Acuity: FREDIS 5 ww Triage Assessment: 18:03 General: Appears unkempt, Behavior is calm, cooperative, appropriate for age. Pain:. ww EENT: No deficits noted. No signs and/or symptoms were reported regarding the EENT system. Neuro: Level of Consciousness is awake, alert, obeys commands, Oriented to person, place, time, situation. Cardiovascular: No deficits noted. Respiratory: No deficits noted. Airway is patent Respiratory effort is even, unlabored, Respiratory pattern is regular, symmetrical. GI: No deficits noted. No signs and/or symptoms were reported involving the gastrointestinal system. Musculoskeletal: Circulation, motion, and sensation intact. 18:08 Injury Description: Laceration sustained to right foot. ww Historical: - Allergies: 18:03 Codeine; ww 18:03 Haloperidol; ww - PMHx: 18:03 bells palsy; Bipolar disorder; chronic back pain; Schizo-affective disorder; ww - Immunization history:: Adult Immunizations not immunized. - Social history:: Smoking status: Patient reports the use of cigarette tobacco products, smokes one-half pack cigarettes per day. Screenin:34 Abuse screen: Denies threats or abuse. Denies injuries from another. Nutritional ld1 screening: No deficits noted. Tuberculosis screening: No symptoms or risk factors identified. Fall Risk None identified. Assessment: 19:34 General: Appears in no apparent distress. comfortable, Behavior is calm, cooperative, ld1 appropriate for age. Pain: Complains of pain in ball of right foot Pain does not radiate. Pain currently is 7 out of 10 on a pain scale. Quality of pain is described as throbbing, Pain began suddenly, Is continuous. Neuro: Level of Consciousness is awake, alert, obeys commands, Oriented to person, place, time, situation. Cardiovascular: Capillary refill < 3 seconds Patient's skin is warm and dry. Respiratory: Airway is patent Respiratory effort is even, unlabored, Respiratory pattern is regular, symmetrical. GI: Abdomen is flat, non-distended. : No signs and/or symptoms were reported regarding the genitourinary system. EENT: No signs and/or symptoms were reported regarding the EENT system. Derm: No signs and/or symptoms reported regarding the dermatologic system. Injury Description: Laceration sustained to ball of right foot. Vital Signs: 18:01 BP 140 / 98; Pulse 86; Resp 18; Temp 97.3; Pulse Ox 99% ; Weight 99.79 kg; Height 5 ft. ww 10 in. (177.80 cm); Pain 0/10; 19:34 Pulse 92; Resp 18; Pulse Ox 100% on R/A; Pain 7/10; ld1 18:01 Body Mass Index 31.57 (99.79 kg, 177.80 cm) ww ED Course: 17:44 Patient arrived in ED. mr 18:03 Triage completed. ww 18:03 Arm band placed on right wrist. ww 18:45 [facility] kb 18:45 Geraldo Almaraz MD is Attending Physician. kb 19:19 Yany Freitas, [place] is Primary Nurse. ld1 19:34 Patient has correct armband on for positive identification. Bed in low position. Call ld1 light in reach. Side rails up X2. Pulse ox on. NIBP on. Door closed. Noise minimized. 19:34 Assist provider with laceration repair using sutures. Set up tray. Performed by Rosi MONROE. 19:43 Foot Right 3 View XRAY In Process Unspecified. EDMS 20:18 Wound care: to laceration located on right foot was dressed with. ab2 20:18 Patient did not have IV access during this emergency room visit. ab2 Administered Medications: 19:20 Drug: Tetanus-Diphtheria Toxoid Adult 0.5 ml {Upfitter: [employer]. Exp: ld1 07/03/2022. Lot #: [id number]. } Route: IM; Site: left deltoid; 19:20 Follow up: Response: No adverse reaction ld1 Outcome: 20:01 Discharge ordered by . kb 20:18 Discharged to home ambulatory. ab2 20:18 Condition: good 20:18 Discharge instructions given to patient, Instructed on discharge instructions, follow up and referral plans. medication usage, Demonstrated understanding of instructions, follow-up care, medications, Prescriptions given X 1. 20:18 Patient left the ED. ab2 Signatures: Dispatcher [employer] EDMS Rosi Garcia, COMPLAINT INVESTIGATIONS OFFICER-C COMPLAINT INVESTIGATIONS OFFICER-Alber HernandezaGenie Yany Freitas, RN RN ld1 Manasa Riddle, RN RN Shravan Mariscal ab2
--- NOTE | 2021-02-28 20:02 | EDPHYS ---
Physician Documentation [facility] Name: Austin Mtz Age: 50 yrs Sex: Male : 1970 Arrival Date: 02/28/2021 Time: 17:44 Bed 9 Private MD: ED Physician Geraldo Almaraz HPI: 02/28 19:57 This 50 yrs old Male presents to ER via Ambulatory with complaints of Foot Injury. kb 19:59 The patient presents with a laceration, 2 cm(s), irregular. The complaints affect the kb right foot. Context: The problem was sustained outdoors, resulted from the patient stepping on sharp metal, while wearing shoes, the patient can fully bear weight, the patient is able to ambulate. Onset: The symptoms/episode began/occurred just prior to arrival. Modifying factors: The symptoms are alleviated by nothing, the symptoms are aggravated by nothing. Associated signs and symptoms: The patient has no apparent associated signs or symptoms. Severity of symptoms: At their worst the symptoms were moderate, in the emergency department the symptoms are unchanged. The patient has not experienced similar symptoms in the past. The patient has not recently seen a physician. Pt reports he stepped on a piece of metal in a parking lot that went through his shoe. Laceration to ball of right foot. Historical: - Allergies: 18:03 Codeine; ww 18:03 Haloperidol; ww - PMHx: 18:03 bells palsy; Bipolar disorder; chronic back pain; Schizo-affective disorder; ww - Immunization history:: Adult Immunizations not immunized. - Social history:: Smoking status: Patient reports the use of cigarette tobacco products, smokes one-half pack cigarettes per day. ROS: 19:56 Constitutional: Negative for fever, chills, and weight loss. kb 19:56 Skin: Positive for laceration(s), of the ball of right foot. 19:56 All other systems are negative. Exam: 19:56 Constitutional: This is a well developed, well nourished patient who is awake, alert, kb and in no acute distress. Head/Face: Normocephalic, atraumatic. ENT: Moist Mucous membranes Respiratory: Respirations even and unlabored. No increased work of breathing. Talking in full sentences MS/ Extremity: Pulses equal, no cyanosis. Neurovascular intact. Full, normal range of motion. Neuro: Awake and alert, GCS 15, oriented to person, place, time, and situation. Moves all extremities. Normal gait. Psych: Awake, alert, with orientation to person, place and time. Behavior, mood, and affect are within normal limits. 19:56 Skin: injury, laceration(s), the wound is approximately 2 cm(s), of the ball of right foot, that can be described as clean, no foreign body, irregular, with mild bleeding. Vital Signs: 18:01 BP 140 / 98; Pulse 86; Resp 18; Temp 97.3; Pulse Ox 99% ; Weight 99.79 kg; Height 5 ft. ww 10 in. (177.80 cm); Pain 0/10; 19:34 Pulse 92; Resp 18; Pulse Ox 100% on R/A; Pain 7/10; ld1 18:01 Body Mass Index 31.57 (99.79 kg, 177.80 cm) ww Laceration: 19:58 Wound Repair of 2cm ( 0.8in ) subcutaneous laceration to ball of right foot. kb Irregularly shaped.. Distal neuro/vascular/tendon intact. Anesthesia: Wound infiltrated with 4 mls of 1% lidocaine. Wound prep: Extensive cleansing with hibiclenz by nurse by me, Wound irrigation with saline by nurse by me. Skin closed with 4 4-0 Prolene using simple sutures and sterile technique. Patient tolerated well. MDM: 18:46 Patient medically screened. kb 19:56 Data reviewed: vital signs, nurses notes. Data interpreted: Pulse oximetry: on room air kb is 100 %. Interpretation: normal. Counseling: I had a detailed discussion with the patient and/or guardian regarding: the historical points, exam findings, and any diagnostic results supporting the discharge/admit diagnosis, radiology results, the need for outpatient follow up, a family practitioner, to return to the emergency department if symptoms worsen or persist or if there are any questions or concerns that arise at home. 02/28 19:10 Order name: Foot Right 3 View XRAY; Complete Time: 20:08 kb 02/28 19:10 Order name: Dressing - Wound; Complete Time: 19:20 kb 02/28 19:10 Order name: Gloves, Sterile; Complete Time: 19:20 kb 02/28 19:10 Order name: Prolene, Sutures; Complete Time: 19:20 kb 02/28 19:10 Order name: Setup Suture Tray; Complete Time: 19:20 kb Administered Medications: 19:20 Drug: Tetanus-Diphtheria Toxoid Adult 0.5 ml {Rail Signal Worker: [employer]. Exp: ld1 07/03/2022. Lot #: [id number]. } Route: IM; Site: left deltoid; 19:20 Follow up: Response: No adverse reaction ld1 Disposition: 03/01 08:26 Co-signature as Attending Physician, Geraldo Almaraz MD I agree with the assessment and elvira plan of care. Disposition Summary: 02/28/21 20:01 Discharge Ordered Location: Home kb Condition: Stable kb Diagnosis - Laceration without foreign body of foot kb Followup: kb - With: Emergency Department - When: As needed - Reason: Worsening of condition Followup: kb - With: Private Physician - When: 2 - 3 days - Reason: Recheck today's complaints, Continuance of care, Re-evaluation by your physician Discharge Instructions: - Discharge Summary Sheet kb - Laceration Care, Adult, [id number] kb Forms: - Medication Reconciliation Form kb - Thank You Letter kb - Antibiotic Education kb - Prescription Opioid Use kb Prescriptions: - Cephalexin 500 mg Oral Capsule - take 1 capsule by ORAL route every 8 hours for 10 days; 30 capsule; Refills: 0, kb Product Selection Permitted Signatures: Dispatcher [employer] Rosi Mcneil, CPHT-C CPHT-Geraldo Brewer MD MD cha Dibbern, Lauren, RN RN ld1 Manasa Riddle RN RN ww
--- NOTE | 2021-02-28 20:07 | RAD REPORT ---
EXAM DESCRIPTION: RAD - Foot Right 3 View - 02/28/2021 7:42 pm CLINICAL HISTORY: Right foot pain FINDINGS: No fracture or dislocation is seen. Prominent spur extends off of the calcaneus. Radiopaque foreign body is not seen
[2021-02-28 20:25] VITALS: BP 140/98; TEMP 97.3
[2021-02-28 20:27] VITALS: O2SAT 100
== END 2021-02-28 20:18 | disposition home or self-care (01) ==
LOC: ER 17:41
PROC: 0JQQ0ZZ Repair Right Foot Subcutaneous Tissue and Fascia, Open Approach (ICD-10-PCS; principal; 2021-02-28)
DX: S91.311A Laceration without foreign body, right foot, initial encounter (principal); W26.8XXA Contact with other sharp object(s), not elsewhere classified, initial encounter; Y93.01 Activity, walking, marching and hiking; Y92.481 Parking lot as the place of occurrence of the external cause; Z88.5 Allergy status to narcotic agent; Z23 Encounter for immunization; F17.210 Nicotine dependence, cigarettes, uncomplicated
CPT/HCPCS: 90471; 90714; 99284

== ENCOUNTER 2021-08-06 01:05 | Emergency (ER) | payer OTHER ==
[2021-08-06] MEDS ORDERED: AMOX/K CLAV 875 MG TAB ONE (02:17)
[2021-08-06] MEDS ORDERED: IBUPROFEN 400 MG TAB ONE (02:17)
--- NOTE | 2021-08-06 02:30 | ER ---
Nurse's Notes [facility] Name: Austin Mtz Age: 51 yrs Sex: Male : 1970 Arrival Date: 08/06/2021 Time: 01:09 Bed 13 Private MD: Diagnosis: Dental caries, unspecified;Fracture of tooth (traumatic), sequela Presentation: 08/06 01:37 Chief complaint: Patient states: "I have a bad tooth and the pain it getting too much". as6 Coronavirus screen: At this time, the client does not indicate any symptoms associated with coronavirus-19. Ebola Screen: No symptoms or risks identified at this time. Initial Sepsis Screen: Does the patient meet any 2 criteria? No. Patient's initial sepsis screen is negative. Does the patient have a suspected source of infection? No. Patient's initial sepsis screen is negative. Risk Assessment: Do you want to hurt yourself or someone else? Patient reports no desire to harm self or others. Onset of symptoms is unknown. 01:37 Method Of Arrival: Ambulatory as6 01:37 Acuity: FREDIS 4 as6 Historical: - Allergies: 01:39 Codeine; as6 01:39 Haloperidol; as6 - Home Meds: 01:39 None [Active]; as6 - PMHx: 01:39 bells palsy; Bipolar disorder; chronic back pain; Schizo-affective disorder; as6 - Immunization history:: Client reports having NOT received the Covid vaccine. - Social history:: Smoking status: Patient reports the use of cigarette tobacco products, smokes one pack cigarettes per day. Screenin:49 Abuse screen: Denies threats or abuse. Nutritional screening: No deficits noted. bb Tuberculosis screening: No symptoms or risk factors identified. Fall Risk None identified. Assessment: 01:49 General: Appears in no apparent distress. Behavior is calm, cooperative. Pain: bb Complains of pain in mouth. Neuro: Level of Consciousness is awake, alert, obeys commands, Oriented to person, place, time, situation. Cardiovascular: Capillary refill < 3 seconds Patient's skin is warm and dry. Respiratory: Respiratory effort is even, unlabored, Respiratory pattern is regular, Breath sounds are clear bilaterally. GI: Abdomen is non-distended, Bowel sounds present X 4 quads. Abd is soft and non tender X 4 quads. EENT: Dental caries noted in upper left third molar (#16). Derm: Skin is intact, Skin is pink, warm \\T\\ dry. 02:34 Reassessment: Patient is alert, oriented x 3, equal unlabored respirations, skin bb warm/dry/pink. pt verbalized understanding of and agrees to plan of care discharge instructions given pt ambulated with steady gait to exit. Vital Signs: 01:37 BP 119 / 82; Pulse 65; Resp 18; Temp 98.4(O); Pulse Ox 98% on R/A; Weight 72.57 kg (R); as6 Height 5 ft. 10 in. (177.80 cm) (R); Pain 0/10; 02:14 BP 105 / 61; Pulse 53; Resp 16 S; Pulse Ox 97% on R/A; bb 01:37 Body Mass Index 22.96 (72.57 kg, 177.80 cm) as6 ED Course: 01:09 Patient arrived in ED. bp1 01:34 Patient's name was called from ER [facility]. No response. bb 01:39 Triage completed. as6 01:39 Arm band placed on. as6 01:40 Sergey Kowalski MD is Attending Physician. mh7 01:49 Vianca Romero RN is Primary Nurse. bb 01:49 Patient has correct armband on for positive identification. Bed in low position. Call bb light in reach. Side rails up X 1. Pulse ox on. NIBP on. 02:27 Antonio Rosario DDS is Referral Physician. mh7 02:35 No provider procedures requiring assistance completed. Patient did not have IV access bb during this emergency room visit. Administered Medications: 02:14 Drug: Ibuprofen 800 mg Route: PO; bb 02:34 Follow up: Response: No adverse reaction bb 02:14 Drug: Augmentin (Amoxicillin-Clavulanate) 875 mg Route: PO; bb 02:34 Follow up: Response: No adverse reaction bb Outcome: 02:28 Discharge ordered by . mh7 02:35 Discharged to home ambulatory. bb 02:35 Condition: stable 02:35 Discharge instructions given to patient, Instructed on discharge instructions, follow up and referral plans. medication usage, Demonstrated understanding of instructions, follow-up care, medications, Prescriptions given X 2. 02:36 Patient left the ED. bb Signatures: Vianca Romero RN RN bb Mere Santacruz Maurice, MD MD mh7 Dash Troy RN RN as6
--- NOTE | 2021-08-06 02:30 | EDPHYS ---
Physician Documentation [facility] Name: Austin Mtz Age: 51 yrs Sex: Male : 1970 Arrival Date: 08/06/2021 Time: 01:09 Bed 13 Private MD: ED Physician Sergey Kowalski HPI: 08/06 02:00 This 51 yrs old Male presents to ER via Ambulatory with complaints of Insect Bite, mh7 Other, Toothache, - broken. 02:00 The patient presents with broken tooth/teeth. The problem is located in the upper left mh7 third molar (#16). Onset: The symptoms/episode began/occurred 6 week(s) ago. Duration: The symptoms are intermittent, with no pattern. Modifying factors: The symptoms are alleviated by nothing, the symptoms are aggravated by chewing, cold fluids. Associated signs and symptoms: Pertinent negatives: anorexia, chills, dysphagia, fever, inability to eat, nausea, redness in area, swelling, vomiting. Severity of symptoms: At their worst the symptoms were moderate, 7 day(s) ago, in the emergency department the symptoms are unchanged. 02:00 Also complains of possible insect bite toe right big toe. mh7 Historical: - Allergies: 01:39 Codeine; as6 01:39 Haloperidol; as6 - Home Meds: 01:39 None [Active]; as6 - PMHx: 01:39 bells palsy; Bipolar disorder; chronic back pain; Schizo-affective disorder; as6 - Immunization history:: Client reports having NOT received the Covid vaccine. - Social history:: Smoking status: Patient reports the use of cigarette tobacco products, smokes one pack cigarettes per day. ROS: 02:00 Constitutional: Negative for fever, chills, and weight loss, Eyes: Negative for injury, mh7 pain, redness, and discharge, Neck: Negative for injury, pain, and swelling, Cardiovascular: Negative for chest pain, palpitations, and edema, Respiratory: Negative for shortness of breath, cough, wheezing, and pleuritic chest pain, Abdomen/GI: Negative for abdominal pain, nausea, vomiting, diarrhea, and constipation, Back: Negative for injury and pain, : Negative for injury, bleeding, discharge, and swelling, MS/Extremity: Negative for injury and deformity, Neuro: Negative for headache, weakness, numbness, tingling, and seizure, Psych: Negative for depression, anxiety, suicide ideation, homicidal ideation, and hallucinations, Allergy/Immunology: Negative for hives, rash, and allergies, Endocrine: Negative for neck swelling, polydipsia, polyuria, polyphagia, and marked weight changes, Hematologic/Lymphatic: Negative for swollen nodes, abnormal bleeding, and unusual bruising. Exam: 02:00 Constitutional: This is a well developed, well nourished patient who is awake, alert, mh7 and in no acute distress. Head/Face: Normocephalic, atraumatic. Eyes: Pupils equal round and reactive to light, extra-ocular motions intact. Lids and lashes normal. Conjunctiva and sclera are non-icteric and not injected. Cornea within normal limits. Periorbital areas with no swelling, redness, or edema. 02:00 Neck: Trachea midline, no thyromegaly or masses palpated, and no cervical lymphadenopathy. Supple, full range of motion without nuchal rigidity, or vertebral point tenderness. No Meningismus. Chest/axilla: Normal chest wall appearance and motion. Nontender with no deformity. No lesions are appreciated. Cardiovascular: Regular rate and rhythm with a normal S1 and S2. No gallops, murmurs, or rubs. Normal PMI, no JVD. No pulse deficits. Respiratory: Lungs have equal breath sounds bilaterally, clear to auscultation and percussion. No rales, rhonchi or wheezes noted. No increased work of breathing, no retractions or nasal flaring. Abdomen/GI: Soft, non-tender, with normal bowel sounds. No distension or tympany. No guarding or rebound. No evidence of tenderness throughout. Back: No spinal tenderness. No costovertebral tenderness. Full range of motion. Skin: Warm, dry with normal turgor. Normal color with no rashes, no lesions, and no evidence of cellulitis. MS/ Extremity: Pulses equal, no cyanosis. Neurovascular intact. Full, normal range of motion. Neuro: Awake and alert, GCS 15, oriented to person, place, time, and situation. Cranial nerves II-XII grossly intact. Motor strength 5/5 in all extremities. Sensory grossly intact. Cerebellar exam normal. Normal gait. Psych: Awake, alert, with orientation to person, place and time. Behavior, mood, and affect are within normal limits. 02:00 ENT: Posterior pharynx: is normal, airway is patent, Dental exam: abscess, is not appreciated, cellulitis, is not appreciated, dental caries, that is moderate, specifically in the upper left third molar (#16), fractured teeth are noted, specifically the upper left third molar (#16), gum swelling, not appreciated, malocclusion, is not appreciated, Voice: is normal. Vital Signs: 01:37 BP 119 / 82; Pulse 65; Resp 18; Temp 98.4(O); Pulse Ox 98% on R/A; Weight 72.57 kg (R); as6 Height 5 ft. 10 in. (177.80 cm) (R); Pain 0/10; 02:14 BP 105 / 61; Pulse 53; Resp 16 S; Pulse Ox 97% on R/A; bb 01:37 Body Mass Index 22.96 (72.57 kg, 177.80 cm) as6 MDM: 02:26 Differential diagnosis: dental caries, gingivitis, dental abscess, pericoronitis, mh7 aphthous ulcers, acute necrotizing ulcerative gingivitis, gingivostomatitis, insect bite. Data reviewed: vital signs, nurses notes. Data interpreted: Pulse oximetry: on room air is 97 %. Interpretation: normal. Counseling: I had a detailed discussion with the patient and/or guardian regarding: the historical points, exam findings, and any diagnostic results supporting the discharge/admit diagnosis, the need for outpatient follow up, a dentist, to return to the emergency department if symptoms worsen or persist or if there are any questions or concerns that arise at home. Response to treatment: the patient's symptoms have markedly improved after treatment. 02:28 Patient medically screened. [facility] Administered Medications: 02:14 Drug: Ibuprofen 800 mg Route: PO; bb 02:34 Follow up: Response: No adverse reaction bb 02:14 Drug: Augmentin (Amoxicillin-Clavulanate) 875 mg Route: PO; bb 02:34 Follow up: Response: No adverse reaction bb Disposition Summary: 08/06/21 02:28 Discharge Ordered Location: Home [facility] Problem: new mh7 Symptoms: have improved mh Condition: Stable [facility] Diagnosis - Dental caries, unspecified mh7 - Fracture of tooth (traumatic), sequela mh7 Followup: mh7 - With: Private Physician - When: 1 - 2 days - Reason: Worsening of condition, Recheck today's complaints, Continuance of care, Re-evaluation by your physician Followup: [facility] - With: Antonio Rosario DDS - When: 1 - 2 days - Reason: Worsening of condition, Recheck today's complaints Discharge Instructions: - Discharge Summary Sheet [facility] - Tooth Injuries, [id number] [facility] - Dental Caries, Adult, [id number] [facility] Forms: - Medication Reconciliation Form [facility] - Thank You Letter [facility] - Antibiotic Education [facility] - Prescription Opioid Use [facility] Prescriptions: - Augmentin 500-125 mg Oral Tablet - take 1 tablet by ORAL route every 8 hours for 10 days; 30 tablet; Refills: 0, [facility] Product Selection Permitted - Ibuprofen 800 mg Oral Tablet - take 1 tablet by ORAL route every 8 hours As needed take with food; 15 tablet; [facility] Refills: 0, Product Selection Permitted Signatures: Vianca Romero RN RN bb Sergey Kowalski MD MD [facility] Dash Troy RN RN as6
[2021-08-06 02:41] VITALS: TEMP 98.4
[2021-08-06 02:42] VITALS: BP 105/61; O2SAT 97
== END 2021-08-06 02:36 | disposition home or self-care (01) ==
LOC: ER 01:05
DX: K02.9 Dental caries, unspecified (principal); S02.5XXS Fracture of tooth (traumatic), sequela; Z72.0 Tobacco use
CPT/HCPCS: 99283

== ENCOUNTER 2021-08-30 18:16 | Emergency (ER) | payer OTHER ==
--- NOTE | 2021-08-30 19:34 | ER ---
Nurse's Notes [facility] Name: Austin Mtz Age: 51 yrs Sex: Male : 1970 Arrival Date: 08/30/2021 Time: 18:18 Bed 12 Private MD: Diagnosis: Other specified disorders of teeth and supporting structures Presentation: 08/30 18:51 Chief complaint: Patient states: wound to l foot noted today. Coronavirus screen: [facility] Vaccine status: Patient reports being unvaccinated. Ebola Screen: Patient negative for fever greater than or equal to 101.5 degrees Fahrenheit, and additional compatible Ebola Virus Disease symptoms Patient denies exposure to infectious person. Patient denies travel to an Ebola-affected area in the 21 days before illness onset. 18:51 Method Of Arrival: Ambulatory [facility] 19:15 Initial Sepsis Screen: Does the patient meet any 2 criteria? No. Patient's initial as6 sepsis screen is negative. Does the patient have a suspected source of infection? No. Patient's initial sepsis screen is negative. Risk Assessment: Do you want to hurt yourself or someone else? Patient reports no desire to harm self or others. Onset of symptoms is unknown. 19:15 Acuity: FREDIS 4 as6 Triage Assessment: 18:55 Bite description: bite sustained to left foot is superficial, by an unknown animal, [facility] animal information: vaccination(s) is unknown. General: Appears in no apparent distress. Behavior is calm, cooperative. Pain: Denies pain. Historical: - Allergies: 18:53 Codeine; [facility] 18:53 Haloperidol; [facility] - PMHx: 18:53 bells palsy; Bipolar disorder; chronic back pain; Schizo-affective disorder; [facility] - Immunization history:: Adult Immunizations unknown. - Social history:: Smoking status: Patient reports the use of cigarette tobacco products, denies chronic smoking, but will smoke occasionally, Patient uses alcohol, street drugs, marijuana. Screenin:01 Abuse screen: Denies threats or abuse. Nutritional screening: No deficits noted. jb4 Tuberculosis screening: No symptoms or risk factors identified. Fall Risk None identified. Assessment: 20:01 Reassessment: Patient appears in no apparent distress at this time. Patient and/or jb4 family updated on plan of care and expected duration. Pain level reassessed. Patient is alert, oriented x 3, equal unlabored respirations, skin warm/dry/pink. Vital Signs: 18:51 BP 112 / 83; Pulse 58; Resp 17; Temp 98.3; Pulse Ox 97% ; Weight 104.33 kg; Height 5 [facility] ft. 8 in. (172.72 cm); Pain 1/10; 18:51 Body Mass Index 34.97 (104.33 kg, 172.72 cm) 6 ED Course: 18:18 Patient arrived in ED. as 18:18 [facility]C [facility]. kb 18:18 Paul Hatfield DO is Attending Physician. kb 18:55 Arm band placed on left wrist. jh6 19:16 Triage completed. as6 20:01 Virgilio Verdin, RN is Primary Nurse. jb4 20:01 Patient has correct armband on for positive identification. Bed in low position. Call jb4 light in reach. Side rails up X 1. 20:01 No provider procedures requiring assistance completed. Patient did not have IV access jb4 during this emergency room visit. Administered Medications: No medications were administered Medication: 20:01 VIS not applicable for this client. jb4 Outcome: 19:33 Discharge ordered by MD. kb 20:01 Discharged to home ambulatory. jb4 20:01 Condition: stable 20:01 Discharge instructions given to patient, Instructed on discharge instructions, follow up and referral plans. medication usage, Demonstrated understanding of instructions, follow-up care, medications, Prescriptions given X 1. 20:02 Patient left the ED. jb4 Signatures: Rosi Garcia FNP-C FNP-Judith Sutherland as Virgilio Verdin, RN RN jb4 Dash Troy, [place] HASSAN as6 Kisha Moore RN RN 6
--- NOTE | 2021-08-30 19:34 | EDPHYS ---
Physician Documentation [facility] Name: Austin Mtz Age: 51 yrs Sex: Male : 1970 Arrival Date: 08/30/2021 Time: 18:18 Bed 12 Private MD: ED Physician Paul Hatfield HPI: 08/31 00:26 This 51 yrs old Male presents to ER via Ambulatory with complaints of Insect Bite. kb 00:26 The patient presents with pain, redness. The problem is located in the lower right kb cuspid (#27) and lower right lateral incisor (#26) and lower right central incisor (#25) and lower left central incisor (#24) and lower left lateral incisor (#23) and lower left cuspid (#22). Duration: The symptoms are continuous. Modifying factors: The symptoms are alleviated by nothing, the symptoms are aggravated by nothing. Associated signs and symptoms: Pertinent positives: pain, redness in area. Severity of symptoms: At their worst the symptoms were moderate, in the emergency department the symptoms are unchanged. The patient has not experienced similar symptoms in the past. The patient has not recently seen a physician. Pt reports dental pain and redness to bottom front teeth. States he believes there is an infection there and needs antibiotics. Also reports a bite on the top of his left foot and wanted to make sure it wasn't infected. Historical: - Allergies: 08/30 18:53 Codeine; jh6 18:53 Haloperidol; jh6 - PMHx: 18:53 bells palsy; Bipolar disorder; chronic back pain; Schizo-affective disorder; jh6 - Immunization history:: Adult Immunizations unknown. - Social history:: Smoking status: Patient reports the use of cigarette tobacco products, denies chronic smoking, but will smoke occasionally, Patient uses alcohol, street drugs, marijuana. ROS: 08/31 00:24 Constitutional: Negative for fever, chills, and weight loss. kb ENT: Positive for dental pain. Skin: Positive for erythema, of the dorsum of left foot. All other systems are negative. Exam: 00:24 Constitutional: This is a well developed, well nourished patient who is awake, alert, kb and in no acute distress. Head/Face: Normocephalic, atraumatic. ENT: Moist Mucous membranes Cardiovascular: Regular rate and rhythm with a normal S1 and S2. No gallops, murmurs, or rubs. No pulse deficits. Respiratory: Respirations even and unlabored. No increased work of breathing. Talking in full sentences MS/ Extremity: Pulses equal, no cyanosis. Neurovascular intact. Full, normal range of motion. Neuro: Awake and alert, GCS 15, oriented to person, place, time, and situation. Moves all extremities. Normal gait. Psych: Awake, alert, with orientation to person, place and time. Behavior, mood, and affect are within normal limits. 00:24 ENT: Dental exam: pain, that is moderate, specifically in the lower left cuspid (#22), lower left lateral incisor (#23), lower left central incisor (#24), lower right central incisor (#25), lower right lateral incisor (#26) and lower right cuspid (#27). 00:24 Skin: injury, abrasion(s), very small abrasion noted, of the dorsum of left foot. Vital Signs: 08/30 18:51 BP 112 / 83; Pulse 58; Resp 17; Temp 98.3; Pulse Ox 97% ; Weight 104.33 kg; Height 5 jh6 ft. 8 in. (172.72 cm); Pain 1/10; 18:51 Body Mass Index 34.97 (104.33 kg, 172.72 cm) jh6 MDM: 19:26 Patient medically screened. kb 08/31 00:23 Data reviewed: vital signs, nurses notes. Data interpreted: Pulse oximetry: on room air kb is 97 %. Interpretation: normal. Counseling: I had a detailed discussion with the patient and/or guardian regarding: the historical points, exam findings, and any diagnostic results supporting the discharge/admit diagnosis, the need for outpatient follow up, a dentist, to return to the emergency department if symptoms worsen or persist or if there are any questions or concerns that arise at home. Administered Medications: No medications were administered Disposition: 09:44 Co-signature as Attending Physician, Paul Hatfield DO I was immediately available on-site ms3 in the Emergency Department for consultation in the care of the patient.. Disposition Summary: 08/30/21 19:33 Discharge Ordered Location: Home kb Condition: Stable kb Diagnosis - Other specified disorders of teeth and supporting structures kb Followup: kb - With: Emergency Department - When: As needed - Reason: Worsening of condition Followup: kb - With: Private Physician - When: 2 - 3 days - Reason: Recheck today's complaints, Continuance of care, Re-evaluation by your physician Discharge Instructions: - Discharge Summary Sheet kb - Dental Pain, [id number] kb Forms: - Medication Reconciliation Form kb - Thank You Letter kb - Antibiotic Education kb - Prescription Opioid Use kb Prescriptions: - Augmentin 875-125 mg Oral Tablet - take 1 tablet by ORAL route every 12 hours for 10 days; 20 tablet; Refills: 0, kb Product Selection Permitted Signatures: Rosi Garcia, MABEL DIEGO-Paul Oconnell DO DO ms3 Kisha Moore RN RN jh6
[2021-08-30 20:20] VITALS: BP 112/83; TEMP 98.3; O2SAT 97
== END 2021-08-30 20:02 | disposition home or self-care (01) ==
LOC: ER 18:16
DX: K08.89 Other specified disorders of teeth and supporting structures (principal); F17.210 Nicotine dependence, cigarettes, uncomplicated; Z88.5 Allergy status to narcotic agent

== ENCOUNTER 2021-09-30 21:55 | Emergency (ER) | payer OTHER ==
[2021-09-30 23:02] LABS: Absolute Lymphocytes (CBC) 2.3 K/uL (0.7-4.9); Lymphocytes % 27.7 % (15.3-44.8); MCV 86.5 fL (80-100); MPV 8.7 fL (7.6-11.3); RBC Red Blood Cell Count 4.85 M/uL (4.33-5.43)
[2021-09-30] MEDS ORDERED: Ringers Lactate 1,000 ML IV ONE (23:13)
[2021-09-30 23:27] LABS: Potassium 3.8 mmol/L (3.5-5.1); Troponin High Sensitivity 6.1 pg/mL (<58.9)
[2021-10-01 00:40] LABS: Blood Morphology Comment NOT SEEN (NOT SEEN); Platelet Estimate ADEQ
--- NOTE | 2021-10-01 00:55 | ER ---
Nurse's Notes [facility] Name: Austin Mtz Age: 51 yrs Sex: Male : 1970 Arrival Date: 09/30/2021 Time: 21:58 Bed 23 Private MD: Diagnosis: Coronavirus infection, unspecified Presentation: 09/30 22:06 Chief complaint: Sinus congestion and dizziness upon waking from nap at 1730. Dizziness hb is worse with head movement. Denies numbness/tingling. VAN NEGATIVE. Coronavirus screen: At this time, the client does not indicate any symptoms associated with coronavirus-19. Ebola Screen: No symptoms or risks identified at this time. Initial Sepsis Screen: Does the patient meet any 2 criteria? No. Patient's initial sepsis screen is negative. Does the patient have a suspected source of infection? No. Patient's initial sepsis screen is negative. Risk Assessment: Do you want to hurt yourself or someone else? Patient reports no desire to harm self or others. Onset of symptoms was September 30, 2021. 22:06 Method Of Arrival: Ambulatory hb 22:06 Acuity: FREDIS 3 hb Historical: - Allergies: 22:09 Codeine; hb 22:09 Haloperidol; hb - PMHx: 22:09 bells palsy; Bipolar disorder; chronic back pain; Schizo-affective disorder; hb - Immunization history:: Adult Immunizations up to date. - Social history:: Smoking status: Patient denies any tobacco usage or history of. Screenin:06 Abuse screen: Denies threats or abuse. Nutritional screening: No deficits noted. ja4 Tuberculosis screening: No symptoms or risk factors identified. Fall Risk None identified. IV access (20 points). Assessment: 23:06 General: Appears in no apparent distress. Behavior is calm, cooperative, appropriate ja4 for age. Pain: Complains of pain in right ear Pain currently is 2 out of 10 on a pain scale. Neuro: Reports dizziness, since today. Vital Signs: 22:06 BP 130 / 81; Pulse 64; Resp 16; Temp 98.2; Pulse Ox 98% on R/A; Weight 104.33 kg; hb Height 5 ft. 10 in. (177.80 cm); Pain 0/10; 10/01 01:09 BP 103 / 69; Pulse 50; Resp 16; Pulse Ox 97% on R/A; ja4 09/30 22:06 Body Mass Index 33.00 (104.33 kg, 177.80 cm) hb [place] Coma Score: 09/30 23:06 Eye Response: spontaneous(4). Verbal Response: oriented(5). Motor Response: obeys ja4 commands(6). Total: 15. ED Course: 21:58 Patient arrived in ED. bp1 22:09 Triage completed. hb 22:09 Silvio Cueva PA is PHCP. [facility] 22:09 Villa Roman MD is Attending Physician. [facility] 22:09 Arm band placed on. hb 22:40 Abhijit Valdivia, [place] is Primary Nurse. ja4 22:55 Inserted saline lock: 20 gauge in right hand, using aseptic technique. Blood collected. 4 23:02 SARS-COV-2 RT PCR (Document "Date of Onset" if Symptomatic) Sent. ja4 23:03 Basic Metabolic Panel Sent. ja4 23:03 CBC with Diff Sent. ja4 23:03 Troponin HS Sent. ja4 23:06 Patient has correct armband on for positive identification. Bed in low position. Call ja light in reach. Side rails up X 1. Side rails up X2. 23:06 No provider procedures requiring assistance completed. ja4 23:49 CT Head Brain wo Cont In Process Unspecified. EDMA 10/01 01:09 IV discontinued, intact, bleeding controlled, No redness/swelling at site. Pressure ja4 dressing applied. Administered Medications: 09/30 23:05 Drug: Lactated Ringers Solution 1000 ml Route: IV; Rate: 1000 bolus; Site: right hand; ja4 10/01 01:00 Drug: Decadron - Dexamethasone 10 mg Route: IVP; Site: right hand; ja4 Medication: 09/30 23:06 VIS not applicable for this client. ja4 Outcome: 10/01 00:55 Discharge ordered by . katerin 01:09 Discharged to home ambulatory. 4 01:09 Condition: stable 01:09 Discharge instructions given to patient, Instructed on discharge instructions, follow up and referral plans. medication usage, Demonstrated understanding of instructions, follow-up care, medications. 01:11 Patient left the ED. [facility] Signatures: Dispatcher [employer] [facility] Silvio Cueva PA PA jmm Baxter, Heather, RN RN hb Mere Santacruz Jeremy, RN RN ja4 Corrections: (The following items were deleted from the chart) 09/30 22:15 22:06 Chief complaint: Sinus congestion and dizziness since this afternoon. Denies hb numbness/tingling. VAN NEGATIVE. hb
--- NOTE | 2021-10-01 00:55 | EDPHYS ---
Physician Documentation [facility] Name: Austin Mtz Age: 51 yrs Sex: Male : 1970 Arrival Date: 09/30/2021 Time: 21:58 Bed 23 Private MD: ED Physician Villa Roman HPI: 10/01 00:44 This 51 yrs old Male presents to ER via Ambulatory with complaints of Dizziness, Sinus jmm Congestion. 00:44 Onset: The symptoms/episode began/occurred gradually, 2 day(s) ago. Modifying factors: jmm The symptoms are alleviated by nothing. the symptoms are aggravated by nothing. 00:52 Associated signs and symptoms: The patient has no apparent associated signs or jmm symptoms. Is a 51-year-old male with a history of bipolar, schizoaffective that presents emerged part with complaints of sinus congestion, dizziness, denies shortness of breath or cough. Denies vomiting.. Historical: - Allergies: 09/30 22:09 Codeine; hb 22:09 Haloperidol; hb - PMHx: 22:09 bells palsy; Bipolar disorder; chronic back pain; Schizo-affective disorder; hb - Immunization history:: Adult Immunizations up to date. - Social history:: Smoking status: Patient denies any tobacco usage or history of. ROS: 10/01 00:52 Constitutional: Positive for chills. jmm ENT: Positive for sinus pain. Respiratory: Negative for cough. All other systems are negative. Exam: 00:52 Constitutional: This is a well developed, well nourished patient who is awake, alert, jmm and in no acute distress. Head/Face: atraumatic. Eyes: EOMI, no conjunctival erythema appreciated 00:52 Neck: Trachea midline, Supple Chest/axilla: Normal chest wall appearance and motion. 00:52 Back: Normal ROM Skin: General appearance color normal MS/ Extremity: Moves all extremities, no obvious deformities appreciated, no edema noted to the lower extremities Neuro: Awake and alert Psych: Behavior is normal, Mood is normal, Patient is cooperative and pleasant 00:52 ENT: TM's: erythema, that is moderate, on the left. 00:52 Cardiovascular: Rate: normal, Rhythm: regular. 00:52 Respiratory: the patient does not display signs of respiratory distress, Respirations: normal, Breath sounds: are clear throughout. 00:52 Abdomen/GI: Inspection: abdomen appears normal, Bowel sounds: normal, Palpation: abdomen is soft and non-tender, in all quadrants. Vital Signs: 09/30 22:06 BP 130 / 81; Pulse 64; Resp 16; Temp 98.2; Pulse Ox 98% on R/A; Weight 104.33 kg; hb Height 5 ft. 10 in. (177.80 cm); Pain 0/10; 10/01 01:09 BP 103 / 69; Pulse 50; Resp 16; Pulse Ox 97% on R/A; ja4 09/30 22:06 Body Mass Index 33.00 (104.33 kg, 177.80 cm) hb [place] Coma Score: 09/30 23:06 Eye Response: spontaneous(4). Verbal Response: oriented(5). Motor Response: obeys ja4 commands(6). Total: 15. MDM: 22:27 Patient medically screened. [facility] 10/01 00:52 Data reviewed: vital signs, nurses notes. Counseling: I had a detailed discussion with [facility] the patient and/or guardian regarding: the historical points, exam findings, and any diagnostic results supporting the discharge/admit diagnosis, the need for outpatient follow up, to return to the emergency department if symptoms worsen or persist or if there are any questions or concerns that arise at home. ED course: Patient is alert nontoxic in appearance NAD. Positive for coronavirus. Imaging studies otherwise negative. Patient advised follow-up PCP and otherwise given strict return precautions. Patient understood and agrees plan of care.. 09/30 22:28 Order name: Basic Metabolic Panel; Complete Time: 23:31 [facility] 09/30 22:28 Order name: CBC with Diff; Complete Time: 00:44 [facility] 09/30 22:28 Order name: Troponin HS; Complete Time: 23:31 [facility] 09/30 22:29 Order name: SARS-COV-2 RT PCR (Document "Date of Onset" if Symptomatic); Complete Time: [facility] 00:02 09/30 22:29 Order name: CT Head Brain wo Cont [facility] 09/30 23:10 Order name: Manual Differential; Complete Time: 00:44 [facility] 09/30 22:28 Order name: EKG; Complete Time: 22:29 [facility] 09/30 22:28 Order name: Cardiac monitoring; Complete Time: 23:02 [facility] 09/30 22:28 Order name: EKG - Nurse/Tech; Complete Time: 23:02 [facility] 09/30 22:28 Order name: IV Saline Lock; Complete Time: 23:02 [facility] 09/30 22:28 Order name: Labs collected and sent; Complete Time: 23:02 [facility] 09/30 22:28 Order name: O2 Per Protocol; Complete Time: 23:02 [facility] 09/30 22:28 Order name: O2 Sat Monitoring; Complete Time: 23: [facility] Administered Medications: 09/30 23:05 Drug: Lactated Ringers Solution 1000 ml Route: IV; Rate: 1000 bolus; Site: right hand; ja4 10/01 01:00 Drug: Decadron - Dexamethasone 10 mg Route: IVP; Site: right hand; ja4 Disposition: 02:36 Co-signature as Attending Physician, Villa Roman MD I agree with the assessment and kdr plan of care. Disposition Summary: 10/01/21 00:55 Discharge Ordered Location: Home [facility] Condition: Stable [facility] Diagnosis - Coronavirus infection, unspecified [facility] Followup: [facility] - With: Private Physician - When: 2 - 3 days - Reason: Recheck today's complaints, Continuance of care, Re-evaluation by your physician Discharge Instructions: - Discharge Summary Sheet [facility] - COVID-19 [facility] Forms: - Medication Reconciliation Form [facility] - Thank You Letter [facility] - Antibiotic Education [facility] - Prescription Opioid Use [facility] Signatures: Dispatcher [employer] Villa Leggett MD MD kdr Mickail, Joel, PA PA [facility] Katrin Bragg, Abhijit Foley RN, RN RN ja4
[2021-10-01] MEDS ORDERED: dexAMETHasone 10 MG/ML VIAL ONE (01:05)
[2021-10-01 05:17] VITALS: TEMP 98.2
[2021-10-01 05:20] VITALS: BP 103/69; O2SAT 97
--- NOTE | 2021-10-02 08:10 | EKG ---
Test Date: 2021-09-30 Test Time: 23:02:49 Manager Compliance: KAYLEE MEASUREMENT RESULTS: Intervals: Rate: 49 NE: 166 QRSD: 124 QT: 440 QTc: 397 [place]: P: 47 NE: 166 QRS: -37 T: 16 INTERPRETIVE STATEMENTS: Marked sinus bradycardia Left axis deviation Nonspecific intraventricular conduction delay Abnormal ECG Compared to ECG 07/24/2017 08:30:57 Left-axis deviation now present Intraventricular conduction delay now present Electronically Signed On 10-02-21 08:06:38 CDT by Aleks Trimble
--- NOTE | 2021-10-02 11:50 | RAD REPORT ---
EXAM DESCRIPTION: CT - Head Brain Wo Cont - 10/01/2021 3:33 am CLINICAL HISTORY: Dizziness. TECHNIQUE: Noncontrast CT through the head was performed. Axial, coronal, and sagittal reconstructio ns were created and sent to PACS. This exam was performed according to our departmental dose-optimiza tion program which includes use of Automated Exposure Control, adjustment of the mA and/or kV accordi ng to patient size and/or use of iterative reconstruction technique. COMPARISON: None. FINDINGS: There is diffuse age-appropriate atrophy throughout the brain parenchyma. Mild periventric ular white matter changes are present, and there is mild ex vacuo dilatation of the ventricular syste m. There is no intra-axial or extra-axial bleed. There is no mass or mass effect. Mild mucosal thickening in the ethmoid air cells. The remaining visualized paranasal sinuses and mast oid air cells are patent. No acute fracture is identified. IMPRESSION: No acute intracranial abnormality identified. Mild chronic age-related and microvascular ischemic changes. Electronically signed by: Yodit Esqueda MD 10/01/2021 12:05 AM CDT Due to temporary technical issues with the PACS/Fluency reporting system, reports are being signed by the in house radiologists without review as a courtesy to insure prompt reporting. The interpreting radiologist is fully responsible for the content of the report.
== END 2021-10-01 01:11 | disposition home or self-care (01) ==
LOC: ER 21:55
DX: U07.1 COVID-19 (principal); F25.9 Schizoaffective disorder, unspecified; Z88.5 Allergy status to narcotic agent
CPT/HCPCS: 93005; 85025; 80048; 36415; 84484; 70450; 96374; 99284; U0003; J1100; J7120

== ENCOUNTER 2021-10-24 00:32 | Emergency (ER) | payer OTHER, SELFPAY ==
[2021-10-24] MEDS ORDERED: ACETAMINOPHEN 500 MG TAB ONE (01:37)
--- NOTE | 2021-10-24 02:33 | ER ---
Nurse's Notes [facility] Name: Austin Mtz Age: 51 yrs Sex: Male : 1970 Arrival Date: 10/24/2021 Time: 00:47 Bed 15 Private MD: Diagnosis: Sprain of ankle-Left;Sprain of ribs;Sprain of ribs, initial encounter-Left Presentation: 10/24 00:50 Chief complaint: Patient states: Left side fall on my ribs. Coronavirus screen: Vaccine aa9 status: Patient reports receiving the 2nd dose of the covid vaccine. Ebola Screen: No symptoms or risks identified at this time. Initial Sepsis Screen: Does the patient meet any 2 criteria? No. Patient's initial sepsis screen is negative. Does the patient have a suspected source of infection? No. Patient's initial sepsis screen is negative. Risk Assessment: Do you want to hurt yourself or someone else? Patient reports no desire to harm self or others. Onset of symptoms was October 24, 2021. 00:50 Method Of Arrival: Ambulatory aa9 00:50 Acuity: FREDIS 4 aa9 Triage Assessment: 00:55 General: Appears uncomfortable, unkempt, Behavior is cooperative, listless. Pain: aa9 Complains of pain in left sided pain. Musculoskeletal: No deficits noted. Historical: - Allergies: 00:55 Codeine; aa9 - Home Meds: 00:55 None [Active]; aa9 - PMHx: 00:55 Bipolar disorder; Schizo-affective disorder; aa9 - PSHx: 00:55 None; aa9 - Immunization history:: Client reports receiving the 1st dose of the Covid vaccine. - Social history:: Smoking status: Patient reports the use of cigarette tobacco products, smokes one-half pack cigarettes per day. Screenin:56 Abuse screen: Denies threats or abuse. Denies injuries from another. Nutritional aa9 screening: No deficits noted. Tuberculosis screening: No symptoms or risk factors identified. Fall Risk None identified. Assessment: 01:28 General: Appears uncomfortable, Behavior is calm, cooperative, appropriate for age. ja4 Pain: Complains of pain in Left Ribs and left ankle Pain currently is 8 out of 10 on a pain scale. at worst was 10 out of 10 on a pain scale. Musculoskeletal: Reports since 2 days. Vital Signs: 00:50 BP 123 / 82; Pulse 68; Resp 16 S; Temp 98.5(O); Pulse Ox 100% on R/A; Weight 99.79 kg aa9 (R); Height 5 ft. 11 in. (180.34 cm) (R); Pain 7/10; 02:47 BP 97 / 60; Pulse 68; Resp 14; Pulse Ox 100% on R/A; ja4 00:50 Body Mass Index 30.68 (99.79 kg, 180.34 cm) aa9 ED Course: 00:47 Patient arrived in ED. ag3 00:53 Triage completed. aa9 00:56 Arm band placed on. aa9 00:57 Villa Roman MD is Attending Physician. kdr 01:23 Abhijit Valdivia, RN is Primary Nurse. ja4 01:28 Ankle Left 3 View XRAY In Process Unspecified. EDMS 01:28 CXR XRAY In Process Unspecified. EDMS 01:28 Patient has correct armband on for positive identification. Bed in low position. Call ja4 light in reach. Side rails up X2. 01:28 No provider procedures requiring assistance completed. ja4 01:48 Ribs Left XRAY In Process Unspecified. EDMS Administered Medications: 01:31 Drug: Tylenol 1000 mg Route: PO; ll3 Medication: 01:28 VIS not applicable for this client. ja4 Outcome: 02:33 Discharge ordered by . kdr 02:48 Discharged to home ambulatory. ja4 02:48 Condition: stable 02:48 Discharge instructions given to patient, Instructed on discharge instructions, follow up and referral plans. medication usage, Demonstrated understanding of instructions, follow-up care, medications, Prescriptions given X 1. 02:56 Patient left the ED. ja4 Signatures: Dispatcher [employer] EDMS Villa Roman MD MD kdr Gomez, Alice 3 Kal Barrientos RN RN 3 Mednia Manzano RN RN aa9 Abhijit Valdivia, [place] RN ja4
--- NOTE | 2021-10-24 02:33 | EDPHYS ---
Physician Documentation [facility] Name: Austin Mtz Age: 51 yrs Sex: Male : 1970 Arrival Date: 10/24/2021 Time: 00:47 Bed 15 Private MD: ED Physician Villa Roman HPI: 10/24 03:06 This 51 yrs old Male presents to ER via Ambulatory with complaints of Fall Injury - kdr left sided torso pain. 03:06 The patient states he fell 2 to 3 days ago on his left side. He states he tripped and kdr fell. He stated that he lost his balance. He also twisted his left ankle. There is currently minimal swelling to the left ankle. There is no obvious injury to the left lateral thorax.. Onset: The symptoms/episode began/occurred suddenly, 3 day(s) ago. Severity of symptoms: At their worst the symptoms were mild moderate just prior to arrival, in the emergency department the symptoms are unchanged. The patient has not experienced similar symptoms in the past. The patient has not recently seen a physician. Patient states he was walking and tripped falling on his left side and twisting his left ankle. He denies head injury. He has no other concerns or injuries.. Historical: - Allergies: 00:55 Codeine; aa9 - Home Meds: 00:55 None [Active]; aa9 - PMHx: 00:55 Bipolar disorder; Schizo-affective disorder; aa9 - PSHx: 00:55 None; aa9 - Immunization history:: Client reports receiving the 1st dose of the Covid vaccine. - Social history:: Smoking status: Patient reports the use of cigarette tobacco products, smokes one-half pack cigarettes per day. ROS: 03:06 Constitutional: Negative for fever, chills, and weight loss, Eyes: Negative for injury, kdr pain, redness, and discharge, ENT: Negative for injury, pain, and discharge, Neck: Negative for injury, pain, and swelling, Respiratory: Negative for shortness of breath, cough, wheezing, and pleuritic chest pain, Abdomen/GI: Negative for abdominal pain, nausea, vomiting, diarrhea, and constipation, Back: Negative for injury and pain, : Negative for injury, bleeding, discharge, and swelling, Skin: Negative for injury, rash, and discoloration, Neuro: Negative for headache, weakness, numbness, tingling, and seizure activity. Psych: Negative for depression, anxiety, suicide ideation, homicidal ideation, and hallucinations, Allergy/Immunology: Negative for hives, rash, and allergies, Endocrine: Negative for neck swelling, polydipsia, polyuria, polyphagia, and marked weight changes, Hematologic/Lymphatic: Negative for swollen nodes, abnormal bleeding, and unusual bruising. 03:06 Cardiovascular: Positive for chest pain, with cough, with movement, of the left lateral anterior chest. 03:06 MS/extremity: Positive for injury or acute deformity, decreased range of motion, of the left lateral ankle and left medial ankle. Exam: 03:06 Constitutional: This is a well developed, well nourished patient who is awake, alert, kdr and in no acute distress. Head/Face: Normocephalic, atraumatic. Eyes: Pupils equal round and reactive to light, extra-ocular motions intact. Lids and lashes normal. Conjunctiva and sclera are non-icteric and not injected. Cornea within normal limits. Periorbital areas with no swelling, redness, or edema. Neck: Trachea midline, no thyromegaly or masses palpated, and no cervical lymphadenopathy. Supple, full range of motion without nuchal rigidity, or vertebral point tenderness. No Meningismus. Cardiovascular: Regular rate and rhythm with a normal S1 and S2. No gallops, murmurs, or rubs. Normal PMI, no JVD. No pulse deficits. Respiratory: Lungs have equal breath sounds bilaterally, clear to auscultation and percussion. No rales, rhonchi or wheezes noted. No increased work of breathing, no retractions or nasal flaring. Abdomen/GI: Soft, non-tender, with normal bowel sounds. No distension or tympany. No guarding or rebound. No evidence of tenderness throughout. Back: No spinal tenderness. No costovertebral tenderness. Full range of motion. Skin: Warm, dry with normal turgor. Normal color with no rashes, no lesions, and no evidence of cellulitis. MS/ Extremity: Pulses equal, no cyanosis. Neurovascular intact. Full, normal range of motion. Neuro: Awake and alert, GCS 15, oriented to person, place, time, and situation. Cranial nerves II-XII grossly intact. Motor strength 5/5 in all extremities. Sensory grossly intact. Cerebellar exam normal. Normal gait. Psych: Awake, alert, with orientation to person, place and time. Behavior, mood, and affect are within normal limits. 03:06 Chest/axilla: Inspection: no acute changes, Palpation: crepitus, is not appreciated, tenderness, that is moderate, of the left lateral anterior chest and left lateral posterior chest. Vital Signs: 00:50 BP 123 / 82; Pulse 68; Resp 16 S; Temp 98.5(O); Pulse Ox 100% on R/A; Weight 99.79 kg aa9 (R); Height 5 ft. 11 in. (180.34 cm) (R); Pain 7/10; 02:47 BP 97 / 60; Pulse 68; Resp 14; Pulse Ox 100% on R/A; ja4 00:50 Body Mass Index 30.68 (99.79 kg, 180.34 cm) aa9 MDM: 02:33 Patient medically screened. kdr 03:06 Data reviewed: vital signs, nurses notes, lab test result(s), radiologic studies. kdr Counseling: I had a detailed discussion with the patient and/or guardian regarding: the historical points, exam findings, and any diagnostic results supporting the discharge/admit diagnosis, lab results, radiology results, the need for outpatient follow up. 10/24 00:59 Order name: Ankle Left 3 View XRAY kdr 10/24 00:59 Order name: Ribs Left XRAY kdr 10/24 00:59 Order name: CXR XRAY kdr Administered Medications: 01:31 Drug: Tylenol 1000 mg Route: PO; ll3 Disposition Summary: 10/24/21 02:33 Discharge Ordered Location: Home kdr Problem: new kdr Symptoms: have improved kdr Condition: Stable kdr Diagnosis - Sprain of ankle - Left kdr - Sprain of ribs kdr - Sprain of ribs, initial encounter - Left kdr Followup: kdr - With: Private Physician - When: 2 - 3 days - Reason: If symptoms return, Further diagnostic work-up, Recheck today's complaints, Continuance of care, Re-evaluation by your physician Discharge Instructions: - Discharge Summary Sheet kdr - Ankle Sprain kdr - Rib Contusion kdr Forms: - Medication Reconciliation Form kdr - Thank You Letter kdr Prescriptions: - Tramadol 50 mg Oral Tablet - take 1 tablet by ORAL route every 8 hours as needed; 6 tablet; Refills: 0, kdr Product Selection Permitted Signatures: Dispatcher [employer] Villa Leggett MD MD kdr Loubet, Lynsea RN RN ll3 Medina Manzano RN RN aa9
[2021-10-24 04:30] VITALS: TEMP 98.5; O2SAT 100
[2021-10-24 04:32] VITALS: BP 97/60
--- NOTE | 2021-10-24 16:44 | RAD REPORT ---
EXAM DESCRIPTION: RAD - Ankle Left 3 View - 10/24/2021 1:26 am ADDENDUM #1 The following addendum is being made to expand on the patient's clinical history, and does not change the findings or recommendations of the original report. Additional History: Patient fell onto his left side. Electronically signed by: Tessa Holcomb DO 10/24/2021 7:16 AM CDT End of Addendum EXAM DESCRIPTION: Ankle Left 3 View CLINICAL HISTORY: 51 years Male PAIN TECHNIQUE: Three x-ray views of the left ankle were performed on 10/24/2021 at 1:15 AM. COMPARISON: None FINDINGS: There is no evidence of fracture or dislocation. There is no significant arthritis or dege nerative change. No focal lytic or sclerotic bone lesions are seen. There is a small enthesophyte a rising from the posterior superior calcaneus. Bone mineralization is normal. No acute soft tissue abnormalities are identified. IMPRESSION: No evidence of acute osseous injury involving the left ankle. Electronically signed by: Tessa Holcomb DO 10/24/2021 2:10 AM CDT Due to temporary technical issues with the PACS/Fluency reporting system, reports are being signed by the in house radiologists without review as a courtesy to insure prompt reporting. The interpreting radiologist is fully responsible for the content of the report.
--- NOTE | 2021-10-24 16:48 | RAD REPORT ---
EXAM DESCRIPTION: RAD - Chest Single View - 10/24/2021 1:26 am ADDENDUM #1 The following addendum is being made to expand on the patient's clinical history, and does not change the findings or recommendations of the original report. Additional History: Patient fell onto his left side. Electronically signed by: Tessa Holcomb DO 10/24/2021 7:17 AM CDT End of Addendum EXAM DESCRIPTION: X-ray single view chest. CLINICAL HISTORY: 51 years Male, CHEST PAIN COMPARISON: None. TECHNIQUE: Single portable x-ray view of the chest performed on 10/24/2021 and 1:18 AM FINDINGS: The lungs are well expanded and are clear. There is no evidence of a pneumothorax. The cardiac silhouette is normal in size and configuration. The mediastinal contours are normal. No acute osseous abnormality is identified. No acute soft tissue abnormalities are seen. Lines and tubes: None. Free air: None IMPRESSION: No evidence of acute intrathoracic disease. Electronically signed by: Tessa Holcomb DO 10/24/2021 2:14 AM CDT Due to temporary technical issues with the PACS/Fluency reporting system, reports are being signed by the in house radiologists without review as a courtesy to insure prompt reporting. The interpreting radiologist is fully responsible for the content of the report.
--- NOTE | 2021-10-24 16:52 | RAD REPORT ---
EXAM DESCRIPTION: RAD - Ribs Left - 10/24/2021 1:46 am ADDENDUM #1 The following addendum is being made to comply with coding criteria and does not change the findings or recommendations of the original report. Additional clinical data: Patient fell onto his left side. Electronically signed by: Tessa Holcomb DO 10/24/2021 7:16 AM CDT End of Addendum EXAM: X-ray Ribs unilateral left CLINICAL HISTORY: 51 years Male df TECHNIQUE: Four x-ray views of the left ribs were performed on 10/24/2021 at 1:37 AM. COMPARISON: None FINDINGS: There is no evidence of fracture or other acute osseous injury. No focal lytic or scleroti c bone lesions are seen. The visualized portions of the adjacent hemithorax are normal.There is no ev idence of a pneumothorax. IMPRESSION: No evidence of acute osseous injury involving the left ribs. Electronically signed by: Tessa Holcomb DO 10/24/2021 2:13 AM CDT Due to temporary technical issues with the PACS/Fluency reporting system, reports are being signed by the in house radiologists without review as a courtesy to insure prompt reporting. The interpreting radiologist is fully responsible for the content of the report.
== END 2021-10-24 02:56 | disposition home or self-care (01) ==
LOC: ER 00:32
DX: S93.402A Sprain of unspecified ligament of left ankle, initial encounter (principal); S23.41XA Sprain of ribs, initial encounter; F17.210 Nicotine dependence, cigarettes, uncomplicated; Z88.5 Allergy status to narcotic agent
CPT/HCPCS: 71045; 99283

== ENCOUNTER 2021-11-30 22:23 | Emergency (ER) | payer OTHER ==
--- NOTE | 2021-12-01 02:44 | ER ---
Nurse's Notes [facility] Name: Austin Mtz Age: 51 yrs Sex: Male : 1970 Arrival Date: 11/30/2021 Time: 22:26 Bed IW1 Private MD: Diagnosis: Otitis media, unspecified, bilateral Presentation: 11/30 22:57 Chief complaint:. vc1 22:57 Chief complaint: Patient states: "I have a loose tooth and I keep loosing my stuff. I vc1 am homeless and I keep having to go to the police department to find my stuff. I just want to see if maybe yall can scan my head to make sure nothing is wrong. I also had chest pain the other day while walking around and a little bit today. Coronavirus screen: Vaccine status: At this time, the client does not indicate any symptoms associated with coronavirus-19. Ebola Screen: No symptoms or risks identified at this time. Initial Sepsis Screen: Does the patient meet any 2 criteria? Yes Does the patient have a suspected source of infection? No. Patient's initial sepsis screen is negative. Risk Assessment: Do you want to hurt yourself or someone else? Patient reports no desire to harm self or others. Onset of symptoms is unknown. 22:57 Method Of Arrival: Ambulatory vc1 22:57 Acuity: FREDIS 4 vc1 Triage Assessment: 23:03 General: Appears in no apparent distress. Behavior is calm, cooperative, appropriate vc1 for age. EENT: Reports loose tooth. Historical: - Allergies: 23:01 Codeine; vc1 23:01 Haloperidol; vc1 - Home Meds: 23:01 None [Active]; vc1 - PMHx: 23:01 bells palsy; chronic back pain; Bipolar Type 2- Schizo-affective; vc1 - PSHx: 23:01 Tonsillectomy; vc1 - Immunization history:: Adult Immunizations up to date, un sure. - Social history:: Smoking status: Patient reports the use of cigarette tobacco products, smokes one pack cigarettes per day. Assessment: 22:52 Reassessment: My left wisdom tooth is really wiggly but it doesn't really hurt. I have vc1 been misplacing my stuff for the last 2 weeks. I came in because I am homeless and keep loosing my stuff. I had chest pain today. Pain: Denies pain. EENT: Reports loose tooth. 12/01 02:54 Reassessment: Patient is alert, oriented x 3, equal unlabored respirations, skin bb warm/dry/pink. pt verbalized understanding of and agrees to plan of care discharge instructions given pt ambulated with steady gait to exit. Vital Signs: 11/30 22:57 BP 127 / 84; Pulse 65; Resp 18; Temp 96.9; Pulse Ox 99% ; Weight 104.33 kg (R); Height vc1 5 ft. 10 in. (177.80 cm); Pain 0/10; 12/01 02:56 BP 118 / 75; Pulse 54; Resp 16 S; Temp 96.8(TE); Pulse Ox 99% on R/A; bb 11/30 22:57 Body Mass Index 33.00 (104.33 kg, 177.80 cm) vc1 ED Course: 11/30 22:26 Patient arrived in ED. dt4 22:44 Geraldo Patiño PA is PHCP. cp 22:44 Cassie Em MD is Attending Physician. cp 23:00 Triage completed. vc1 23:00 Arm band placed on left wrist. vc1 12/01 00:51 CT Head Brain wo Cont In Process Unspecified. EDMS 02:57 No provider procedures requiring assistance completed. Patient did not have IV access bb during this emergency room visit. Administered Medications: 02:49 Drug: Augmentin (Amoxicillin-Clavulanate) 875 mg Route: PO; bb 02:53 Follow up: Response: Medication administered at discharge. bb Medication: 02:57 VIS not applicable for this client. bb Outcome: 02:43 Discharge ordered by . cp 02:56 Discharged to home ambulatory. bb 02:56 Condition: stable 02:56 Discharge instructions given to patient, Instructed on discharge instructions, follow up and referral plans. medication usage, Demonstrated understanding of instructions, follow-up care, medications, Prescriptions given X 1. 02:57 Patient left the ED. bb Signatures: Dispatcher [employer] EDMS Vianca Romero RN RN bb Geraldo Patiño PA PA cp Calcote, Vanessa, RN RN vc1 Lizzeth Jordan dt4 Corrections: (The following items were deleted from the chart) 11/30 23:03 23:01 PMHx: Bipolar disorder; vc1 vc1 23: 23:01 PMHx: Schizo-affective disorder; vc1 vc1
--- NOTE | 2021-12-01 02:44 | EDPHYS ---
Physician Documentation [facility] Name: Austin Mtz Age: 51 yrs Sex: Male : 1970 Arrival Date: 11/30/2021 Time: 22:26 Bed IW1 Private MD: ED Physician Cassie Em HPI: 11/30 23:30 This 51 yrs old Male presents to ER via Ambulatory with complaints of Toothache. cp 23:30 The patient presents with loose and painful tooth. The problem is located in the left cp upper jaw. Patient expresses multiple complaints. Concerned that he is forgetting belongings over past 1-2 weeks, intermittent headaches and chest pain. Would like head CT. C/o right ear pain. Historical: - Allergies: 23:01 Codeine; vc1 23:01 Haloperidol; vc1 - Home Meds: 23:01 None [Active]; vc1 - PMHx: 23:01 bells palsy; chronic back pain; Bipolar Type 2- Schizo-affective; vc1 - PSHx: 23:01 Tonsillectomy; vc1 - Immunization history:: Adult Immunizations up to date, un sure. - Social history:: Smoking status: Patient reports the use of cigarette tobacco products, smokes one pack cigarettes per day. ROS: 23:35 Constitutional: Negative for fever. cp 23:35 ENT: Positive for ear pain, loose and painful tooth. cp 23:35 Neck: Negative for pain with movement, pain at rest, stiffness. 23:35 Respiratory: Negative for cough, shortness of breath, wheezing. 23:35 Abdomen/GI: Negative for abdominal pain, nausea, vomiting, and diarrhea. 23:35 Neuro: Negative for altered mental status, weakness. 23:35 All other systems are negative. Exam: 23:40 Constitutional: The patient appears in no acute distress, alert, awake, comfortable, cp non-diaphoretic, non-toxic, well developed, well nourished. 23:40 Head/Face: Normocephalic, atraumatic. cp 23:40 Eyes: Periorbital structures: appear normal, Conjunctiva: normal, no exudate, no injection, Sclera: no appreciated abnormality, Lids and lashes: appear normal, bilaterally. 23:40 ENT: External ear(s): are unremarkable, Ear canal(s): are normal, clear, TM's: bulging, is not appreciated, bilaterally, erythema, that is mild, bilaterally, Nose: is normal, Mouth: Lips: moist, Oral mucosa: pink and intact, moist, Posterior pharynx: Airway: no evidence of obstruction, patent, Tonsils: are normal in appearance, erythema, is not appreciated, exudate, is not appreciated, Dental exam: abscess, is not appreciated, dental caries, that is severe, diffusely, fractured teeth are noted, multiple, pain, that is mild, specifically in the upper left second molar (#15), fractured, loose, Voice: is normal. 23:40 Neck: ROM/movement: is normal, is supple, without pain, no range of motions limitations, no meningismus. 23:40 Chest/axilla: Inspection: normal. 23:40 Cardiovascular: Rate: normal, Rhythm: regular, Edema: is not appreciated, JVD: is not appreciated. 23:40 Respiratory: the patient does not display signs of respiratory distress, Respirations: normal, no use of accessory muscles, no retractions, labored breathing, is not present, Breath sounds: are clear throughout, no decreased breath sounds, no stridor, no wheezing. 23:40 Abdomen/GI: Inspection: abdomen appears normal, Palpation: abdomen is soft and non-tender, in all quadrants. 23:40 Neuro: Orientation: to person, place \T\ time. Mentation: is normal, Motor: moves all fours, strength is normal, Sensation: is normal, Gait: is steady. Vital Signs: 22:57 BP 127 / 84; Pulse 65; Resp 18; Temp 96.9; Pulse Ox 99% ; Weight 104.33 kg (R); Height vc1 5 ft. 10 in. (177.80 cm); Pain 0/10; 12/01 02:56 BP 118 / 75; Pulse 54; Resp 16 S; Temp 96.8(TE); Pulse Ox 99% on R/A; bb 11/30 22:57 Body Mass Index 33.00 (104.33 kg, 177.80 cm) vc1 MDM: 11/30 23:08 Patient medically screened. cp 12/01 00:00 Differential diagnosis: dental caries, dental abscess, pericoronitis. cp 02:43 Data reviewed: vital signs, nurses notes, radiologic studies, CT scan. cp 02:43 Counseling: I had a detailed discussion with the patient and/or guardian regarding: the cp historical points, exam findings, and any diagnostic results supporting the discharge/admit diagnosis, radiology results, the need for outpatient follow up, for definitive care, a dentist, to return to the emergency department if symptoms worsen or persist or if there are any questions or concerns that arise at home. Response to treatment: the patient's symptoms have mildly improved after treatment, and as a result, I will discharge patient. 11/30 23:27 Order name: CT Head Brain wo Cont cp Administered Medications: 02:49 Drug: Augmentin (Amoxicillin-Clavulanate) 875 mg Route: PO; bb 02:53 Follow up: Response: Medication administered at discharge. Disposition Summary: 12/01/21 02:43 Discharge Ordered Location: Home cp Problem: new cp Symptoms: have improved cp Condition: Stable cp Diagnosis - Otitis media, unspecified, bilateral cp Followup: cp - With: Private Physician - When: 2 - 3 days - Reason: Recheck today's complaints Discharge Instructions: - Discharge Summary Sheet cp - Otitis Media, Adult cp Forms: - Medication Reconciliation Form cp - Thank You Letter cp - Antibiotic Education cp - Prescription Opioid Use cp Prescriptions: - Augmentin 875-125 mg Oral Tablet - take 1 tablet by ORAL route every 12 hours for 10 days; 20 tablet; Refills: 0, cp Product Selection Permitted Signatures: Dispatcher [employer] Vianca Jiménez RN RN bb Page, Corey, PA PA cp Calcote, Vanessa RN RN vc1 Corrections: (The following items were deleted from the chart) 11/30 23:03 23:01 PMHx: Bipolar disorder; vc1 vc1 23:03 23:01 PMHx: Schizo-affective disorder; vc1 vc1
[2021-12-01] MEDS ORDERED: AMOX/K CLAV 875 MG TAB ONE (02:52)
[2021-12-01 03:02] VITALS: O2SAT 99
[2021-12-01 03:03] VITALS: BP 118/75; TEMP 96.8
--- NOTE | 2021-12-01 11:34 | RAD REPORT ---
EXAM DESCRIPTION: Noncontrast CT Head CLINICAL HISTORY: Dizziness. TECHNIQUE: Noncontrast CT through the head was performed. Axial, coronal, and sagittal reconstructio ns were created and sent to PACS. This exam was performed according to our departmental dose-optimiza tion program which includes use of Automated Exposure Control, adjustment of the mA and/or kV accordi ng to patient size and/or use of iterative reconstruction technique. COMPARISON: None. FINDINGS: There is diffuse age-appropriate atrophy throughout the brain parenchyma. Mild periventric ular white matter changes are present, and there is mild ex vacuo dilatation of the ventricular syste m. There is no intra-axial or extra-axial bleed. There is no mass or mass effect. Mild mucosal thickening in the ethmoid air cells. The remaining visualized paranasal sinuses and mast oid air cells are patent. No acute fracture is identified. IMPRESSION: No acute intracranial abnormality identified. Mild chronic age-related and microvascular ischemic changes. Electronically signed by: Yodit Esqueda MD 10/01/2021 12:05 AM CDT Due to temporary technical issues with the PACS/Fluency reporting system, reports are being signed by the in house radiologists without review as a courtesy to insure prompt reporting. The interpreting radiologist is fully responsible for the content of the report.
== END 2021-12-01 02:57 | disposition home or self-care (01) ==
LOC: ER 22:23
DX: H66.93 Otitis media, unspecified, bilateral (principal); Z88.6 Allergy status to analgesic agent; F17.210 Nicotine dependence, cigarettes, uncomplicated
CPT/HCPCS: 70450; 99283

== ENCOUNTER 2022-03-21 18:56 | Emergency (ER) | payer OTHER ==
--- NOTE | 2022-03-21 21:23 | EDPHYS ---
Physician Documentation [facility] Name: Austin Mtz Age: 52 yrs Sex: Male : 1970 Arrival Date: 03/21/2022 Time: 18:59 Bed IW1 Private MD: ED Physician Geraldo Almaraz HPI: 03/21 21:15 This 52 yrs old Male presents to ER via Ambulatory with complaints of mental elvira health. 21:15 The patient presents to the emergency department with anxiety, paranoia. Onset: The elvira symptoms/episode began/occurred yesterday. Past psychiatric history: Prior diagnosis: bipolar disorder, schizophrenia. Associated signs and symptoms: Pertinent positives; anxiety, homeless. Severity of symptoms: At their worst the symptoms were mild in the emergency department the symptoms have improved mildly. The patient has experienced similar episodes in the past, multiple times. Historical: - Allergies: 19:15 Codeine; aa5 19:15 Haloperidol; aa5 19:15 LITHIUM DERIVITIVES; aa5 - PMHx: 19:15 bells palsy; Bipolar Type 2- Schizo-affective; chronic back pain; aa5 - PSHx: 19:15 Tonsillectomy; aa5 - Immunization history:: Adult Immunizations unknown. - Social history:: Smoking status: Patient reports the use of cigarette tobacco products. - Family history:: not pertinent. ROS: 21:15 Constitutional: Negative for fever, chills, and weight loss, Eyes: Negative for injury, elvira pain, redness, and discharge, ENT: Negative for injury, pain, and discharge, Neck: Negative for injury, pain, and swelling, Cardiovascular: Negative for chest pain, palpitations, and edema, Respiratory: Negative for shortness of breath, cough, wheezing, and pleuritic chest pain, Abdomen/GI: Negative for abdominal pain, nausea, vomiting, diarrhea, and constipation, Back: Negative for injury and pain, : Negative for injury, bleeding, discharge, and swelling, MS/Extremity: Negative for injury and deformity, Skin: Negative for injury, rash, and discoloration, Neuro: Negative for headache, weakness, numbness, tingling, and seizure, Allergy/Immunology: Negative for hives, rash, and allergies, Endocrine: Negative for neck swelling, polydipsia, polyuria, polyphagia, and marked weight changes, Hematologic/Lymphatic: Negative for swollen nodes, abnormal bleeding, and unusual bruising. 21:15 Psych: Positive for anxiety. Exam: 21:15 Constitutional: This is a well developed, well nourished patient who is awake, alert, elvira and in no acute distress. Head/Face: Normocephalic, atraumatic. Eyes: Pupils equal round and reactive to light, extra-ocular motions intact. Lids and lashes normal. Conjunctiva and sclera are non-icteric and not injected. Cornea within normal limits. Periorbital areas with no swelling, redness, or edema. ENT: Nares patent. No nasal discharge, no septal abnormalities noted. Tympanic membranes are normal and external auditory canals are clear. Oropharynx with no redness, swelling, or masses, exudates, or evidence of obstruction, uvula midline. Mucous membranes moist. Neck: Trachea midline, no thyromegaly or masses palpated, and no cervical lymphadenopathy. Supple, full range of motion without nuchal rigidity, or vertebral point tenderness. No Meningismus. Chest/axilla: Normal chest wall appearance and motion. Nontender with no deformity. No lesions are appreciated. Cardiovascular: Regular rate and rhythm with a normal S1 and S2. No gallops, murmurs, or rubs. Normal PMI, no JVD. No pulse deficits. Respiratory: Lungs have equal breath sounds bilaterally, clear to auscultation and percussion. No rales, rhonchi or wheezes noted. No increased work of breathing, no retractions or nasal flaring. Abdomen/GI: Soft, non-tender, with normal bowel sounds. No distension or tympany. No guarding or rebound. No evidence of tenderness throughout. Back: No spinal tenderness. No costovertebral tenderness. Full range of motion. Skin: Warm, dry with normal turgor. Normal color with no rashes, no lesions, and no evidence of cellulitis. MS/ Extremity: Pulses equal, no cyanosis. Neurovascular intact. Full, normal range of motion. Neuro: Awake and alert, GCS 15, oriented to person, place, time, and situation. Cranial nerves II-XII grossly intact. Motor strength 5/5 in all extremities. Sensory grossly intact. Cerebellar exam normal. Normal gait. Psych: Awake, alert, with orientation to person, place and time. Behavior, mood, and affect are within normal limits. Vital Signs: 19:14 BP 121 / 79; Pulse 77; Resp 18 S; Temp 98.2(TE); Pulse Ox 98% on R/A; Weight 108.86 kg aa5 (R); Height 5 ft. 11 in. (180.34 cm) (R); 19:14 Body Mass Index 33.47 (108.86 kg, 180.34 cm) aa5 MDM: 19:24 Patient medically screened. elvira 21:19 Differential diagnosis: acute psychotic break, depression, psychosis secondary to elvira non-compliance. Consideration of Admission/Observation Escalation of care including admission/observation considered. I considered the following discharge prescriptions or medication management in the emergency department I discussed and recommended Over The Counter medications, Antibiotics: At this time antibiotics are not recommended, Antihypertensives: At this time antihypertensives are not recommended. We recommend home blood pressure checks and following up with primary care provider, Antivirals: At this time, antivirals are not recommended, Pain Medications: At this time, prescription pain medications are not recommended. Test considered but Not performed: Labs: cbc, comp met. Care significantly affected by the following chronic conditions: bipolar, schizo. Administered Medications: 20:09 CANCELLED (Patient Refused): NS 0.9% 1000 ml IV at 1 bolus Per protocol; 1000 mL bolus tw5 Disposition Summary: 03/21/22 21:22 Discharge Ordered Location: Home elvira Problem: new elvira Symptoms: have improved elvira Condition: Stable elvira Diagnosis - Bipolar disorder, unspecified elvira - Schizophrenia, unspecified elvira - Homelessness elvira Followup: elvira - With: Private Physician - When: 2 - 3 days - Reason: Recheck today's complaints, Continuance of care, Re-evaluation by your physician Followup: elvira - With: Elvis Marsh MD - When: 2 - 3 days - Reason: Recheck today's complaints, Re-evaluation by your physician Discharge Instructions: - Discharge Summary Sheet elvira - Schizophrenia elvira - Stress, Adult elvira - Mixed Bipolar Disorder elvira - Supporting Someone With Bipolar Disorder elvira - Managing Stress, Adult elvira - Managing Schizophrenia elvira Forms: - Medication Reconciliation Form elvira - Thank You Letter elvira - Antibiotic Education elvira - Prescription Opioid Use elvira Signatures: Dispatcher [employer] EDGeraldo Riggs MD MD cha Calderon, Audri, RN RN aa5 Usha Riddle tw5 Corrections: (The following items were deleted from the chart) 19:16 19:15 Allergies: [place] Carbonate; aa5 aa5 : 19:12 EKG - Nurse/Tech [place]. [place] [id number] 19:12 IV Saline Lock [place]. [place] [id number] 19:12 Labs collected and sent [place]. [place] [id number] 19:12 Suicide Screening ([place]) [place]. [place] [id number] 19:12 Urine Dipstick-Ancillary [place]. [place] [id number] 19:12 NS 0.9% 1000 ml IV at 1 bolus Per protocol; 1000 mL bolus [place]. [place] [id number]
--- NOTE | 2022-03-21 21:23 | ER ---
Nurse's Notes [facility] Name: Austin Mtz Age: 52 yrs Sex: Male : 1970 Arrival Date: 03/21/2022 Time: 18:59 Bed IW1 Private MD: Diagnosis: Bipolar disorder, unspecified;Schizophrenia, unspecified;Homelessness Presentation: 03/21 19:14 Chief complaint: Patient states: "I just feel overwhelmed and it's cold and I am still aa5 homeless". Pt denies SI or HI, pt states "I am just tired of being out there in the streets". Coronavirus screen: At this time, the client does not indicate any symptoms associated with coronavirus-19. Ebola Screen: Patient denies travel to an Ebola-affected area in the 21 days before illness onset. Initial Sepsis Screen: Does the patient meet any 2 criteria? No. Patient's initial sepsis screen is negative. Does the patient have a suspected source of infection? No. Patient's initial sepsis screen is negative. Risk Assessment: Do you want to hurt yourself or someone else? Patient reports no desire to harm self or others. Onset of symptoms was March 2022. 19:14 Method Of Arrival: Ambulatory aa5 19:14 Acuity: FREDIS 5 aa5 Historical: - Allergies: 19:15 Codeine; aa5 19:15 Haloperidol; aa5 19:15 LITHIUM DERIVITIVES; aa5 - PMHx: 19:15 bells palsy; Bipolar Type 2- Schizo-affective; chronic back pain; aa5 - PSHx: 19:15 Tonsillectomy; aa5 - Immunization history:: Adult Immunizations unknown. - Social history:: Smoking status: Patient reports the use of cigarette tobacco products. - Family history:: not pertinent. Screenin:29 [facility] ED Fall Risk Assessment (Adult) History of falling in the last 3 months, tw5 including since admission. Abuse screen: Denies threats or abuse. Assessment: 19:29 General: Reports Patient walking up to the nurses station stating "I just need tw5 somewhere warm to be, It is really is cold outside.". Pain: Denies pain. 19:49 General: Patient was handed a list of community resources. It was also communicated to tw5 the patient that several churches, the PD department and shelters had been called on his behalf. Either there was no answer, they didn't have an idea where he could go on or the nearest intermediate was currently closed. Patient was handed wipes upon his request. . Vital Signs: 19:14 BP 121 / 79; Pulse 77; Resp 18 S; Temp 98.2(TE); Pulse Ox 98% on R/A; Weight 108.86 kg aa5 (R); Height 5 ft. 11 in. (180.34 cm) (R); 19:14 Body Mass Index 33.47 (108.86 kg, 180.34 cm) aa5 ED Course: 18:59 Patient arrived in ED. as 19:12 Geraldo Almaraz MD is Attending Physician. [facility] 19:14 Arm band placed on. aa5 19:15 Triage completed. aa5 21:21 Elvis Marsh MD is Referral Physician. elvira Administered Medications: 20:09 CANCELLED (Patient Refused): NS 0.9% 1000 ml IV at 1 bolus Per protocol; 1000 mL bolus tw5 Medication: 19:29 VIS not applicable for this client. tw5 Outcome: 21:22 Discharge ordered by . [facility] 21:24 Patient left the ED. tw5 Signatures: Geraldo Almaraz MD MD cha Martinez, Amelia as Calderon, Audri, RN RN aa5 Usha Riddle tw5 Corrections: (The following items were deleted from the chart) 19:16 19:15 Allergies: [place] Carbonate; aa5 aa5
[2022-03-21 21:28] VITALS: BP 121/79; TEMP 98.2; O2SAT 98
== END 2022-03-21 21:24 | disposition home or self-care (01) ==
LOC: ER 18:56
DX: F25.0 Schizoaffective disorder, bipolar type (principal); Z59.00 Homelessness unspecified; Z72.0 Tobacco use

== ENCOUNTER 2022-03-31 20:57 | Emergency (ER) | payer OTHER ==
--- NOTE | 2022-03-31 21:44 | ER ---
Nurse's Notes [facility] Name: Austin Mtz Age: 52 yrs Sex: Male : 1970 Arrival Date: 03/31/2022 Time: 20:59 Bed 24 Private MD: Diagnosis: Right heel injury;Superficial laceration of right foot without foreign body Presentation: 03/31 21:24 Chief complaint: Patient states: "I think I stepped on something. My right foot is off. as6 I haven't been able to take care on it because I'm homeless". Coronavirus screen: At this time, the client does not indicate any symptoms associated with coronavirus-19. Ebola Screen: No symptoms or risks identified at this time. Initial Sepsis Screen: Does the patient meet any 2 criteria? No. Patient's initial sepsis screen is negative. Does the patient have a suspected source of infection? No. Patient's initial sepsis screen is negative. Risk Assessment: Do you want to hurt yourself or someone else? Patient reports no desire to harm self or others. Onset of symptoms was March 31, 2022. 21:24 Acuity: FREDIS 4 as6 21:24 Method Of Arrival: Ambulatory as6 Historical: - Allergies: 21:29 Codeine; as6 21:29 Haloperidol; as6 21:29 LITHIUM DERIVITIVES; as6 - PMHx: 21:29 bells palsy; Bipolar Type 2- Schizo-affective; chronic back pain; as6 - PSHx: 21:29 Tonsillectomy; as6 - Immunization history:: Adult Immunizations not up to date. - Social history:: Smoking status: Patient denies any tobacco usage or history of. Patient uses street drugs, marijuana. Screenin:23 [facility] ED Fall Risk Assessment (Adult) History of falling in the last 3 months, bb including since admission No falls in past 3 months (0 pts). Abuse screen: Denies threats or abuse. Nutritional screening: No deficits noted. Tuberculosis screening: No symptoms or risk factors identified. Assessment: 22:23 General: Appears in no apparent distress. Behavior is calm, cooperative. Pain: Denies bb pain. Neuro: Level of Consciousness is awake, alert, obeys commands, Oriented to person, place, time, situation. Cardiovascular: Capillary refill < 3 seconds Patient's skin is warm and dry. Respiratory: Respiratory effort is even, unlabored, Respiratory pattern is regular. GI: No signs and/or symptoms were reported involving the gastrointestinal system. Derm: abrasion below big toe on right foot, superficial crack to left heel. Musculoskeletal: Circulation, motion, and sensation intact. 22:24 Reassessment: Patient is alert, oriented x 3, equal unlabored respirations, skin bb warm/dry/pink. pt verbalized understanding of and agrees to plan of care discharge instructions given pt ambulated to chair where he was given basin to soak feet in iodine solution and pt given socks per his request pt to leave ED when he is finished. Vital Signs: 21:24 BP 119 / 78; Pulse 79; Resp 18 S; Temp 97.6(O); Pulse Ox 99% on R/A; Weight 108.86 kg as6 (R); Height 5 ft. 10 in. (177.80 cm) (R); Pain 0/10; 21:24 Body Mass Index 34.44 (108.86 kg, 177.80 cm) as6 ED Course: 20:59 Patient arrived in ED. jj6 21:29 Triage completed. as6 21:29 Cassie Em MD is Attending Physician. sd2 21:29 Arm band placed on. as6 22:23 Patient has correct armband on for positive identification. bb 22:23 No provider procedures requiring assistance completed. Patient did not have IV access bb during this emergency room visit. Administered Medications: No medications were administered Medication: 22:23 VIS not applicable for this client. bb Outcome: 21:44 Discharge ordered by . sd2 22:23 Discharged to home ambulatory. bb 22:23 Condition: stable 22:23 Discharge instructions given to patient, Instructed on discharge instructions, follow up and referral plans. Demonstrated understanding of instructions, follow-up care. 22:26 Patient left the ED. bb Signatures: Vianca Romero RN RN Kisha Lynn jj6 Dash Troy RN RN as6 Cassie Em MD MD sd2
--- NOTE | 2022-03-31 21:44 | EDPHYS ---
Physician Documentation [facility] Name: Austin Mtz Age: 52 yrs Sex: Male : 1970 Arrival Date: 03/31/2022 Time: 20:59 Bed 24 Private MD: ED Physician Cassie Em HPI: 03/31 21:39 This 52 yrs old Male presents to ER via Ambulatory with complaints of Foot Injury. sd2 21:39 52 yo M presents with CC of R foot pain. States he was walking through a construction sd2 site and thinks he may have stepped onto something. Denies any fever or significant drainage and symptoms started today. . Historical: - Allergies: 21:29 Codeine; as6 21:29 Haloperidol; as6 21:29 LITHIUM DERIVITIVES; as6 - PMHx: 21:29 bells palsy; Bipolar Type 2- Schizo-affective; chronic back pain; as6 - PSHx: 21:29 Tonsillectomy; as6 - Immunization history:: Adult Immunizations not up to date. - Social history:: Smoking status: Patient denies any tobacco usage or history of. Patient uses street drugs, marijuana. ROS: 21:39 MS/extremity: Positive for injury or acute deformity, pain, Negative for deformity, sd2 rash. 21:39 Constitutional: Negative for fever, chills, and weight loss, Eyes: Negative for injury, pain, redness, and discharge, Skin: Negative for injury, rash, and discoloration. Exam: 21:39 Constitutional: This is a well developed, well nourished patient who is awake, alert, sd2 and in no acute distress. Head/Face: Normocephalic, atraumatic. Eyes: EOMI, normal conjunctiva bilaterally Skin: Warm, dry with normal turgor. Normal color with no rashes, no lesions, and no evidence of cellulitis. There is a small superficial laceration noted to the heel of the right foot with no evidence of FB, bleeding or infection. MS/ Extremity: Pulses equal, no cyanosis. Neurovascular intact. Full, normal range of motion. Ambulatory without difficulty. Psych: Awake, alert, with orientation to person, place and time. Behavior, mood, and affect are within normal limits. Vital Signs: 21:24 BP 119 / 78; Pulse 79; Resp 18 S; Temp 97.6(O); Pulse Ox 99% on R/A; Weight 108.86 kg as6 (R); Height 5 ft. 10 in. (177.80 cm) (R); Pain 0/10; 21:24 Body Mass Index 34.44 (108.86 kg, 177.80 cm) as6 MDM: 21:39 Patient medically screened. sd2 21:39 Differential diagnosis: fracture, sprain, foreign body, penetrating trauma, gout, sd2 cellulitis, among others. Data reviewed: vital signs, nurses notes. I considered the following discharge prescriptions or medication management in the emergency department Pain Medications: At this time, prescription pain medications are not recommended, Pt declined pain medication.. Test considered but Not performed: X-ray: Pt declined. Care significantly affected by the following chronic conditions: Mental illness. Care significantly affected by the following Social Determinants of Health: Inadequate housing. Counseling: I had a detailed discussion with the patient and/or guardian regarding: the historical points, exam findings, and any diagnostic results supporting the discharge/admit diagnosis, the need for outpatient follow up, to return to the emergency department if symptoms worsen or persist or if there are any questions or concerns that arise at home. ED course: Appears to have superficial cut to posterior heel with no signs of infection at this time. Pt declined XR after discussion of risks and benefits. States he would just like to soak his foot to get it clean. Declines further workup or pain medication. Will plan for wound care and discharge. Pt to monitor for infection. . Administered Medications: No medications were administered Disposition Summary: 03/31/22 21:44 Discharge Ordered Location: Home sd2 Problem: new sd2 Symptoms: have improved sd2 Condition: Stable sd2 Diagnosis - Right heel injury sd2 - Superficial laceration of right foot without foreign body sd2 Followup: sd2 - With: Private Physician - When: 2 - 3 days - Reason: Recheck today's complaints, Continuance of care, Re-evaluation by your physician Discharge Instructions: - Discharge Summary Sheet sd2 - Nonsutured Laceration Care sd2 - Foot Pain sd2 Forms: - Medication Reconciliation Form sd2 - Thank You Letter sd2 - Antibiotic Education sd2 - Prescription Opioid Use sd2 Signatures: Dash Troy RN RN as6 Manav, Cassie, MD MD sd2
[2022-03-31 23:51] VITALS: BP 119/78; TEMP 97.6; O2SAT 99
== END 2022-03-31 22:26 | disposition home or self-care (01) ==
LOC: ER 20:57
DX: S91.311A Laceration without foreign body, right foot, initial encounter (principal); S99.921A Unspecified injury of right foot, initial encounter; Z88.5 Allergy status to narcotic agent; Z88.8 Allergy status to other drugs, medicaments and biological substances
CPT/HCPCS: 99281

== ENCOUNTER 2022-04-06 00:16 | Emergency (ER) | payer OTHER ==
--- NOTE | 2022-04-06 01:13 | EDPHYS ---
Physician Documentation [facility] Name: Austin Mtz Age: 52 yrs Sex: Male : 1970 Arrival Date: 04/06/2022 Time: 00:19 Bed IW4 Private MD: ED Physician Parker Farmer HPI: 04/06 01:06 This 52 yrs old Male presents to ER via Unassigned with complaints of Rash. rn 01:06 The patient's rash thought to be caused by an unknown cause. The rash is located on the rn buttocks. Onset: The symptoms/episode began/occurred at an unknown time. Associated signs and symptoms: Pertinent positives: burning sensation, Pertinent negatives: fever. Severity of symptoms: At their worst the symptoms were mild in the emergency department the symptoms are unchanged. The patient has not experienced similar symptoms in the past. Pt states is homeless, noticed a rash and burning sensation to buttocks, not sure if something bit him. No fever. Does not know when it began.. Historical: - Allergies: 01:12 Codeine; vc1 01:12 Haloperidol; vc1 01:12 LITHIUM DERIVITIVES; vc1 - Home Meds: 01:12 None [Active]; vc1 - PMHx: 01:12 bells palsy; Bipolar Type 2- Schizo-affective; chronic back pain; vc1 - PSHx: 01:12 Tonsillectomy; vc1 - Immunization history:: Client reports having NOT received the Covid vaccine. - Social history:: Smoking status: Patient reports the use of cigarette tobacco products, smokes one-half pack cigarettes per day. - Family history:: not pertinent. - Hospitalizations: : No recent hospitalization is reported. ROS: 01:06 Constitutional: Negative for fever, chills, and weight loss, Skin: + rash and skin rn breakdown to buttocks Exam: 01:06 Constitutional: This is a well developed, well nourished patient who is awake, alert, rn and in no acute distress. Skin: Warm, dry, + skin breakdown of groin and between buttocks, no fluctuance, no necrosis, no sloughing Vital Signs: 01:10 Pulse 95; Resp 18; Temp 97.6; Pulse Ox 95% ; Weight 99.79 kg; Height 5 ft. 10 in. vc1 (177.80 cm); :10 Body Mass Index 31.57 (99.79 kg, 177.80 cm) vc1 MDM: 00:28 Patient medically screened. rn 01:06 Differential diagnosis: dermatitis, poor hygiene. Data reviewed: vital signs, nurses rn notes, and as a result, I will discharge patient. I considered the following discharge prescriptions or medication management in the emergency department I discussed and recommended Over The Counter medications. Care significantly affected by the following Social Determinants of Health: Poor access to healthcare and/or lack of insurance, Poor access to transportation, Inadequate housing, Unemployment. Counseling: I had a detailed discussion with the patient and/or guardian regarding: the historical points, exam findings, and any diagnostic results supporting the discharge/admit diagnosis, the need for outpatient follow up, to return to the emergency department if symptoms worsen or persist or if there are any questions or concerns that arise at home. Special discussion: I discussed with the patient/guardian in detail that at this point there is no indication for admission to the hospital. It is understood, however, that if the symptoms persist or worsen the patient needs to return immediately for re-evaluation. ED course: Got patient cleaned up, gave A\T\D ointment samples, body wash, and care kit. Patient thankful. . Administered Medications: No medications were administered Disposition Summary: 04/06/22 01:13 Discharge Ordered Location: Home rn Problem: new rn Symptoms: have improved rn Condition: Stable rn Diagnosis - Rash and other nonspecific skin eruption rn Followup: rn - With: Private Physician - When: As needed - Reason: Recheck today's complaints, Re-evaluation by your physician Discharge Instructions: - Discharge Summary Sheet rn - Rash, Adult rn Forms: - Medication Reconciliation Form rn - Thank You Letter rn - Antibiotic rn hedis - Prescription Opioid Use rn Signatures: Parker Farmer MD MD rn Calcote, Vanessa, RN RN vc1
--- NOTE | 2022-04-06 01:13 | ER ---
Nurse's Notes [facility] Name: Austin Mtz Age: 52 yrs Sex: Male : 1970 Arrival Date: 04/06/2022 Time: 00:19 Bed IW4 Private MD: Diagnosis: Rash and other nonspecific skin eruption Presentation: 04/06 01:10 Chief complaint: Patient states: "I have a rash in a bad area.". Coronavirus screen: vc1 Vaccine status: Patient reports being unvaccinated. Client denies travel out of the [place] in the last 14 days. At this time, the client does not indicate any symptoms associated with coronavirus-19. Ebola Screen: No symptoms or risks identified at this time. Initial Sepsis Screen: Does the patient meet any 2 criteria? No. Patient's initial sepsis screen is negative. Does the patient have a suspected source of infection? No. Patient's initial sepsis screen is negative. Risk Assessment: Do you want to hurt yourself or someone else? Patient reports no desire to harm self or others. Onset of symptoms is unknown. 01:10 Method Of Arrival: Ambulatory vc1 01:10 Acuity: FREDIS 5 vc1 Triage Assessment: 01:12 General: Appears in no apparent distress. uncomfortable, Behavior is calm, cooperative, vc1 appropriate for age. Pain: Denies pain. EENT: No deficits noted. No signs and/or symptoms were reported regarding the EENT system. Neuro: No deficits noted. Cardiovascular: No deficits noted. Respiratory: Airway is patent Respiratory effort is even, unlabored, Respiratory pattern is regular, symmetrical. GI: No deficits noted. No signs and/or symptoms were reported involving the gastrointestinal system. : Reports rash. Derm: Reports burning, itching. Musculoskeletal: No deficits noted. No signs and/or symptoms reported regarding the musculoskeletal system. Historical: - Allergies: 01:12 Codeine; vc1 01:12 Haloperidol; vc1 01:12 LITHIUM DERIVITIVES; vc1 - Home Meds: 01:12 None [Active]; vc1 - PMHx: 01:12 bells palsy; Bipolar Type 2- Schizo-affective; chronic back pain; vc1 - PSHx: 01:12 Tonsillectomy; vc1 - Immunization history:: Client reports having NOT received the Covid vaccine. - Social history:: Smoking status: Patient reports the use of cigarette tobacco products, smokes one-half pack cigarettes per day. - Family history:: not pertinent. - Hospitalizations: : No recent hospitalization is reported. Screenin:13 Abuse screen: Denies threats or abuse. Nutritional screening: No deficits noted. vc1 Tuberculosis screening: No symptoms or risk factors identified. Assessment: 01:22 Reassessment: No changes from previously documented assessment. Pt homeless; provided vc1 with paper pants, some body wash, and small packages of A\\T\\D ointment. Vital Signs: 01:10 Pulse 95; Resp 18; Temp 97.6; Pulse Ox 95% ; Weight 99.79 kg; Height 5 ft. 10 in. vc1 (177.80 cm); 01:10 Body Mass Index 31.57 (99.79 kg, 177.80 cm) vc1 ED Course: 00:19 Patient arrived in ED. jj6 00:28 Parker Farmer MD is Attending Physician. rn 01:12 Triage completed. vc1 01:13 Arm band placed on left wrist. vc1 01:22 No provider procedures requiring assistance completed. Patient did not have IV access vc1 during this emergency room visit. Administered Medications: No medications were administered Medication: 01:22 VIS not applicable for this client. vc1 Outcome: 01:13 Discharge ordered by . rn 01:22 Discharged to home ambulatory. vc1 01:22 Condition: good 01:22 Discharge instructions given to patient, Instructed on discharge instructions, follow up and referral plans. Demonstrated understanding of instructions, follow-up care. 01:23 Patient left the ED. vc1 Signatures: Parker Farmer MD MD rn Jeffries, Jennifer jj6 Oanh Irving RN RN vc1
[2022-04-06 02:03] VITALS: TEMP 97.6; O2SAT 95
== END 2022-04-06 01:23 | disposition home or self-care (01) ==
LOC: ER 00:16
DX: R21 Rash and other nonspecific skin eruption (principal); F25.9 Schizoaffective disorder, unspecified; Z59.00 Homelessness unspecified; F17.210 Nicotine dependence, cigarettes, uncomplicated
CPT/HCPCS: 99281

== ENCOUNTER 2022-12-22 17:53 | Emergency (ER) | payer OTHER ==
--- NOTE | 2022-12-22 18:22 | EDPHYS ---
Physician Documentation [facility] Name: Austin Mtz Age: 52 yrs Sex: Male : 1970 Arrival Date: 12/22/2022 Time: 17:53 Bed 18 Private MD: ED Physician Igor Navas HPI: 12/22 18:17 This 52 yrs old Male presents to ER via Ambulatory with complaints of Fever, ec2 Shortness Of Breath. 18:17 Patient arrives today for evaluation of occasional cough as well as bilateral feet ec2 pain. Patient reports that he is a smoker and has an occasional cough. Denies any shortness of breath, denies any nausea or vomiting. Reports that he has subjective fevers. Patient reports no abdominal pain. States that he has bilateral feet pain due to his frequent walking as he is homeless.. Historical: - Allergies: 18:06 Haloperidol; ll1 18:06 Codeine; ll1 18:06 LITHIUM DERIVITIVES; ll1 - PMHx: 18:06 bells palsy; Bipolar Type 2- Schizo-affective; chronic back pain; ll1 - PSHx: 18:06 Tonsillectomy; ll1 - Immunization history:: Adult Immunizations up to date. - Social history:: Smoking status: Patient reports the use of cigarette tobacco products, smokes one pack cigarettes per day. ROS: 18:17 Constitutional: as per hpi ec2 Exam: 18:17 Constitutional: GEN: NAD Head: atraumatic Eyes: EOMI Ears: External ears are ec2 normal. CV: regular rate LUNGS: no respiratory distress, no wheezes, no rales, no rhonchi ABD: non-distended SKIN: dry cracked feet bilaterally, no erythema, No warmth, no discharge MSK: no evidence of trauma NEURO: moves all extremities equally Vital Signs: 18:07 BP 117 / 83; Pulse 79; Resp 18; Temp 98.2; Pulse Ox 98% ; Weight 108.86 kg; Height 5 ll1 ft. 10 in. ; Pain 8/10; 18:30 BP 120 / 81; Pulse 77; Resp 17; Temp 98.1(O); Pulse Ox 99% on R/A; rs5 18:07 Body Mass Index 34.44 (108.86 kg, 177.8 cm) ll1 18:07 Pain Scale: Adult ll1 MDM: 17:59 Patient medically screened. ec2 18:17 Data reviewed: vital signs. ED course: Patient arrives today due to concern for ec2 occasional cough as well as feet pain. Examination remarkable for nontoxic individual with reassuring vital signs who does not have any focal lung sounds on pulmonary exam. I do not feel a chest x-ray would be beneficial in the setting of the have a low index suspicion for pneumonia, low suspicion for viral process as well. In regards to the feet pain I have a low suspicion for acute bacterial infection. Additionally low suspicion for fungal process however does have foul-smelling feet and is homeless and is predisposed to fungal feet infection. Will discharge with albuterol and Lotrimin.. Administered Medications: 18:40 Drug: Albuterol HFA Inhalation Inhaler 2 puffs Inhalation once Route: Inhalation; rs5 18:40 Drug: miconazole Tincture 2 % 1 application Topical once {Note: Bottom of feet bilat .} rs5 Route: Topical; Site: affected area; 19:00 Follow up: Response: No adverse reaction rs5 18:48 Not Given (not availablee): lotrimin afaerosol 2 % 1 application Topical once rs5 Disposition Summary: 12/22/22 18:22 Discharge Ordered Notes: Location: Home ec2 Condition: Stable ec2 Diagnosis - Cough ec2 - Cracked Feet ec2 Discharge Instructions: - Discharge Summary Sheet ec2 - Cough, Adult ec2 Forms: - Medication Reconciliation Form ec2 - Thank You Letter ec2 - Antibiotic Education ec2 - Prescription Opioid Use ec2 - Patient Portal Instructions ec2 - Leadership Thank You Letter ec2 Signatures: Ivelisse Bishop RN RN ll1 Oscar Blanchard RN RN rs5 Igor Navas MD MD ec2 Corrections: (The following items were deleted from the chart) 18:21 18:17 ED course: Patient arrives today due to concern for occasional cough as well as ec2 feet pain. Examination remarkable for nontoxic individual with reassuring vital signs who does not have any focal lung sounds on pulmonary exam. I do not feel a chest x-ray would be beneficial in the setting of the have a low index suspicion for pneumonia, low suspicion for viral process as well. In regards to the feet pain I have a low suspicion for acute bacterial infection.. ec2
--- NOTE | 2022-12-22 18:22 | ER ---
Nurse's Notes [facility] Name: Austin Mtz Age: 52 yrs Sex: Male : 1970 Arrival Date: 12/22/2022 Time: 17:53 Bed 18 Private MD: Diagnosis: Cough;Cracked Feet Presentation: 12/22 18:07 Coronavirus screen: Vaccine status: Patient reports being unvaccinated. Client denies ll1 travel out of the [place] in the last 14 days. cough unrelated to allergies, fatigue, fever, headache, muscle pain, shortness of breath, Client presents with at least one sign or symptom that may indicate coronavirus-19. Standard/surgical mask placed on the client. Ebola Screen: Patient denies travel to an Ebola-affected area in the 21 days before illness onset. 18:07 Method Of Arrival: Ambulatory ll1 18:09 Chief complaint: Patient states: Fever, dry cough, SOB, dizzy, feet/body aches for 2 ll1 days. Initial Sepsis Screen: Does the patient meet any 2 criteria? No. Patient's initial sepsis screen is negative. Does the patient have a suspected source of infection? No. Patient's initial sepsis screen is negative. Risk Assessment: Do you want to hurt yourself or someone else? Patient reports no desire to harm self or others. Onset of symptoms was December 20, 2022. 18:09 Acuity: FREDIS 3 ll1 Triage Assessment: 18:10 General: Appears uncomfortable, Behavior is calm, cooperative, appropriate for age. ll1 General: Reports fever for fatigue for. Pain: Complains of pain in right foot and left foot Pain currently is 8 out of 10 on a pain scale. Quality of pain is described as aching, throbbing. Neuro: Reports dizziness, headache a syncopal episode weakness. Respiratory: Reports shortness of breath cough that is. Musculoskeletal: Reports pain in right foot and left foot. Historical: - Allergies: 18:06 Haloperidol; ll1 18:06 Codeine; ll1 18:06 LITHIUM DERIVITIVES; ll1 - PMHx: 18:06 bells palsy; Bipolar Type 2- Schizo-affective; chronic back pain; ll1 - PSHx: 18:06 Tonsillectomy; ll1 - Immunization history:: Adult Immunizations up to date. - Social history:: Smoking status: Patient reports the use of cigarette tobacco products, smokes one pack cigarettes per day. Screenin:07 [facility] ED Fall Risk Assessment (Adult) History of falling in the last 3 months, rs5 including since admission No falls in past 3 months (0 pts) Confusion or Disorientation No (0 pts) Intoxicated or Sedated No (0 pts) Impaired Gait No (0 pts) Mobility Assist Device Used No (0 pt) Altered Elimination No (0 pt) Score/Fall Risk Level 0 - 2 = Low Risk Oriented to surroundings, Maintained a safe environment. 18:07 Abuse screen: Denies threats or abuse. Nutritional screening: No deficits noted. rs5 Tuberculosis screening: No symptoms or risk factors identified. Assessment: 18:07 General: Appears in no apparent distress. comfortable, Behavior is calm, cooperative. rs5 Pain: Denies pain. Neuro: Level of Consciousness is awake, alert, obeys commands, Oriented to person, place, time, situation. Cardiovascular: Heart tones S1 S2 present Rhythm is regular. Respiratory: Airway is patent Respiratory effort is even, unlabored, Respiratory pattern is regular, symmetrical, Breath sounds are clear bilaterally. GI: Abdomen is round non-distended, Bowel sounds present X 4 quads. Abd is soft and non tender X 4 quads. 18:07 : No signs and/or symptoms were reported regarding the genitourinary system. EENT: No rs5 signs and/or symptoms were reported regarding the EENT system. Derm: Skin is intact, Skin is pink, warm \T\ dry. Musculoskeletal: Range of motion: intact in all extremities, Bottom of feet is dry and cracked bilat. Pt reports discomfort to bottom of feet. Vital Signs: 18:07 BP 117 / 83; Pulse 79; Resp 18; Temp 98.2; Pulse Ox 98% ; Weight 108.86 kg; Height 5 ll1 ft. 10 in. ; Pain 8/10; 18:30 BP 120 / 81; Pulse 77; Resp 17; Temp 98.1(O); Pulse Ox 99% on R/A; rs5 18:07 Body Mass Index 34.44 (108.86 kg, 177.8 cm) ll1 18:07 Pain Scale: Adult ll1 ED Course: 17:59 Patient arrived in ED. im 17:59 Igor Navas MD is Attending Physician. ec2 18:07 Arm band placed on Patient placed in an exam room, on a stretcher. ll1 18:07 Patient has correct armband on for positive identification. Placed in gown. Bed in low rs5 position. Side rails up X2. 18:10 Triage completed. ll1 18:14 Oscar Blanchard, RN is Primary Nurse. rs5 19:00 No provider procedures requiring assistance completed. rs5 19:00 Patient did not have IV access during this emergency room visit. rs5 Administered Medications: 18:40 Drug: Albuterol HFA Inhalation Inhaler 2 puffs Inhalation once Route: Inhalation; rs5 18:40 Drug: miconazole Tincture 2 % 1 application Topical once {Note: Bottom of feet bilat .} rs5 Route: Topical; Site: affected area; 19:00 Follow up: Response: No adverse reaction rs5 18:48 Not Given (not availablee): lotrimin afaerosol 2 % 1 application Topical once rs5 Medication: 19:00 VIS not applicable for this client. rs5 Outcome: 18:22 Discharge ordered by . ec2 19:00 Discharged to home ambulatory, rs5 19:00 Condition: stable 19:00 Discharge instructions given to patient, Instructed on discharge instructions, follow up and referral plans. 19:01 Patient left the ED. rs5 Signatures: Ivelisse Bishop RN RN ll1 Oscar Blanchard, RN RN rs5 Liz Gallardo Edwin, MD MD ec2 Corrections: (The following items were deleted from the chart) 18:11 18:07 BP 117 / 83; Pulse 79bpm; Resp 18bpm; Pulse Ox 98%; Pain 8/10, Adult; ll1 ll1
[2022-12-22] MEDS ORDERED: ALBUTEROL INHALER 60 PUFF/8 GM IH ONE (18:50)
[2022-12-22 19:08] VITALS: BP 117/83; TEMP 98.2; O2SAT 98
== END 2022-12-22 19:01 | disposition home or self-care (01) ==
LOC: ER 17:53
DX: R05.9 Cough, unspecified (principal); L85.3 Xerosis cutis; F17.210 Nicotine dependence, cigarettes, uncomplicated
CPT/HCPCS: 99284

== ENCOUNTER 2022-12-23 22:44 | Emergency (ER) | payer OTHER, SELFPAY ==
--- NOTE | 2022-12-23 23:14 | EDPHYS ---
Physician Documentation [facility] Name: Austin Mtz Age: 52 yrs Sex: Male : 1970 Arrival Date: 12/23/2022 Time: 22:44 Bed IW1 Private MD: ED Physician Toi Laughlin HPI: 12/23 23:11 This 52 yrs old Male presents to ER via Unassigned with complaints of Foot Pain. sp3 23:11 52-year-old male with history of bipolar disease now presents to the ED again for sp3 "cracked feet". Patient was seen yesterday for the same thing. Today he is requesting new socks and states it is really cold outside and he is looking for a place to stay. He denies any other somatic symptoms including headache, fever, URI symptoms, chest pain, shortness of breath, bleeding, abdominal pain, vomiting, diarrhea, skin rash, or any other signs or symptoms on ROS at this time.. Historical: - Allergies: 23:14 Codeine; pf1 23:14 Haloperidol; pf1 23:14 LITHIUM DERIVITIVES; pf1 - PMHx: 23:14 bells palsy; Bipolar Type 2- Schizo-affective; chronic back pain; pf1 - PSHx: 23:14 Tonsillectomy; pf1 - Immunization history:: Adult Immunizations not up to date, Client reports having NOT received the Covid vaccine. Last tetanus immunization: unknown. - Social history:: Smoking status: Patient reports the use of cigarette tobacco products, smokes one-half pack cigarettes per day, Patient/guardian denies using alcohol, street drugs. ROS: 23:12 Constitutional: Negative for fever, chills, and weight loss, Eyes: Negative for injury, sp3 pain, redness, and discharge, ENT: Negative for injury, pain, and discharge, Neck: Negative for injury, pain, and swelling, Cardiovascular: Negative for chest pain, palpitations, and edema, Respiratory: Negative for shortness of breath, cough, wheezing, and pleuritic chest pain, Abdomen/GI: Negative for abdominal pain, nausea, vomiting, diarrhea, and constipation, Back: Negative for injury and pain, : Negative for injury, bleeding, discharge, and swelling, Skin: Negative for injury, rash, and discoloration, Neuro: Negative for headache, weakness, numbness, tingling, and seizure, Psych: Negative for depression, anxiety, suicide ideation, homicidal ideation, and hallucinations, Allergy/Immunology: Negative for hives, rash, and allergies, Endocrine: Negative for neck swelling, polydipsia, polyuria, polyphagia, and marked weight changes, Hematologic/Lymphatic: Negative for swollen nodes, abnormal bleeding, and unusual bruising, 23:12 All other systems are negative, Exam: 23:12 Constitutional: This is a well developed, well nourished patient who is awake, alert, sp3 and in no acute distress. Head/Face: Normocephalic, atraumatic. Eyes: Pupils equal round and reactive to light, extra-ocular motions intact. Lids and lashes normal. Conjunctiva and sclera are non-icteric and not injected. Cornea within normal limits. Periorbital areas with no swelling, redness, or edema. Neck: Trachea midline, no thyromegaly or masses palpated, and no cervical lymphadenopathy. Supple, full range of motion without nuchal rigidity, or vertebral point tenderness. No Meningismus. Chest/axilla: Normal chest wall appearance and motion. Nontender with no deformity. No lesions are appreciated. Cardiovascular: Regular rate and rhythm with a normal S1 and S2. No gallops, murmurs, or rubs. Normal PMI, no JVD. No pulse deficits. Respiratory: Lungs have equal breath sounds bilaterally, clear to auscultation and percussion. No rales, rhonchi or wheezes noted. No increased work of breathing, no retractions or nasal flaring. Abdomen/GI: Soft, non-tender, with normal bowel sounds. No distension or tympany. No guarding or rebound. No evidence of tenderness throughout. Back: No spinal tenderness. No costovertebral tenderness. Full range of motion. Neuro: Awake and alert, GCS 15, oriented to person, place, time, and situation. Cranial nerves II-XII grossly intact. Motor strength 5/5 in all extremities. Sensory grossly intact. Cerebellar exam normal. Normal gait. Psych: Awake, alert, with orientation to person, place and time. Behavior, mood, and affect are within normal limits. 23:12 Musculoskeletal/extremity: Wet and wrinkled lower extremities consistent with being wet. Pulses are normal neurovascular exam is also normal. No breaks in the skin noted. No evidence of trench foot.. Vital Signs: 23:11 BP 128 / 62; Pulse 80; Resp 16; Temp 98; Pulse Ox 100% on R/A; Weight 108.86 kg; Height pf1 5 ft. 10 in. ; Pain 8/10; 23:11 Body Mass Index 34.44 (108.86 kg, 177.8 cm) pf1 23:11 Pain Scale: Adult pf1 MDM: 23:07 Patient medically screened. sp3 23:13 Data reviewed: vital signs, nurses notes. ED course: We will give patient new socks and sp3 safely discharge him. No emergency, cellulitis, trench foot, fracture, or any other pathology present.. Administered Medications: No medications were administered Disposition Summary: 12/23/22 23:14 Discharge Ordered Notes: Location: Home sp3 Condition: Stable sp3 Diagnosis - Foot pain, wet feet sp3 Followup: sp3 - With: Private Physician - When: Upon discharge from the Emergency Department - Reason: Continuance of care Discharge Instructions: - Discharge Summary Sheet sp3 - Personal Hygiene sp3 Forms: - Medication Reconciliation Form sp3 - Thank You Letter sp3 - Antibiotic Education sp3 - Prescription Opioid Use sp3 - Patient Portal Instructions sp3 - Leadership Thank You Letter sp3 Signatures: Toi Laughlin MD MD sp3 Soni Irizarry RN RN pf1
--- NOTE | 2022-12-23 23:21 | ER ---
Nurse's Notes [facility] Name: Austin Mtz Age: 52 yrs Sex: Male : 1970 Arrival Date: 12/23/2022 Time: 22:44 Bed IW1 Private MD: Diagnosis: Foot pain, wet feet Presentation: 12/23 23:11 Chief complaint: Patient states: left foot pain of 8,onset 2 months, worse in the past pf1 2 days. Patient stated has been wearing wet shoes and socks. Coronavirus screen: Vaccine status: Patient reports receiving the 2nd dose of the covid vaccine. Client denies travel out of the [place] in the last 14 days. At this time, the client does not indicate any symptoms associated with coronavirus-19. Ebola Screen: Patient negative for fever greater than or equal to 101.5 degrees Fahrenheit, and additional compatible Ebola Virus Disease symptoms. Initial Sepsis Screen: Does the patient meet any 2 criteria? No. Patient's initial sepsis screen is negative. Does the patient have a suspected source of infection? No. Patient's initial sepsis screen is negative. Risk Assessment: Do you want to hurt yourself or someone else? Patient reports no desire to harm self or others. 23:11 Method Of Arrival: Ambulatory pf1 23:11 Acuity: FREDIS 5 pf1 Historical: - Allergies: 23:14 Codeine; pf1 23:14 Haloperidol; pf1 23:14 LITHIUM DERIVITIVES; pf1 - PMHx: 23:14 bells palsy; Bipolar Type 2- Schizo-affective; chronic back pain; pf1 - PSHx: 23:14 Tonsillectomy; pf1 - Immunization history:: Adult Immunizations not up to date, Client reports having NOT received the Covid vaccine. Last tetanus immunization: unknown. - Social history:: Smoking status: Patient reports the use of cigarette tobacco products, smokes one-half pack cigarettes per day, Patient/guardian denies using alcohol, street drugs. Screenin:12 [facility] ED Fall Risk Assessment (Adult) History of falling in the last 3 months, pf1 including since admission No falls in past 3 months (0 pts) Confusion or Disorientation No (0 pts) Intoxicated or Sedated No (0 pts) Impaired Gait No (0 pts) Mobility Assist Device Used No (0 pt) Altered Elimination No (0 pt) Score/Fall Risk Level 0 - 2 = Low Risk Oriented to surroundings, Maintained a safe environment, Educated pt \T\ family on fall prevention, incl call for assistance when getting out of bed, Assessed \T\ reinforced patient's understanding of fall precautions, Provided non-skid footwear, Hourly rounding (assess needs \T\ fall precautionary measures) done, Used ambulatory aids as needed (educated on \T\ assisted with), Used gait belt as appropriate. 23:12 Abuse screen: Denies threats or abuse. Nutritional screening: No deficits noted. pf1 Tuberculosis screening: No symptoms or risk factors identified. Assessment: 23:12 General: Appears in no apparent distress. comfortable, well developed, Behavior is pf1 calm, cooperative, appropriate for age, quiet. 23:12 Pain: Complains of pain in left foot Pain currently is 8 out of 10 on a pain scale. pf1 Neuro: No deficits noted. 23:12 Cardiovascular: No deficits noted. Capillary refill < 3 seconds Patient's skin is warm pf1 and dry. Respiratory: No deficits noted. Airway is patent Respiratory effort is even, unlabored, Respiratory pattern is regular, symmetrical. GI: No deficits noted. No signs and/or symptoms were reported involving the gastrointestinal system. : No deficits noted. No signs and/or symptoms were reported regarding the genitourinary system. EENT: No deficits noted. No signs and/or symptoms were reported regarding the EENT system. Musculoskeletal: Reports pain in left foot. Vital Signs: 23:11 BP 128 / 62; Pulse 80; Resp 16; Temp 98; Pulse Ox 100% on R/A; Weight 108.86 kg; Height pf1 5 ft. 10 in. ; Pain 8/10; 23:11 Body Mass Index 34.44 (108.86 kg, 177.8 cm) pf1 23:11 Pain Scale: Adult pf1 ED Course: 22:46 Patient arrived in ED. gm2 22:51 Toi Laughlin MD is Attending Physician. sp3 23:12 Patient has correct armband on for positive identification. pf1 23:12 Arm band placed on right wrist. pf1 23:14 Triage completed. pf1 23:20 Provided Education on: skin hygiene of foot care. pf1 23:20 No provider procedures requiring assistance completed. Patient did not have IV access pf1 during this emergency room visit. Administered Medications: No medications were administered Medication: 23:12 VIS not applicable for this client. pf1 Outcome: 23:14 Discharge ordered by . sp3 23:20 Discharged to home ambulatory, pf1 23:20 Condition: unchanged 23:20 Discharge instructions given to patient, Instructed on discharge instructions, follow up and referral plans. Demonstrated understanding of instructions, follow-up care, 23:20 Patient left the ED. pf1 Signatures: Toi Laughlin MD MD sp3 Soni Irizarry RN RN pf1 Sarah Gloria 2 Corrections: (The following items were deleted from the chart) 12/24 07:21 11 23:12 Pain: Complains of pain in left foot Pain currently is 5 out of 10 on a pf1 pain scale. pf1
[2022-12-23 23:25] VITALS: BP 128/62; TEMP 98; O2SAT 100
== END 2022-12-23 23:20 | disposition home or self-care (01) ==
LOC: ER 22:44
DX: M79.672 Pain in left foot (principal); M79.671 Pain in right foot; T69.022A Immersion foot, left foot, initial encounter; T69.021A Immersion foot, right foot, initial encounter; F17.210 Nicotine dependence, cigarettes, uncomplicated; F25.0 Schizoaffective disorder, bipolar type; Z88.5 Allergy status to narcotic agent; Z88.8 Allergy status to other drugs, medicaments and biological substances
CPT/HCPCS: 99282

== ENCOUNTER 2023-01-05 00:59 | Emergency (ER) | payer OTHER ==
[2023-01-05 02:10] LABS: Absolute Lymphocytes (CBC) 2.7 K/uL (0.7-4.9); Hematocrit 44.5 % (39.6-49.0); Lymphocytes % 29.2 % (15.3-44.8); MCV 88.7 fL (80-100); MPV 9.2 fL (7.6-11.3); Platelets 223 thou/uL (152-406); RBC Red Blood Cell Count 5.02 M/uL (4.33-5.43)
[2023-01-05 02:54] LABS: Barbiturates NEGATIVE (NEGATIVE); Benzodiazepines NEGATIVE (NEGATIVE); Cocaine NEGATIVE (NEGATIVE); METHAMPHETAM NEGATIVE (NEGATIVE); Methadone NEGATIVE (NEGATIVE); Opiates NEGATIVE (NEGATIVE); Phencyclidine NEGATIVE (NEGATIVE); Specific Gravity 1.009 (1.005-1.030); THC Cannibis POSITIVE (NEGATIVE); Urine Bacteria <20 /HPF (<20); Urine Bilirubin NEGATIVE (Negative); Urine Blood Trace (Negative); Urine Clarity Clear (Clear); Urine Color Light-Yellow (Yellow); Urine Glucose NEGATIVE (Negative); Urine Mucus Slight /HPF (None Seen); Urine Protein NEGATIVE (Negative); Urine RBC <5 /HPF (None Seen); Urine Urobilinogen Normal (Normal); Urine pH 5.5 (5.0-7.0)
[2023-01-05 02:55] LABS: ALT/SGPT 25 U/L (16-61); AST/SGOT 13 U/L (15-37); Albumin 3.5 g/dL (3.4-5.0); Alkaline Phosphatase 97 U/L (45-117); BUN Blood Urea Nitrogen 11 mg/dL (7-18); Bicarbonate 27 mEq/L (21-32); Bilirubin Direct 0.2 mg/dL (0-0.2); Bilirubin Indirect, Calculated 0.6 mg/dL (0.2-0.8); Bilirubin Total 0.8 mg/dL (0.2-1.0); Glomerular Filtration Rate 103 ml/min (=/>90); Glucose Level 109 mg/dL (74-106); Potassium 3.6 mEq/L (3.5-5.1); Protein, Total 6.7 g/dL (6.4-8.2); Sodium Level 139 mEq/L (136-145)
--- NOTE | 2023-01-05 03:07 | ER ---
Nurse's Notes [facility] Name: Austin Mtz Age: 52 yrs Sex: Male : 1970 Arrival Date: 01/05/2023 Time: 00:59 Bed 6 Private MD: Diagnosis: Bipolar disorder, unspecified;Schizoaffective disorder, bipolar type Presentation: 01/05 01:04 Chief complaint: Patient states: seeking mental health evaluation. has been homeless rv for a while now. no support from family/relatives/friends. Coronavirus screen: At this time, the client does not indicate any symptoms associated with coronavirus-19. Ebola Screen: No symptoms or risks identified at this time. Initial Sepsis Screen: Does the patient meet any 2 criteria? No. Patient's initial sepsis screen is negative. Does the patient have a suspected source of infection? No. Patient's initial sepsis screen is negative. Risk Assessment: Do you want to hurt yourself or someone else? Patient reports no desire to harm self or others. Onset of symptoms was January 05, 2023. 01:04 Method Of Arrival: Ambulatory rv 01:04 Acuity: FREDIS 2 rv Triage Assessment: 01:14 General: Appears in no apparent distress. Behavior is calm, cooperative. Pain: Denies rv pain. Neuro: Level of Consciousness is awake, alert, obeys commands, Oriented to person, place, time, situation. Cardiovascular: Capillary refill < 3 seconds Patient's skin is warm and dry. Respiratory: Airway is patent Respiratory effort is even, unlabored. Derm: Skin is intact. Historical: - Allergies: 01:14 Codeine; rv 01:14 Haloperidol; rv 01:14 LITHIUM DERIVITIVES; rv - PMHx: 01:14 bells palsy; Bipolar Type 2- Schizo-affective; chronic back pain; rv - PSHx: 01:14 Tonsillectomy; rv - Immunization history:: Adult Immunizations unknown. - Social history:: Smoking status: Patient reports the use of cigarette tobacco products, smokes one pack cigarettes per day. - Family history:: not pertinent. - Hospitalizations: : No recent hospitalization is reported. Screenin:20 [facility] ED Fall Risk Assessment (Adult) History of falling in the last 3 months, km8 including since admission No falls in past 3 months (0 pts) Confusion or Disorientation No (0 pts) Intoxicated or Sedated No (0 pts) Impaired Gait No (0 pts) Mobility Assist Device Used No (0 pt) Altered Elimination No (0 pt) Score/Fall Risk Level 0 - 2 = Low Risk Oriented to surroundings, Maintained a safe environment, Educated pt \T\ family on fall prevention, incl call for assistance when getting out of bed, Assessed \T\ reinforced patient's understanding of fall precautions. Abuse screen: Denies threats or abuse. Denies injuries from another. Nutritional screening: No deficits noted. Tuberculosis screening: No symptoms or risk factors identified. Assessment: 01:20 General: Appears in no apparent distress. comfortable, Behavior is calm, cooperative, km8 appropriate for age. 01:20 Pain: Denies pain. Neuro: Danielson Agitation-Sedation Scale (RASS): 0 - Alert and Calm km8 Level of Consciousness is awake, alert, obeys commands, Oriented to person, place, time, situation. Cardiovascular: Denies chest pain, shortness of breath, Capillary refill < 3 seconds Patient's skin is warm and dry. Respiratory: Airway is patent Respiratory effort is even, unlabored, Respiratory pattern is regular, symmetrical. GI: No signs and/or symptoms were reported involving the gastrointestinal system. : No signs and/or symptoms were reported regarding the genitourinary system. EENT: No signs and/or symptoms were reported regarding the EENT system. Derm: No signs and/or symptoms reported regarding the dermatologic system. Skin is intact, is healthy with good turgor, Skin is dry, Skin is pink, warm \T\ dry. normal, Skin temperature is warm. Musculoskeletal: No signs and/or symptoms reported regarding the musculoskeletal system. Range of motion: intact in all extremities. 03:20 Reassessment: No changes from previously documented assessment. Patient and/or family vc1 updated on plan of care and expected duration. Pain level reassessed. Patient is alert, oriented x 3, equal unlabored respirations, skin warm/dry/pink. 03:58 General: report to Diana Weeks from [facility]; per Diana pt does not meet km8 inpatient criteria at this time; Dr. Farmer notified. 05:29 Reassessment: No changes from previously documented assessment. Patient and/or family vc1 updated on plan of care and expected duration. Pain level reassessed. Patient is alert, oriented x 3, equal unlabored respirations, skin warm/dry/pink. 06:33 Reassessment: Patient appears in no apparent distress at this time. No changes from km8 previously documented assessment. Patient and/or family updated on plan of care and expected duration. Pain level reassessed. Patient is alert, oriented x 3, equal unlabored respirations, skin warm/dry/pink. 06:51 Reassessment: gave report to Ct from [facility]. km8 07:00 Reassessment: Patient appears in no apparent distress at this time. No changes from kc6 previously documented assessment. Patient and/or family updated on plan of care and expected duration. Pain level reassessed. Patient is alert, oriented x 3, equal unlabored respirations, skin warm/dry/pink. 08:40 Reassessment: Patient appears in no apparent distress at this time. Patient and/or ph family updated on plan of care and expected duration. Pain level reassessed. Pt resting quietly w/ eyes closed. 09:55 Reassessment: Patient appears in no apparent distress at this time. No changes from kc6 previously documented assessment. Patient and/or family updated on plan of care and expected duration. Pain level reassessed. Patient is alert, oriented x 3, equal unlabored respirations, skin warm/dry/pink. 10:55 Reassessment: Patient appears in no apparent distress at this time. No changes from kc6 previously documented assessment. Patient and/or family updated on plan of care and expected duration. Pain level reassessed. Patient is alert, oriented x 3, equal unlabored respirations, skin warm/dry/pink. Vital Signs: 01:04 BP 115 / 96; Pulse 77; Resp 17; Temp 98; Pulse Ox 99% ; Weight 99.79 kg; Height 5 ft. 9 rv in. ; 02:00 BP 102 / 64; Pulse 52; Resp 17; Pulse Ox 95% ; vc1 03:00 BP 104 / 59; Pulse 52; Resp 18; Pulse Ox 96% ; vc1 04:00 BP 104 / 72; Pulse 51; Resp 18; Pulse Ox 100% ; vc1 05:00 BP 107 / 58; Pulse 58; Resp 17; Pulse Ox 95% ; vc1 06:00 BP 104 / 61; Pulse 54; Resp 16; Pulse Ox 98% on R/A; km8 07:50 BP 114 / 61; Pulse 51; Resp 16 S; Pulse Ox 98% on R/A; kc6 01:04 Body Mass Index 32.49 (99.79 kg, 175.26 cm) rv [place] Coma Score: 01:20 Eye Response: spontaneous(4). Motor Response: obeys commands(6). Verbal Response: km8 oriented(5). Total: 15. ED Course: 01:01 Patient arrived in ED. jj6 01:03 Parker Farmer MD is Attending Physician. rn 01:14 Triage completed. rv 01:14 Arm band placed on right wrist. rv 01:20 Patient has correct armband on for positive identification. Bed in low position. Call km8 light in reach. Side rails up X 1. Client placed on continuous cardiac and pulse oximetry monitoring. NIBP monitoring applied. Door closed. Noise minimized. Lights dimmed. Warm blanket given. 01:20 Patient maintains SpO2 saturation greater than 95% on room air. km8 02:01 Inserted saline lock: 20 gauge in right antecubital area, using aseptic technique. vc1 Blood collected. 02:04 Acetaminophen Sent. vc1 02:04 Basic Metabolic Panel Sent. vc1 02:04 CBC with Diff Sent. vc1 02:04 ETOH Level Sent. vc1 02:04 Hepatic Function Sent. vc1 02:04 PT-INR Sent. vc1 02:04 Ptt, Activated Sent. vc1 02:04 Salicylate Sent. vc1 03:36 Faxed pt clinicals to the following facilities for placement; [facility] rv1 Behavioral, [facility]. 03:55 Nurse to Nurse with [facility]. rv1 05:29 Oanh [place], [place] is Primary Nurse. vc1 07:00 Report received from [place] Rojas \T\ [place] Hugo. kc6 Administered Medications: No medications were administered Medication: 03:20 VIS not applicable for this client. vc1 Outcome: 03:06 ER care complete, transfer ordered by . rn 11:27 Patient left the ED. ll1 Signatures: Parker Farmer MD MD rn Hall, Patricia, RN RN ph Vicente, Ronaldo, RN RN rv Lewis, Lynsay, RN RN [facility] Kisha Haq j6 Oanh Irving, RN RN vc1 Jia Perry, RN RN kc6 Janelle Her rv1 Crystal Power RN RN km8
--- NOTE | 2023-01-05 03:07 | EDPHYS ---
Physician Documentation [facility] Name: Austin Mtz Age: 52 yrs Sex: Male : 1970 Arrival Date: 01/05/2023 Time: 00:59 Bed 6 Private MD: ED Physician Parker Farmer HPI: 01/05 01:26 This 52 yrs old Male presents to ER via Ambulatory with complaints of Altered Mental rn Status. 01:26 The patient presents with Hallucinations, difficulties coping. Onset: The rn symptoms/episode began/occurred at an unknown time. Possible causes: Schizoaffective disorder and bipolar disorder, homelessness. Associated signs and symptoms: Pertinent negatives: abdominal pain, chest pain, headache, seizure, shortness of breath. Current symptoms: In the emergency department the patient's symptoms are unchanged from the initial presentation. The patient has experienced similar episodes in the past. The patient has not recently seen a physician. Patient reports coming in today to get psychiatric help. Reports bipolar disorder and schizoaffective disorder, not taking medication. Reports being homeless and is having trouble coping. He is not able to sleep. Denies suicidal or homicidal ideations. But does report hallucinations.. Historical: - Allergies: 01:14 Codeine; rv 01:14 Haloperidol; rv 01:14 LITHIUM DERIVITIVES; rv - PMHx: 01:14 bells palsy; Bipolar Type 2- Schizo-affective; chronic back pain; rv - PSHx: 01:14 Tonsillectomy; rv - Immunization history:: Adult Immunizations unknown. - Social history:: Smoking status: Patient reports the use of cigarette tobacco products, smokes one pack cigarettes per day. - Family history:: not pertinent. - Hospitalizations: : No recent hospitalization is reported. ROS: 01:26 Constitutional: Negative for fever, chills, and weight loss, Eyes: Negative for injury, rn pain, redness, and discharge, Neck: Negative for injury, pain, and swelling, Cardiovascular: Negative for chest pain, palpitations, and edema, Respiratory: Negative for shortness of breath, cough, wheezing, and pleuritic chest pain, Abdomen/GI: Negative for abdominal pain, nausea, vomiting, diarrhea, and constipation, Back: Negative for injury and pain, MS/Extremity: Negative for injury and deformity, Neuro: Negative for headache, weakness, numbness, tingling, and seizure, Exam: 01:26 Constitutional: This is a well developed, well nourished patient who is awake, alert, rn disheveled, pleasant Head/Face: Normocephalic, atraumatic. Respiratory: No increased work of breathing, no retractions or nasal flaring. Neuro: Awake and alert, GCS 15, ambulatory with normal gait 05:08 ECG was reviewed by the Attending Physician. rn Vital Signs: 01:04 BP 115 / 96; Pulse 77; Resp 17; Temp 98; Pulse Ox 99% ; Weight 99.79 kg; Height 5 ft. 9 rv in. ; 02:00 BP 102 / 64; Pulse 52; Resp 17; Pulse Ox 95% ; vc1 03:00 BP 104 / 59; Pulse 52; Resp 18; Pulse Ox 96% ; vc1 04:00 BP 104 / 72; Pulse 51; Resp 18; Pulse Ox 100% ; vc1 05:00 BP 107 / 58; Pulse 58; Resp 17; Pulse Ox 95% ; vc1 06:00 BP 104 / 61; Pulse 54; Resp 16; Pulse Ox 98% on R/A; km8 07:50 BP 114 / 61; Pulse 51; Resp 16 S; Pulse Ox 98% on R/A; kc6 01:04 Body Mass Index 32.49 (99.79 kg, 175.26 cm) rv Kell Coma Score: 01:20 Eye Response: spontaneous(4). Motor Response: obeys commands(6). Verbal Response: km8 oriented(5). Total: 15. MDM: 01:03 Patient medically screened. rn 02:57 Differential Diagnosis: electrolyte abnormality, volume depletion, Schizoaffective rn disorder, bipolar disorder. Data reviewed: vital signs, nurses notes, lab test result(s), and as a result, I will admit patient. Consideration of Admission/Observation Patient was admitted/placed on observation. Escalation of care including admission/observation considered. Counseling: I had a detailed discussion with the patient and/or guardian regarding the historical points, exam findings, and any diagnostic results supporting the discharge/admit diagnosis, lab results, the need for further work-up and treatment in the hospital, the need to transfer to another facility, [facility] beds at the [facility] does not immediately have the required specialist. 01/05 01:24 Order name: Acetaminophen; Complete Time: 02: rn 01/05 01:24 Order name: Basic Metabolic Panel; Complete Time: : rn 01/05 01:24 Order name: CBC with Diff; Complete Time: : rn 01/05 01:24 Order name: ETOH Level; Complete Time: 02: rn 01/05 01:24 Order name: Hepatic Function; Complete Time: 02: rn 01/05 01:24 Order name: PT-INR; Complete Time: : rn 01/05 01:24 Order name: Ptt, Activated; Complete Time: : rn 01/05 01:24 Order name: Salicylate; Complete Time: : rn 01/05 01:24 Order name: Urinalysis w/ reflexes; Complete Time: rn 01/05 01:24 Order name: Urine Drug Screen; Complete Time: : rn 01/05 01:24 Order name: EKG; Complete Time: 01: rn 01/05 01:24 Order name: EKG - Nurse/Tech; Complete Time: 02: rn 01/05 01:24 Order name: IV Saline Lock; Complete Time: 02: rn 01/05 01:24 Order name: Labs collected and sent; Complete Time: 02: rn 01/05 01:24 Order name: Suicide Screening ([place]); Complete Time: 02:04 rn EC:08 Rate is 59 beats/min. Rhythm is irregular. QRS [place] is Normal. OR interval is normal. rn QRS interval is prolonged at 152 msec. QT interval is normal. T waves are Normal. No ST changes noted. Clinical impression: Sinus bradycardia. Interpreted by me. Reviewed by me. Administered Medications: No medications were administered Disposition Summary: 01/05/23 03:06 Transfer Ordered Notes: Transfer Location: Psych Facility rn Reason: Higher level of care rn Condition: Stable rn Problem: an ongoing problem rn Symptoms: are unchanged rn Accepting Physician: (01/05/23 11:27) ll1 Diagnosis - Bipolar disorder, unspecified rn - Schizoaffective disorder, bipolar type rn Forms: - Medication Reconciliation Form rn - SBAR form rn Signatures: Dispatcher [employer] EDParker Wisdom MD MD rn Vicente, Ronaldo, RN RN rv Lewis, Lynsay, RN RN ll1 Corrections: (The following items were deleted from the chart) 11:27 03:06 Dr. canales ll1
[2023-01-05 11:45] VITALS: TEMP 98
[2023-01-05 11:54] VITALS: O2SAT 98
[2023-01-05 11:56] VITALS: BP 114/61
--- NOTE | 2023-01-07 16:54 | EKG ---
Test Date: 2023-01-05 Test Time: 02:09:32 Tare Weigher: LES MEASUREMENT RESULTS: Intervals: Rate: 59 MT: 156 QRSD: 152 QT: 492 QTc: 487 [place]: P: 58 MT: 156 QRS: -59 T: 41 INTERPRETIVE STATEMENTS: Sinus bradycardia with frequent premature ventricular complexes Right bundle branch block Left anterior fascicular block Bifascicular block Abnormal ECG Compared to ECG 09/30/2021 23:02:49 Ventricular premature complex(es) now present Right bundle-branch block now present Left anterior fascicular block now present Bifascicular block now present Left-axis deviation no longer present Intraventricular conduction delay no longer present Electronically Signed On 01-07-23 16:52:04 MAT REPAIRER by Aron Addison
== END 2023-01-05 11:27 ==
LOC: ER 00:59
DX: F25.0 Schizoaffective disorder, bipolar type (principal); Z59.00 Homelessness unspecified; F17.210 Nicotine dependence, cigarettes, uncomplicated; Z88.5 Allergy status to narcotic agent; Z88.8 Allergy status to other drugs, medicaments and biological substances
CPT/HCPCS: 36415; 80048; 80076; 80143; 80179; 80307; 81001; 82077; 85025; 85610; 85730; 93005; 99284

== ENCOUNTER 2024-06-07 19:26 | Emergency (ER) | payer OTHER ==
--- NOTE | 2024-06-08 00:02 | ER ---
Nurse's Notes [facility] Name: Austin Mtz Age: 54 yrs Sex: Male : 1970 Arrival Date: 06/07/2024 Time: 19:26 Bed 8 Private MD: Diagnosis: Pain in left toe(s) Presentation: 06/07 20:50 Chief complaint: Patient states: has left toe ulcers, unknown, states at least for al5 months now. states it has had pus and that is what brought him in. Coronavirus screen: At this time, the client does not indicate any symptoms associated with coronavirus-19. Ebola Screen: No symptoms or risks identified at this time. Initial Sepsis Screen: Does the patient meet any 2 criteria? No. Patient's initial sepsis screen is negative. Does the patient have a suspected source of infection? No. Patient's initial sepsis screen is negative. Risk Assessment: Do you want to hurt yourself or someone else? Patient reports no desire to harm self or others. Onset of symptoms is unknown. 20:50 Method Of Arrival: Ambulatory al5 20:50 Acuity: FREDIS 3 al5 Triage Assessment: 20:54 General: Appears in no apparent distress. comfortable, Behavior is calm, cooperative. al5 Pain: Complains of pain in plantar aspect of left first toe and Left first toenail Pain currently is 6 out of 10 on a pain scale. EENT: No signs and/or symptoms were reported regarding the EENT system. Neuro: Level of Consciousness is awake, alert, obeys commands, Oriented to person, place, time, situation. Cardiovascular: Capillary refill < 3 seconds Patient's skin is warm and dry. Respiratory: Airway is patent Respiratory effort is even, unlabored, Respiratory pattern is regular, symmetrical. GI: No signs and/or symptoms were reported involving the gastrointestinal system. : No signs and/or symptoms were reported regarding the genitourinary system. Derm: wound to the top and bottom of the L great toe. Musculoskeletal: Range of motion: intact in all extremities, Reports pain in plantar aspect of left first toe and Left first toenail. Historical: - Allergies: 20:54 Codeine; al5 20:54 Haloperidol; al5 20:54 LITHIUM DERIVITIVES; al5 - PMHx: 20:54 bells palsy; Bipolar Type 2- Schizo-affective; chronic back pain; al5 - PSHx: 20:54 Tonsillectomy; Adenoid excision; Myringotomy and insertion of tympanic ventilation tube;al5 - Immunization history:: Adult Immunizations up to date. - Infectious Disease History:: Denies. - Social history:: Smoking status: Patient reports the use of cigarette tobacco products, smokes one pack cigarettes per day. Screenin:56 [facility] ED Fall Risk Assessment (Adult) History of falling in the last 3 months, al5 including since admission No falls in past 3 months (0 pts) Confusion or Disorientation No (0 pts) Intoxicated or Sedated No (0 pts) Impaired Gait No (0 pts) Mobility Assist Device Used No (0 pt) Altered Elimination No (0 pt) Score/Fall Risk Level 0 - 2 = Low Risk Oriented to surroundings, Maintained a safe environment, Hourly rounding (assess needs \T\ fall precautionary measures) done. Abuse screen: Denies threats or abuse. Denies injuries from another. Nutritional screening: No deficits noted. Tuberculosis screening: No symptoms or risk factors identified. Assessment: 20:56 Reassessment: see triage assessment. al5 Vital Signs: 20:50 BP 135 / 87; Pulse 56; Resp 16; Temp 97.9; Pulse Ox 95% on R/A; Weight 112.67 kg; al5 Height 5 ft. 10 in. ; Pain 07/21; 06/08 00:15 BP 115 / 85; Pulse 57; Resp 18; Pulse Ox 98% ; cp4 06/07 20:50 Body Mass Index 35.64 (112.67 kg, 177.8 cm) al5 06/07 20:50 Pain Scale: Adult al5 ED Course: 06/07 19:28 Patient arrived in ED. jj6 19:33 Jonathan Alonzo FNP-C is [facility]. dr5 19:33 Garfield De La Torre MD is Attending Physician. dr5 20:54 Triage completed. al5 20:54 Arm band placed on right wrist. Patient placed in waiting room, in view of staff al5 members, Patient notified of wait time. 20:56 Patient has correct armband on for positive identification. Provided Education on: al5 notification of wait time. 20:56 No provider procedures requiring assistance completed. al5 22:51 Foot Left 3 View XRAY In Process Unspecified. EDMS 06/08 00:15 Sariah Rios is Primary Nurse. cp4 00:15 Patient did not have IV access during this emergency room visit. cp4 Administered Medications: No medications were administered Medication: 06/07 20:56 VIS not applicable for this client. al5 Outcome: 06/08 00:02 Discharge ordered by . dr5 00:15 Discharged to home ambulatory, cp4 00:15 Condition: stable 00:15 Discharge instructions given to patient, Instructed on discharge instructions, follow up and referral plans. medication usage, Demonstrated understanding of instructions, follow-up care, medications, Prescriptions given X 1, 00:17 Patient left the ED. cp4 Signatures: Dispatcher [employer] EDAL Kisha [id number] Sariah Rios cp4 Keri Noonan, RN RN al5 Jonathan Alonzo, ELECTROMECHANISMS DESIGN DRAFTER-C ELECTROMECHANISMS DESIGN DRAFTER-Cdr5 Corrections: (The following items were deleted from the chart) 06/07 20:55 20:54 PMHx: adenectomy; al5 al5
--- NOTE | 2024-06-08 00:02 | EDPHYS ---
Physician Documentation [facility] Name: Austin Mtz Age: 54 yrs Sex: Male : 1970 Arrival Date: 06/07/2024 Time: 19:26 Bed 8 Private MD: ED Physician Garfield De La Torre HPI: 06/08 00:27 This 54 yrs old Male presents to ER via Ambulatory with complaints of FOOT dr5 INFECTION. 00:27 Patient is a 54-year-old male with history of Lezama's palsy, bipolar type II dr5 schizoaffective disorder, and homelessness coming in for left great toe pain after kicking on curb. Patient reports that he has old ulcers on his feet that do not have drainage out of them. Patient is concerned about possible fracture. Historical: - Allergies: 06/07 20:54 Codeine; al5 20:54 Haloperidol; al5 20:54 LITHIUM DERIVITIVES; al5 - PMHx: 20:54 bells palsy; Bipolar Type 2- Schizo-affective; chronic back pain; al5 - PSHx: 20:54 Tonsillectomy; Adenoid excision; Myringotomy and insertion of tympanic ventilation tube;al5 - Immunization history:: Adult Immunizations up to date. - Infectious Disease History:: Denies. - Social history:: Smoking status: Patient reports the use of cigarette tobacco products, smokes one pack cigarettes per day. ROS: 06/08 00:27 Constitutional: as per hpi dr5 Exam: 00:27 Constitutional: This is a well developed, well nourished patient who is awake, alert, dr5 and in no acute distress. Head/Face: Normocephalic, atraumatic. Eyes: Pupils equal round and reactive to light, extra-ocular motions intact. Lids and lashes normal. Conjunctiva and sclera are non-icteric and not injected. Cornea within normal limits. Periorbital areas with no swelling, redness, or edema. Neck: Trachea midline, no thyromegaly or masses palpated, and no cervical lymphadenopathy. Supple, full range of motion without nuchal rigidity, or vertebral point tenderness. No Meningismus. Chest/axilla: Normal chest wall appearance and motion. Nontender with no deformity. No lesions are appreciated. Cardiovascular: Regular rate and rhythm with a normal S1 and S2. Normal PMI, no JVD. No pulse deficits. Respiratory: Lungs have equal breath sounds bilaterally, clear to auscultation. No rales, rhonchi or wheezes noted. No increased work of breathing, no retractions or nasal flaring. Back: No spinal tenderness. No costovertebral tenderness. Full range of motion. Skin: Warm, dry with normal turgor. Normal color with no rashes, no lesions, and no evidence of cellulitis. Neuro: Awake and alert, GCS 15, oriented to person, place, time, and situation. Cranial nerves II-XII grossly intact. Motor strength 5/5 in all extremities. Sensory grossly intact. Cerebellar exam normal. Normal gait. 00:27 Musculoskeletal/extremity: Extremities: noted in the left first toe and Left first toenail: swelling, ROM: no acute changes, Vital Signs: 06/07 20:50 BP 135 / 87; Pulse 56; Resp 16; Temp 97.9; Pulse Ox 95% on R/A; Weight 112.67 kg; al5 Height 5 ft. 10 in. ; Pain 6/10; 06/08 00:15 BP 115 / 85; Pulse 57; Resp 18; Pulse Ox 98% ; cp4 06/07 20:50 Body Mass Index 35.64 (112.67 kg, 177.8 cm) al5 06/07 20:50 Pain Scale: Adult al5 MDM: 06/07 19:33 Medical Screening Exam initiated dr5 06/08 00:27 Differential diagnosis: Fracture, sprain, strain. Data reviewed: vital signs, nurses dr5 notes, radiologic studies, plain films. I considered the following discharge prescriptions or medication management in the emergency department. Care significantly affected by the following chronic conditions: Lezama's palsy, bipolar, schizoaffective. Care significantly affected by the following Social Determinants of Health: Poor access to healthcare and/or lack of insurance, Poor access to transportation, Problems related to employment. Counseling: I had a detailed discussion with the patient and/or guardian regarding the historical points, exam findings, and any diagnostic results supporting the discharge/admit diagnosis, the presence of at least one elevated blood pressure reading (>120/80) during this emergency department visit, the need for outpatient follow up, for definitive care, a family practitioner, to return to the emergency department if symptoms worsen or persist or if there are any questions or concerns that arise at home. ED course: Patient's toe does not look infected on exam. X-ray does not reveal any fracture. No purulent drainage or tenderness to palpation noted on foot. Will start patient on antibiotics per patient's concern and mild redness. All questions answered. Will have patient follow-up primary care doctor.. 06/07 22:03 Order name: Foot Left 3 View XRAY dr5 Administered Medications: No medications were administered Disposition: 00:44 Co-signature as Attending Physician, Garfield De La Torre MD I reviewed the patient's care rt provided by the Advanced Practice Provider and agree with the diagnosis and treatment plan. Disposition Summary: 06/08/24 00:02 Discharge Ordered Notes: Location: Home dr5 Condition: Stable dr5 Diagnosis - Pain in left toe(s) dr5 Followup: dr5 - With: Emergency Department - When: As needed - Reason: Worsening of condition Followup: dr5 - With: Private Physician - When: 1 - 2 days - Reason: Recheck today's complaints, Continuance of care, Re-evaluation by your physician Discharge Instructions: - Discharge Summary Sheet dr5 - Musculoskeletal Pain dr5 Forms: - Medication Reconciliation Form dr5 - Antibiotic Education dr5 - Patient Portal Instructions dr5 - Leadership Thank You Letter dr5 Prescriptions: - Cephalexin 500 mg Oral Capsule - take 1 capsule ORAL route every 12 hours for 10 days; 20 capsule; Refills: 0, dr5 Product Selection Permitted Signatures: Dispatcher [employer] Garfield Wolfe MD MD rt Keri Noonan RN RN al5 Jonathan Alonzo, GROCERY STORE BAGGER-C GROCERY STORE BAGGER-Cdr5 Corrections: (The following items were deleted from the chart) 06/07 20:55 20:54 PMHx: adenectomy; al5 al5 22:03 22:03 Foot Left 3 View+RAD.[facility] 06/07 22:03 CBC+H.LAB.BRZ [facility]. [facility]:05 06/07 22:03 COMPREHENSIVE METABOLIC PANEL+C.LAB.BRZ ordered. [facility] 06/08 00:05 06/07 22:03 LACTATE+C.LAB.BRZ ordered. [facility]
--- NOTE | 2024-06-08 05:39 | RAD REPORT ---
EXAM: XR Left Foot Complete, 3 or More Views CLINICAL HISTORY: Swelling; Pain TECHNIQUE: Frontal, lateral and oblique views of the left foot. COMPARISON: No relevant prior studies available. FINDINGS: Bones/joints: Unremarkable. No acute fracture. No dislocation. Soft tissues: Mild generalized soft tissue swelling. No radiopaque foreign body. IMPRESSION: Mild generalized soft tissue swelling. No acute osseous abnormality. Electronically signed by: Itz Alonzo MD 06/07/2024 11:39 PM CDT RP Due to temporary technical issues with the PACS/8 [employer] reporting system, reports are being harsh d by the in-house radiologist without review as a courtesy to ensure prompt reporting the interpreting radiologist is fully responsible for the content of the report. Transcribed Date/Time: 06/08/2024 5:39 AM
[2024-06-09 11:07] VITALS: TEMP 97.9
[2024-06-09 11:08] VITALS: BP 115/85; O2SAT 98
== END 2024-06-08 00:17 | disposition home or self-care (01) ==
LOC: ER 19:26
DX: M79.675 Pain in left toe(s) (principal); Z59.00 Homelessness unspecified; F17.210 Nicotine dependence, cigarettes, uncomplicated
CPT/HCPCS: 85025; 99283

== ENCOUNTER 2024-11-10 00:28 | Observation (INO) | payer OTHER ==
[2024-11-10] MEDS ORDERED: NA CHLORIDE 0.9% 250 ML ONE (01:01)
[2024-11-10] MEDS ORDERED: ASPIRIN 81 MG CHEWABLE TABLET ONE ×2 (01:26)
[2024-11-10] MEDS ORDERED: FAMOTIDINE 20 MG/2 ML VIAL IV ONE (01:26)
[2024-11-10 01:27] LABS: Absolute Lymphocytes (CBC) 2.8 K/uL (0.7-4.9); Hematocrit 41.9 % (39.6-49.0); Hemoglobin 14.4 g/dL (13.6-17.9); MCH 29.6 pg (27.0-35.0); MCHC 34.4 g/dL (32.0-36.0); MCV 86.0 fL (80-100); MPV 9.1 fL (7.6-11.3); Nucleated RBC Absolute Count 0.0 (0-0); Nucleated Red Blood Cells % 0.2 % (0-0); RBC Red Blood Cell Count 4.87 M/uL (4.33-5.43); White Blood Count 8.50 thou/uL (4.3-10.9)
[2024-11-10 01:38] LABS: PT Prothrombin Time 12.8 SECONDS (10-13.0); Protime INR 1.14
[2024-11-10 01:47] LABS: ALT/SGPT 20.0 U/L (16-61); AST/SGOT 17.0 U/L (15-37); Albumin 3.5 g/dL (3.4-5.0); Albumin/Globulin Ratio 1.1 (1.1-1.8); Alkaline Phosphatase 100.0 U/L (45-117); Anion Gap 8.2 mEq/L (5.0-15.0); BUN Blood Urea Nitrogen 14.0 mg/dL (7-18); Bilirubin Indirect, Calculated 0.8 mg/dL (0.2-0.8); Globulin 3.2 g/dL (2.3-3.5); Glucose Level 131.0 mg/dL (74-106); Lipase 18.0 U/L (13-75); Magnesium 2.0 mg/dL (1.6-2.4); NT PRO-BNP 50.0 pg/mL (<125); Potassium 3.2 mEq/L (3.5-5.1); Troponin High Sensitivity 8.2 pg/mL (<58.9)
[2024-11-10] MEDS ORDERED: POTASSIUM 25 MEQ EFFERV TAB ONE (02:08)
[2024-11-10] MEDS ORDERED: ENOXAPARIN 100 MG/ML SYR SQ ONE (02:15)
--- NOTE | 2024-11-10 02:18 | ER ---
Nurse's Notes [facility] Name: Austin Mtz Age: 54 yrs Sex: Male : 1970 Arrival Date: 11/10/2024 Time: 00:28 Bed 8 Private MD: Diagnosis: Unstable angina;Hypokalemia;Tobacco abuse counseling;Tobacco use Presentation: 11/10 00:52 Chief complaint: Patient states: MID-STERNAL CHEST PAIN...STATES HE CHECKED B/P PRIOR br2 TO SMOKING HIS "CBD" AND IT WAS LOW. Coronavirus screen: Client denies travel out of the [place] in the last 14 days. Ebola Screen: Patient denies exposure to infectious person. Initial Sepsis Screen: Does the patient meet any 2 criteria? No. Patient's initial sepsis screen is negative. Does the patient have a suspected source of infection? No. Patient's initial sepsis screen is negative. Risk Assessment: Do you want to hurt yourself or someone else? Patient reports no desire to harm self or others. Onset of symptoms is unknown. 00:52 Method Of Arrival: Ambulatory br2 00:52 Acuity: FREDIS 3 br2 Triage Assessment: 00:54 General: Appears in no apparent distress. comfortable, Behavior is calm, cooperative. br2 Pain: Complains of pain in mid-sternal area Pain does not radiate. Pain currently is 2 out of 10 on a pain scale. Historical: - Allergies: 00:54 Codeine; br2 00:54 Haloperidol; br2 00:54 LITHIUM DERIVITIVES; br2 - PMHx: 00:54 bells palsy; Bipolar Type 2- Schizo-affective; chronic back pain; br2 - PSHx: 00:54 Adenoid excision; Myringotomy and insertion of tympanic ventilation tube; Tonsillectomy;br2 - Immunization history:: Adult Immunizations up to date. - Infectious Disease History:: Denies. - Social history:: Smoking status: Patient reports the use of cigarette tobacco products, smokes one-half pack cigarettes per day, Patient uses CBD, Patient/guardian denies using alcohol. - Family history:: not pertinent. Screenin:05 [facility] ED Fall Risk Assessment (Adult) History of falling in the last 3 months, kd3 including since admission No falls in past 3 months (0 pts) Confusion or Disorientation No (0 pts) Intoxicated or Sedated No (0 pts) Impaired Gait No (0 pts) Mobility Assist Device Used No (0 pt) Altered Elimination No (0 pt) Score/Fall Risk Level 0 - 2 = Low Risk Maintained a safe environment. Abuse screen: Denies threats or abuse. Denies injuries from another. Nutritional screening: No deficits noted. Tuberculosis screening: No symptoms or risk factors identified. Assessment: 02:04 General: Appears in no apparent distress. Behavior is calm, cooperative. Neuro: Level kd3 of Consciousness is awake, alert, obeys commands, Oriented to person, place, time, situation. Cardiovascular: Capillary refill < 3 seconds Patient's skin is warm and dry. Rhythm is sinus bradycardia. 03:33 Reassessment: Patient appears in no apparent distress at this time. Patient and/or bm8 family updated on plan of care and expected duration. Pain level reassessed. Patient is alert, oriented x 3, equal unlabored respirations, skin warm/dry/pink. Patient denies pain at this time. Patient states feeling better. Patient states symptoms have improved. Vital Signs: 00:52 BP 109 / 98; Pulse 65; Resp 18; Temp 98; Pulse Ox 98% ; Weight 108.86 kg; Height 5 ft. br2 9 in. ; Pain 2/10; 01:10 BP 105 / 62; Pulse 54; Resp 17; Temp 98; Pulse Ox 97% ; Pain 0/10; kd3 01:35 BP 103 / 65; Pulse 55; Resp 18; Pulse Ox 94% on R/A; kd3 02:05 BP 98 / 60; Pulse 50; Resp 17; Pulse Ox 97% on R/A; kd3 02:59 BP 102 / 70; Pulse 52; Resp 19; Pulse Ox 98% on R/A; kd3 03:33 BP 98 / 64; Pulse 48; Resp 17; Temp 98; Pulse Ox 98% ; Pain 0/10; bm8 00:52 Body Mass Index 35.44 (108.86 kg, 175.26 cm) br2 00:52 Pain Scale: Adult br2 01:10 Pain Scale: Adult kd3 03:33 Pain Scale: Adult bm8 [place] Coma Score: 03:33 Eye Response: spontaneous(4). Motor Response: obeys commands(6). Verbal Response: bm8 oriented(5). Total: 15. ED Course: 00:33 Patient arrived in ED. gm2 00:34 Geraldo Almaraz MD is Attending Physician. elvira 00:43 Mason Carr, RN is Primary Nurse. bm8 00:54 Triage completed. br2 00:54 Arm band placed on right wrist. br2 01:01 XRAY Chest (1 view) In Process Unspecified. EDMS 01:28 Inserted saline lock: 20 gauge in right antecubital area, using aseptic technique. kd3 Blood collected. Flushed with 10 mL NS. 02:04 Troponin HS Sent. kd3 02:05 Patient has correct armband on for positive identification. kd3 02:17 Marylin Sidhu MD is Hospitalizing Provider. elvira 03:33 Provided Education on: need for admission. bm8 03:33 No provider procedures requiring assistance completed. Patient admitted, IV remains in bm8 place. Administered Medications: 01:01 Drug: NS 0.9% IV 250 ml IV at per protocol once; to be given as a bolus over 30 minutes bm8 Route: IV; Rate: per protocol; Site: right antecubital; 02:20 Follow up: Response: No adverse reaction; IV Status: Completed infusion bm8 01:28 Drug: Aspirin PO Chewable Tablet 324 mg PO once; 81 mg tablets x 4 Route: PO; kd3 02:20 Follow up: Response: No adverse reaction bm8 01:29 Drug: Famotidine IVP 20 mg IVP once; dilute with 10 mL 0.9% NaCl; give over 2 minutes kd3 Route: IVP; Site: right antecubital; 02:20 Follow up: Response: No adverse reaction bm8 02:43 Drug: Potassium PO Effervescent Tablet 25 mEq PO once; dissolve in 4 ounces of water or kd3 juice Route: PO; 03:34 Follow up: Response: No adverse reaction bm8 02:43 Drug: Enoxaparin Sub-Q 100 mg Sub-Q once Route: Sub-Q; Site: abdomen; kd3 03:34 Follow up: Response: No adverse reaction bm8 02:43 Drug: Banana Bag - (Multivitamin IV 1 amp, NS 0.9% IV 1000 ml, Thiamine IV 100 mg, kd3 foLIC Acid IVPB 1 mg) IV at 125 ml/hr once Route: IV; Rate: 125 ml/hr; Site: right antecubital; 03:33 Follow up: Response: No adverse reaction; IV Status: Infusion continued upon admission bm8 Medication: 02:05 VIS not applicable for this client. kd3 Outcome: 02:18 Decision to Hospitalize by Provider. elvira 03:33 Admitted to Med/surg accompanied by nurse, via wheelchair, room 217, bm8 03:33 Condition: stable 03:33 Instructed on follow up and referral plans. the need for admit, Demonstrated understanding of instructions, follow-up care, medications, 03:54 Patient left the ED. kd3 Signatures: Dispatcher [employer] EDMS Geraldo Almaraz MD MD cha Doucette, Kyli RN RN kd3 Sarah Gloria 2 Mason Carr RN RN bm8 Shell Kim RN RN br2 Corrections: (The following items were deleted from the chart) 02:05 02:05 BP 68 / 60; Pulse 50bpm; Resp 17bpm; Pulse Ox 97% RA; kd3 kd3
--- NOTE | 2024-11-10 02:18 | EDPHYS ---
Physician Documentation [facility] Name: Austin Mtz Age: 54 yrs Sex: Male : 1970 Arrival Date: 11/10/2024 Time: 00:28 Bed 8 Private MD: HAL Physician Geraldo Almaraz HPI: 11/10 01:23 This 54 yrs old Male presents to ER via Ambulatory with complaints of Blood elvira Pressure Problem. 01:23 The patient or guardian reports chest pain that is located primarily in the anterior elvira chest wall, left. Onset: just prior to arrival, today. The patient presents with a history of heart skipping beats. Context: The symptoms occur with light activity. Onset: The symptoms/episode began/occurred just prior to arrival. Duration: The patient or guardian reports multiple episodes. The pain radiates to left back. Associated signs and symptoms: Pertinent positives: chest pain. Associated signs and symptoms: Pertinent positives: None. Severity of pain: At its worst the pain was moderate in the emergency department the pain is unchanged. Severity of symptoms: At their worst the symptoms were mild moderate in the emergency department the symptoms have improved moderately. Historical: - Allergies: 00:54 Codeine; br2 00:54 Haloperidol; br2 00:54 LITHIUM DERIVITIVES; br2 - PMHx: 00:54 bells palsy; Bipolar Type 2- Schizo-affective; chronic back pain; br2 - PSHx: 00:54 Adenoid excision; Myringotomy and insertion of tympanic ventilation tube; Tonsillectomy;br2 - Immunization history:: Adult Immunizations up to date. - Infectious Disease History:: Denies. - Social history:: Smoking status: Patient reports the use of cigarette tobacco products, smokes one-half pack cigarettes per day, Patient uses CBD, Patient/guardian denies using alcohol. - Family history:: not pertinent. ROS: 01:23 Constitutional: Negative for fever, chills, and weight loss, Eyes: Negative for injury, elvira pain, redness, and discharge, ENT: Negative for injury, pain, and discharge, Neck: Negative for injury, pain, and swelling, Respiratory: Negative for shortness of breath, cough, wheezing, and pleuritic chest pain, Abdomen/GI: Negative for abdominal pain, nausea, vomiting, diarrhea, and constipation, Back: Negative for injury and pain, : Negative for injury, bleeding, discharge, and swelling, MS/Extremity: Negative for injury and deformity, Skin: Negative for injury, rash, and discoloration, Neuro: Negative for headache, weakness, numbness, tingling, and seizure, Psych: Negative for depression, anxiety, suicide ideation, homicidal ideation, and hallucinations, Allergy/Immunology: Negative for hives, rash, and allergies, Endocrine: Negative for neck swelling, polydipsia, polyuria, polyphagia, and marked weight changes, Hematologic/Lymphatic: Negative for swollen nodes, abnormal bleeding, and unusual bruising, Cardiovascular: Positive for chest pain, of the chest, Exam: Constitutional: This is a well developed, well nourished patient who is awake, alert, elvira and in no acute distress. Head/Face: Normocephalic, atraumatic. Eyes: Pupils equal round and reactive to light, extra-ocular motions intact. Lids and lashes normal. Conjunctiva and sclera are non-icteric and not injected. Cornea within normal limits. Periorbital areas with no swelling, redness, or edema. ENT: Nares patent. No nasal discharge, no septal abnormalities noted. Tympanic membranes are normal and external auditory canals are clear. Oropharynx with no redness, swelling, or masses, exudates, or evidence of obstruction, uvula midline. Mucous membranes moist. Neck: Trachea midline, no thyromegaly or masses palpated, and no cervical lymphadenopathy. Supple, full range of motion without nuchal rigidity, or vertebral point tenderness. No Meningismus. Chest/axilla: Normal chest wall appearance and motion. Nontender with no deformity. No lesions are appreciated. Cardiovascular: Regular rate and rhythm with a normal S1 and S2. No gallops, murmurs, or rubs. Normal PMI, no JVD. No pulse deficits. Respiratory: Lungs have equal breath sounds bilaterally, clear to auscultation and percussion. No rales, rhonchi or wheezes noted. No increased work of breathing, no retractions or nasal flaring. Abdomen/GI: Soft, non-tender, with normal bowel sounds. No distension or tympany. No guarding or rebound. No evidence of tenderness throughout. Back: No spinal tenderness. No costovertebral tenderness. Full range of motion. Male : Normal genitalia with no discharge or lesions. Skin: Warm, dry with normal turgor. Normal color with no rashes, no lesions, and no evidence of cellulitis. MS/ Extremity: Pulses equal, no cyanosis. Neurovascular intact. Full, normal range of motion., bilateral aka Neuro: Awake and alert, GCS 15, oriented to person, place, time, and situation. Cranial nerves II-XII grossly intact. Motor strength 5/5 in all extremities. Sensory grossly intact. Cerebellar exam normal. Normal gait. Psych: Awake, alert, with orientation to person, place and time. Behavior, mood, and affect are within normal limits. 01:23 ECG was reviewed by the Attending Physician. 01:29 Musculoskeletal/extremity: DVT Exam: No signs of deep vein thrombosis. no pain, no elvira swelling, no tenderness, negative Homans' sign noted on exam, no appreciated bluish discoloration, no erythema, no increased warmth, 02:07 ECG was reviewed by the Attending Physician. [facility] Vital Signs: 00:52 BP 109 / 98; Pulse 65; Resp 18; Temp 98; Pulse Ox 98% ; Weight 108.86 kg; Height 5 ft. br2 9 in. ; Pain 2/10; 01:10 BP 105 / 62; Pulse 54; Resp 17; Temp 98; Pulse Ox 97% ; Pain 0/10; kd3 01:35 BP 103 / 65; Pulse 55; Resp 18; Pulse Ox 94% on R/A; kd3 02:05 BP 98 / 60; Pulse 50; Resp 17; Pulse Ox 97% on R/A; kd3 02:59 BP 102 / 70; Pulse 52; Resp 19; Pulse Ox 98% on R/A; kd3 03:33 BP 98 / 64; Pulse 48; Resp 17; Temp 98; Pulse Ox 98% ; Pain 0/10; bm8 00:52 Body Mass Index 35.44 (108.86 kg, 175.26 cm) br2 00:52 Pain Scale: Adult br2 01:10 Pain Scale: Adult kd3 03:33 Pain Scale: Adult bm8 [place] Coma Score: 03:33 Eye Response: spontaneous(4). Motor Response: obeys commands(6). Verbal Response: bm8 oriented(5). Total: 15. MDM: 00:34 Medical Screening Exam initiated [facility] 01:26 Differential diagnosis: abnormal EKG, acute myocardial infarction, acute pericarditis, elvira anxiety, coronary artery disease chest wall pain, congestive heart failure costochondritis, arrythmia, dehydration, gastritis, gastroesophageal reflux disease (GERD), herpes zoster, hiatal hernia, pancreatitis, peptic ulcer disease, pericarditis, pleurisy, pneumonia, pneumothorax, pulmonary embolus, stable angina, unstable angina. HEART Score: History: Moderately Suspicious (1), ECG: Non specific repolarization disturbance / LBTB / PM (1), Age: > 45 and < 65 years (1), Risk Factors: > or = 3 Risk factors for atherosclerotic disease (2), [Active Smoker] [+ Family HX] [Obesity] Troponin: < or = 1 x Normal Limit (0). The patient was given aspirin in the Emergency Department. ENID Risk Score: 1 - Three or more CAD risk factors, 1 - Recent [<24hrs] Severe Angina. Data reviewed: vital signs, nurses notes, lab test result(s), EKG, radiologic studies, plain films. Consideration of Admission/Observation Patient was admitted/placed on observation. Escalation of care including admission/observation considered. I considered the following discharge prescriptions or medication management in the emergency department Medications were administered in the Emergency Department. See MAR. Independent interpretation of the following test(s) in the Emergency Department EKG: See my EKG interpretation above. Test considered but Not performed: Ultrasound no 2 d echo. Care significantly affected by the following chronic conditions: Chronic Obstructive Pulmonary Disease, Obesity, cbp, bipolar, bells, schizo affective. Counseling: I had a detailed discussion with the patient and/or guardian regarding the historical points, exam findings, and any diagnostic results supporting the discharge/admit diagnosis, lab results, radiology results, the need for further work-up and treatment in the hospital. 11/10 00:35 Order name: Basic Metabolic Panel; Complete Time: elvira 11/10 00:35 Order name: CBC with Diff; Complete Time: elvira 11/10 00:35 Order name: LFT's; Complete Time: elvira 11/10 00:35 Order name: Magnesium; Complete Time: elvira 11/10 00:35 Order name: NT PRO-BNP; Complete Time: elvira 11/10 00:35 Order name: PT-INR; Complete Time: [facility] 11/10 00:35 Order name: Troponin HS; Complete Time: 01:54 [facility] 11/10 00:35 Order name: UA Rfx Blaze Cult if indicated elvira 11/10 01:26 Order name: Lipase; Complete Time: 01:54 EDMS 11/10 01:56 Order name: Troponin HS; Complete Time: 02:44 [facility] 11/10 03:13 Order name: Basic Metabolic Panel EDMS 11/10 03:13 Order name: CBC with Automated Diff EDMS 11/10 03:13 Order name: Troponin High Sensitivity EDMS 11/10 03:13 Order name: Troponin High Sensitivity EDMS 11/10 03:13 Order name: Troponin High Sensitivity EDMS 11/10 03:13 Order name: Troponin High Sensitivity EDMS 11/10 03:13 Order name: Troponin High Sensitivity EDMS 11/10 00:35 Order name: XRAY Chest (1 view) [facility] 11/10 03:13 Order name: Echo with Doppler [facility] 11/10 01:56 Order name: EKG; Complete Time: 01:56 [facility] 11/10 03:13 Order name: EKG Electrocardiogram [facility] 11/10 03:13 Order name: EKG Electrocardiogram [facility] 11/10 03:13 Order name: EKG Electrocardiogram [facility] 11/10 03:13 Order name: EKG Electrocardiogram [facility] 11/10 00:35 Order name: Cardiac monitoring; Complete Time: 01:01 [facility] 11/10 00:35 Order name: EKG - Nurse/Tech; Complete Time: 01:01 [facility] 11/10 00:35 Order name: IV Saline Lock; Complete Time: 01:01 [facility] 11/10 00:35 Order name: Labs collected and sent; Complete Time: 01:01 [facility] 11/10 00:35 Order name: O2 Per Protocol; Complete Time: 01:01 [facility] 11/10 00:35 Order name: O2 Sat Monitoring; Complete Time: 01:02 [facility] 11/10 01:56 Order name: EKG - Nurse/Tech; Complete Time: 02:04 [facility] EC:23 Rate is 61 beats/min. Rhythm is regular. QRS [place] is Normal. MS interval is normal. QRS elvira interval is normal. QT interval is normal. No Q waves. T waves are Normal. No ST changes noted. Clinical impression: NSR w/ Non-specific ST/T Changes and No evidence of ischemia. Interpreted by me. Reviewed by me. 02:07 Rate is 50 beats/min. Rhythm is regular. QRS [place] is Normal. MS interval is normal. QRS elvira interval is normal. QT interval is normal. No Q waves. T waves are Normal. No ST changes noted. Clinical impression: Sinus bradycardia and No evidence of ischemia. Interpreted by me. Reviewed by me. Administered Medications: 01:01 Drug: NS 0.9% IV 250 ml IV at per protocol once; to be given as a bolus over 30 minutes bm8 Route: IV; Rate: per protocol; Site: right antecubital; 02:20 Follow up: Response: No adverse reaction; IV Status: Completed infusion bm8 01:28 Drug: Aspirin PO Chewable Tablet 324 mg PO once; 81 mg tablets x 4 Route: PO; kd3 02:20 Follow up: Response: No adverse reaction bm8 01:29 Drug: Famotidine IVP 20 mg IVP once; dilute with 10 mL 0.9% NaCl; give over 2 minutes kd3 Route: IVP; Site: right antecubital; 02:20 Follow up: Response: No adverse reaction bm8 02:43 Drug: Potassium PO Effervescent Tablet 25 mEq PO once; dissolve in 4 ounces of water or kd3 juice Route: PO; 03:34 Follow up: Response: No adverse reaction bm8 02:43 Drug: Enoxaparin Sub-Q 100 mg Sub-Q once Route: Sub-Q; Site: abdomen; kd3 03:34 Follow up: Response: No adverse reaction bm8 02:43 Drug: Banana Bag - (Multivitamin IV 1 amp, NS 0.9% IV 1000 ml, Thiamine IV 100 mg, kd3 foLIC Acid IVPB 1 mg) IV at 125 ml/hr once Route: IV; Rate: 125 ml/hr; Site: right antecubital; 03:33 Follow up: Response: No adverse reaction; IV Status: Infusion continued upon admission bm8 Disposition Summary: 11/10/24 02:18 Hospitalization Ordered Notes: Hospitalization Status: Observation elivra Provider: aMrylin Sidhu cha Location: Telemetry/MedSurg (observation) elvira Condition: Stable elvira Problem: new elvira Symptoms: have improved elvira Bed/Room Type: Standard elvira Room Assignment: 217(11/10/24 03:00) br2 Diagnosis - Unstable angina elvira - Hypokalemia elvira - Tobacco abuse counseling elvira - Tobacco use elvira Forms: - Medication Reconciliation Form elvira - SBAR form elvira - Leadership Thank You Letter elvira Signatures: Dispatcher [employer] EDGeraldo Riggs MD MD cha Doucette, Kyli, RN RN kd3 Mason Carr, RN RN bm8 Shell Kim, RN RN br2 Corrections: (The following items were deleted from the chart) 00:35 00:35 BASIC METABOLIC PANEL+C.LAB.BRZ ordered. EDMS EDMS 00:35 00:35 CBC+H.LAB.BRZ ordered. EDMS EDMS 00:35 00:35 HEPATIC FUNCTION+C.LAB.BRZ ordered. EDMS EDMS 00:35 00:35 MAGNESIUM+C.LAB.BRZ ordered. EDMS EDMS 00:35 00:35 PROBNP+C.LAB.BRZ ordered. EDMS EDMS 00:36 00:35 PROTIME (+INR)+COAG.LAB.BRZ ordered. EDMS EDMS 00:36 00:35 Troponin High Sensitivity+C.LAB.BRZ ordered. EDMS EDMS 00:36 00:35 UA Rfx Blaze Cult if indicated+U.LAB.BRZ ordered. EDMS EDMS 00:36 00:36 Chest Single View+RAD.RAD.BRZ ordered. EDMS EDMS 01:23 01:21 LIPASE+C.LAB.BRZ ordered. EDMS EDMS 01:56 01:56 Troponin High Sensitivity+C.LAB.BRZ ordered. EDMS EDMS 03:00 02:18 elvira br2
[2024-11-10] MEDS ORDERED: MULTIVITAMINS 10 ML VIAL (INJ) IV ONE (02:26)
[2024-11-10] MEDS ORDERED: THIAMINE 200 MG/2 ML INJ ONE (02:26)
[2024-11-10] MEDS ORDERED: FOLIC ACID 5 MG/ML VIAL ONE (02:27)
[2024-11-10] MEDS ORDERED: NA CHLORIDE 0.9% 1,000 ML ONE (02:27)
[2024-11-10 03:02] LABS: Sqamous Epithelial <5 /HPF (None Seen); Urine Culture Reflex Order NOT NEEDED; Urine Microscopic Reflex YN ORDER UMIC
[2024-11-10] MEDS ORDERED: NITROGLYCERIN 0.4 MG/TAB SL PRN (03:07)
[2024-11-10] MEDS ORDERED: MORPHINE 4 MG/ML SYR IV PRN (03:07)
--- NOTE | 2024-11-10 03:12 | P.HP ---
Certification for Inpatient Patient admitted to: Observation With expected LOS: <2 Midnights Patient will require the following post-hospital care: None Practitioner: I am a practitioner with admitting privileges, knowledge of patient current condition, hospital course, and medical plan of care. Services: Services provided to patient in accordance with Admission requirements found in Title 42 Section 412.3 of the Code of Federal Regulations <Duke Monae - Last Filed: 11/10/24 04:07> Patient History Date of Service: 11/10/24 Reason for admission: Chest pain. History of Present Illness: Patient is a pleasant 54-year-old male who is currently homeless, but states a friend has given him a room now to start staying inn, with past medical history of Lezama's palsy, bipolar disorder type II, schizoaffective disorder, chronic back pain, brought to the ER tonight complaining of sudden onset of left chest wall pain. Patient states around 11:30 PM tonight, he suddenly developed a left sided chest wall pain, that radiates to his left upper back, with no associated shortness of breath. Patient describes the chest pain as tight and heavy sensation feeling. Patient denies of any prior chest pain, denies of any family history of cardiac related disease. During admission assessment, patient was fully awake, alert and oriented x 3, states chest pain feel much better at this time. Patient in no acute distress. Troponins x 2 negative, EKG with no ST elevation. - Past Medical/Surgical History Diabetic: No -: shizo-affective disorder -: bipolar disorder -: Lezama's palsy. -: Chronic back pain. -: ear tubes -: Tonsillectomy. -: Adenoid excision. - Family History Mother -: Cancer Notes: Breast Cancer Father -: Hypertension, Seizures Sister -: Cancer Notes: Breast Cancer - Social History Smoking Status: Current every day smoker Smoking therapy provided: Yes Patient receptive to therapy: No Alcohol use: No CD- Drugs: Yes Caffeine use: Yes Place of Residence: Home <Duke Monae - Last Filed: 11/10/24 04:07> Date of Service: 11/10/24 <Marylin Sidhu - Last Filed: 11/16/24 00:52> Allergies codeine Allergy (Mild, Verified 11/10/24 04:07) Anaphylaxis haloperidol [From Haldol] Allergy (Mild, Verified 11/10/24 04:07) Shortness of breath haloperidol lactate [From Haldol] Allergy (Mild, Verified 11/10/24 04:07) Shortness of breath Home Medications: NK [No Home Meds] 08/21/16 Review of Systems 10-point ROS is otherwise unremarkable Cardiovascular: Chest Pain <Duke Monae - Last Filed: 11/10/24 04:07> Physical Examination - Physical Exam General: Alert, In no apparent distress, Oriented x3, Cooperative HEENT: Atraumatic, Normocephalic, PERRLA, Mucous membr. moist/pink Neck: Supple, 2+ carotid pulse no bruit, JVD not distended, No LAD, Without JVD or thyroid abnormality Respiratory: Clear to auscultation bilaterally, Normal air movement Cardiovascular: No edema, Normal pulses, Regular rate/rhythm, Normal S1 S2, Abnormal S3, No gallops, No rubs, No murmurs Capillary refill: <2 Seconds Gastrointestinal: Normal bowel sounds, Hypoactive, Soft and benign, Non- distended, W/out hepatomegaly, No ascites, No tenderness, No masses, No rebound, No guarding Musculoskeletal: No clubbing, No swelling, No contractures, No erythema, No tenderness, No warmth Integumentary: No rashes, No breakdown, No significant lesion, No tenderness/swelling, No erythema, No warmth, No cyanosis Neurological: Normal gait, Normal speech, Normal strength at 5/5 x4 extr, Normal tone, Sensation intact, Cranial nerves 3-12 intact, Normal reflexes 2+, Normal affect Lymphatics: No axilla or inguinal lymphadenopathy - Studies Laboratory Data (last 24 hrs) 11/10/24 11/10/24 11/10/24 01:20 00:58 00:58 WBC 8.50 Hgb 14.4 Hct 41.9 Plt Count 217 PT 12.8 INR 1.14 Sodium Potassium BUN Creatinine Glucose Magnesium Total Bilirubin AST ALT Alkaline Phosphatase Lipase Cancelled 11/10/24 00:58 WBC Hgb Hct Plt Count PT INR Sodium 143 Potassium 3.2 L BUN 14 Creatinine 1.03 Glucose 131 H Magnesium 2.0 Total Bilirubin 1.0 AST 17 ALT 20 Alkaline Phosphatase 100 Lipase 18 <Duke Monae - Last Filed: 11/10/24 04:07> Male Exam - Male Exam Inguinal exam: No hernias, Inguinal lymph node <Duke Monae - Last Filed: 11/10/24 04:07> Assessment and Plan - Plan Patient is a 50-year-old male who reports to ER complaining of chest pain chest pain. Troponin x 2 negative. EKG with no ST abnormalities. (1)Chest pain. Radiates to patient left upper back. - Consult floor steward/stewardess. -Serial troponin every 8 hours x 3. -EKG every 8 x 3. -Order echocardiogram. -Morphine 4 mg every 4 hours as needed IV. -Nitro 0.4 mg sublingual every 5 minutes x 3. (2)Explained the entire treatment plan to the patient, solicited questions answered and voiced understanding. Discharge Plan: Home Plan to discharge in: 48 Hours - Advance Directives Does patient have a Living Will: No Does patient have a Durable POA for Healthcare: No - Code Status/Comfort Care Code Status Assessed: Yes Code Status: Full Code Critical Care: No Time Spent Managing Pts Care (In Minutes): 55 <Duke Monae - Last Filed: 11/10/24 04:07> <Duke Monae - Last Filed: 11/10/24 04:07> <Marylin Sidhu - Last Filed: 11/16/24 00:52> Home Medications: NK [No Home Meds] 08/21/16 Date of Service: 11/10/24 Patient was seen and examined. Events of the last 24 hours have been noted. Spoke with with JOSE regarding patient's clinical picture after evaluating and examining the patient independently. I performed a substantial part of the MDM during this patient's care today. I personally made or approved the documented management plan and acknowledge its risk of complications. I agree with the findings and documentation provided in the JOSE's notes. <Marylin Sidhu - Last Filed: 11/16/24 00:52>
[2024-11-10 04:23] VITALS: O2SAT 98
[2024-11-10 04:37] LABS: Absolute Lymphocytes (CBC) 2.7 K/uL (0.7-4.9); Hematocrit 39.2 % (39.6-49.0); Hemoglobin 13.6 g/dL (13.6-17.9); MCH 30.0 pg (27.0-35.0); MCHC 34.6 g/dL (32.0-36.0); MCV 86.7 fL (80-100); MPV 8.9 fL (7.6-11.3); Nucleated RBC Absolute Count 0.0 (0-0); Nucleated Red Blood Cells % 0.0 % (0-0); RBC Red Blood Cell Count 4.52 M/uL (4.33-5.43); White Blood Count 8.30 thou/uL (4.3-10.9)
[2024-11-10 04:59] LABS: Anion Gap 6.5 mEq/L (5.0-15.0); BUN Blood Urea Nitrogen 16.0 mg/dL (7-18); Glucose Level 97.0 mg/dL (74-106); Potassium 3.5 mEq/L (3.5-5.1); Troponin High Sensitivity 8.0 pg/mL (<58.9)
[2024-11-10 05:28] VITALS: BMI 32.5
--- NOTE | 2024-11-10 06:14 | RAD REPORT ---
TIME OF STUDY: 11/10/2024 12:35 AM CDT REASON FOR EXAM: COUGH COMPARISON: None. FINDINGS: AP view of the chest was obtained, chest 1 view. Lungs: Normal lung volume. No mass, or consolidation. Normal pulmonary vascularity.. No bronchial w all thickening is noted. Pleura: No pneumothorax. There is no pleural effusion. Heart and Mediastinum: Normal cardiomediastinal silhouette and great vessels.. Bones: No acute bony abnormality.. IMPRESSION: 1. No acute cardiopulmonary process. Electronically signed by: Elvis Anders MD 11/10/2024 01:56 AM CDT RP Due to temporary technical issues with the PACS/[employer] reporting system, reports are being harsh d by the in-house radiologist without review as a courtesy to ensure prompt reporting the interpreting radiologist is fully responsible for the content of the report. Transcribed Date/Time: 11/10/2024 6:14 AM
[2024-11-10 08:31] VITALS: BP 129/76; TEMP 97.7
[2024-11-10] MEDS: ASPIRIN EC 81 MG TAB PO SCH (08:53)
[2024-11-10] MEDS: ENOXAPARIN 40 MG/0.4 ML SQ SCH (08:53)
--- NOTE | 2024-11-10 09:43 | P.DS ---
Admission Date: 11/10/24 Discharge Date: 11/10/24 Disposition: AMA-LEFT AGAINST MEDICAL ADVIC Reason for Admission: Chest pain. Brief History of Present Illness: Patient is a pleasant 54-year-old male who is currently homeless, but states a friend has given him a room now to start staying inn, with past medical history of Lezama's palsy, bipolar disorder type II, schizoaffective disorder, chronic back pain, brought to the ER tonight complaining of sudden onset of left chest wall pain. Patient states around 11:30 PM tonight, he suddenly developed a left sided chest wall pain, that radiates to his left upper back, with no associated shortness of breath. Patient describes the chest pain as tight and heavy sensation feeling. Patient denies of any prior chest pain, denies of any family history of cardiac related disease. During admission assessment, patient was fully awake, alert and oriented x 3, states chest pain feel much better at this time. Patient in no acute distress. Troponins x 2 negative, EKG with no ST elevation. Hospital Course: Patient was admitted for chest pain rule out ACS. He had 2 negative troponins and was chest pain-free, EKG without STEMI criteria present. Apparently this morning he became agitated with staff and left AMA. He left facility prior to my ability to chemical dependency counselor further on the risk of leaving AMA although I did see him earlier in the morning prior to this episode of agitation. Vital Signs/Physical Exam: Temp Pulse Resp BP Pulse Ox 97.7 F 61 17 129/76 96 11/10/24 08:00 11/10/24 08:00 11/10/24 08:00 11/10/24 08:00 11/10/24 08:00 General: Alert, In no apparent distress, Oriented x3 HEENT: Atraumatic, PERRLA Neck: Supple, JVD not distended Respiratory: Clear to auscultation bilaterally, Normal air movement Cardiovascular: Regular rate/rhythm, Normal S1 S2 Gastrointestinal: Normal bowel sounds, No tenderness Musculoskeletal: No tenderness Integumentary: No rashes Neurological: Normal speech, Normal tone Laboratory Data at Discharge: WBC 8.30 thou/uL (4.3-10.9) 11/10/24 04:30 Hgb 13.6 g/dL (13.6-17.9) 11/10/24 04:30 Hct 39.2 % (39.6-49.0) L 11/10/24 04:30 Plt Count 191 thou/uL (152-406) 11/10/24 04:30 PT 12.8 SECONDS (10-13.0) 11/10/24 00:58 INR 1.14 11/10/24 00:58 Sodium 142 mEq/L (136-145) 11/10/24 04:30 Sodium Cancelled 11/10/24 04:30 Potassium 3.5 mEq/L (3.5-5.1) 11/10/24 04:30 Potassium Cancelled 11/10/24 04:30 BUN 16 mg/dL (7-18) 11/10/24 04:30 BUN Cancelled 11/10/24 04:30 Creatinine 0.84 mg/dL (0.70-1.30) 11/10/24 04:30 Creatinine Cancelled 11/10/24 04:30 Glucose 97 mg/dL (74-106) 11/10/24 04:30 Glucose Cancelled 11/10/24 04:30 Magnesium 2.0 mg/dL (1.6-2.4) 11/10/24 00:58 Total Bilirubin 1.0 mg/dL (0.2-1.0) 11/10/24 00:58 AST 17 U/L (15-37) 11/10/24 00:58 ALT 20 U/L (16-61) 11/10/24 00:58 Alkaline Phosphatase 100 U/L (45-117) 11/10/24 00:58 Lipase Cancelled 11/10/24 01:20 Home Medications: NK [No Home Meds] 08/21/16 Followup: Sha Matos MD [Primary Care Provider] - Time spent managing pt's care (in minutes): 25
== END 2024-11-10 09:05 | disposition left against medical advice (07) ==
LOC: ER 00:28 → 2ND 03:06
PROVIDERS: ADMIT Hospitalist; ATTEND Internal Medicine
DX: R07.9 Chest pain, unspecified (principal); G51.0 Bell's palsy; F25.9 Schizoaffective disorder, unspecified; M54.9 Dorsalgia, unspecified; R45.1 Restlessness and agitation; Z88.5 Allergy status to narcotic agent; Z59.00 Homelessness unspecified; Z53.29 Procedure and treatment not carried out because of patient's decision for other reasons
CPT/HCPCS: 96365; 96367; 93005 ×2; 85025 ×2; 81001; 80048 ×2; 36415; 83735; 85610; 80076; 84484 ×4; 83690; 83880; 71045; 96375; 96372; 99285; J3411; J1650 ×2; J7050; J7030; G0378 ×2